=== PATIENT | male | born 1945 | race Caucasian/White ===

== ENCOUNTER 2016-09-29 12:40 | Observation (INO) ==
[2016-09-29] MEDS ORDERED: Polyethylene Glycol 3350 255 GM POWDER PO ONE (14:12)
--- NOTE | 2016-09-30 07:31 | History & Physical Report ---
Date of Encounter: 09/30/16 Time of Encounter: 07:30 24 Hour HP Update - Instructions Instructions: If the History and Physical is less than 30 days old and was completed prior to A.M. admission and or procedure and has NOT been updated on calendar day of procedure please complete this update prior to performing procedure. - Update Patient reports changes in Medical Condition: No Changes in assessment/condition: No Changes in Medication: No Preop tests/diagnostics Reviewed: Yes Surgery Remains Indicated: Yes Consent for Planned Operative Procedure(s) Verified: Yes - Pre-Operative Checklist Preoperative Checklist Indicated: No Is VTE Prophylaxis Indicated?: NO
[2016-09-30] MEDS ORDERED: Tetracaine/Benzocaine/Butamben 200MG/SPRAY (100SPY/BOT) MM ONE (07:32)
[2016-09-30] MEDS ORDERED: Simethicone 40 MG/0.6 ML MLS IR ONE (07:32)
[2016-09-30] MEDS ORDERED: *HR* Midazolam HCl 5 MG/5 ML VIAL IVP PRN (07:32)
[2016-09-30] MEDS ORDERED: *HR* FentaNYL (PF) 100 MCG/2 ML VIAL IVP PRN (07:32)
[2016-09-30] MEDS ORDERED: 0.9 % Sodium Chloride 1,000 ML IVC SCH (07:45)
--- NOTE | 2016-09-30 07:46 | Anesthesia Evaluation PreOp ---
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), GERD (diet controlled) Anesthesia History: No Prior Anesthetic Complications Alcohol Use: none Drug use: none Medications and Allergies CeleXA 08/27/15 [History] Erythromycin OPTH Oint [Erythromycin] 0.5 gm BOTH EYES QID 7 Days 08/27/15 [Rx] Flomax 08/27/15 [History] Neurontin 08/27/15 [History] Pravachol 08/27/15 [History] PriLOSEC 08/27/15 [History] Allergies ciprofloxacin Allergy (Verified 08/27/15 19:42) Rash fluconazole Allergy (Verified 08/27/15 19:42) Rash - Meds/Allergy Pre-op Review Medications Reviewed: Yes Allergies Reviewed: Yes Beta Blockers on Current Med List: No Anesthesia Results - Labs Laboratory Tests 07/10/16 07/10/16 07:36 07:36 WBC 8.7 Hgb 11.7 L Hct 38.9 Plt Count 414 H Sodium 143 Potassium 4.0 Chloride 105 Carbon Dioxide 27 BUN 24 Creatinine 0.87 Est GFR ( Amer) > 60 Est GFR (Non-Af Amer) > 60 BUN/Creatinine Ratio 28 H Glucose 87 Calculated Osmolality 299 Calcium 9.2 Anesthesia Exam Last Vital Signs Temp 97.9 F 09/30/16 07:15 Pulse 63 09/30/16 07:15 Resp 15 09/30/16 07:15 BP 166/81 09/30/16 07:15 Pulse Ox 93 L 09/30/16 07:15 - HEENT Pupil (Motor): Pupils equal, EOMI Mallampati: III Teeth: Edentulous Oral Opening: Greater than 3 - [facility] ATTENDANT LOC: Confused - Cardiac Rhythm: Regular Murmur: None - Pulmonary Breath Sounds: bilateral Clear Respiratory Effort: Symmetrical Anesthesia Assess/Plan ASA Score: 3 Modified Crane Scale for Level of Consciousness: Cooperative, oriented, and tranquil Anesthetic Plan: MAC Monitoring Plan: Standard Monitors Recovery Plan: PACU
--- NOTE | 2016-09-30 08:25 | General Surgery Progress Note ---
<Jaiden Zelaya - Last Filed: 09/30/16 08:45> Date of Encounter: 09/30/16 Time of Encounter: 07:20 - Assessment and Plan (1) Weight loss Current Visit: Yes Status: Acute This patient has underwent a 50lbs weight loss despite adequate oral intake. Last colonoscopy was 5 years ago without any polyps removed at that time. The weight loss began 07/2015 and he weighed 167lbs at that time. Caregivers report that the patient eats well and have not noticed any blood in the stools or diarrhea. He received an EGD today which demonstrated atrophic gastritis. He was scheduled for a colonoscopy as well, but was found to have a well formed stool and therefore colonoscopy could not be performed. Omeprazole 20mg daily for atrophic gastritis. The patient tolerated his mirilax bowel prep last night with nearly total completion. Magnesium citrate 1 bottle this morning with a second bottle scheduled in the afternoon. If that patient does not have clear bowel movements after the second bottle, then will proceed with enemas. Repeat colonoscopy after bowel prep complete. Subjective Patient reports: afebrile Narrative: The patient has underlying cognitive deficiencies making questioning difficult. He states he does not currently have any pain. Objective Vital Signs - Last 8 Hours Temp Pulse Resp BP Pulse Ox 09/30/16 07:15 97.9 F 63 15 166/81 93 L 09/30/16 03:33 98.0 F 68 12 141/74 97 Intake and Output 09/29/16 09/30/16 09/30/16 23:59 07:59 15:59 Intake Total 600 / 600 Balance 600 / 600 Intake: Oral 600 / 600 Other: Meal Dinner Stool Size Large Small Stool Consistency liquid Stool Color Brown Yellow # Voids 1 # Bowel Movements 1 1 Weight 56.427 kg Patient Weight 09/30/16 23:59 Weight 56.427 kg - General physical appearance cachectic - Eyes normal ocular movement - Neck Neck exam: trachea midline - Respiratory normal respiratory effort, clear to auscultation - Cardiovascular Cardiovascular exam: Present: RRR - Abdomen Abdomen: Present: bowel sounds present, soft, non tender - Integumentary no rash - Neurologic CN 2-12 grossly intact - Musculoskeletal other (Patient slumped over in bed in left lateral decubitus position.) - Psychiatric oriented to person Consult Discharge Plan - Plan Referrals: Misti Jennings MD [Primary Care Provider] - 10/04/16 2:50 pm - Attending Attestation I examined this patient and my medical decision-making was reviewed with the TRAFFIC ENGINEERING TECHNICIAN/PA/Advanced Practice Nurse/Resident Physician. I agree with the documented findings, disposition and treatment plan as described except to the extent set forth below. <Randal Bae - Last Filed: 09/30/16 14:11> Date of Encounter: 09/30/16 Objective Vital Signs - Last 8 Hours Temp Pulse Resp BP Pulse Ox 09/30/16 11:01 97.5 F L 65 15 150/80 97 09/30/16 07:15 97.9 F 63 15 166/81 93 L Intake and Output 09/29/16 09/30/16 09/30/16 23:59 07:59 15:59 Intake Total 600 / 600 360 / 360 Balance 600 / 600 360 / 360 Intake: Oral 600 / 600 360 / 360 Other: Meal Dinner clears Stool Size Large Small Stool Consistency liquid liquid Stool Color Brown Brown Yellow # Voids 1 # Bowel Movements 1 1 # Bowel Movement Diapers 5 Weight 56.427 kg Patient Weight 09/30/16 23:59 Weight 56.427 kg - Attending Attestation The patient was seen and evaluated today with the resident. I agree with the above documentation. The patient underwent EGD that demonstrated hemorrhagic atrophic gastritis as well as a large hiatal hernia and a suspected short segment of Marks's esophagus. The patient is a member of a half-way and is psychologically unable to perform the bowel prep as an outpatient. He was admitted as outpatient in the bed for bowel preparation. The patient did take all of his Gatorade MiraLAX prep but failed to get an adequate cleanout for colonoscopy. We will repeat his bowel preparation the day and perform his colonoscopy tomorrow. Randal Bae MD FACS
--- NOTE | 2016-09-30 10:17 | Anesthesia Evaluation Post Op ---
Date of Encounter: 09/30/16 Time of Encounter: 09:00 - Vital Signs Vital Signs: - Lungs Lungs: Clear Ascult./Percussion - Airway Airway: Non-obstructed - Cardiovascular Regular Rate - Mental Status Mental Status: Baseline Status - Pain Pain Scale: 2 - Nausea Vomiting Nausea Vomiting: Not Present - Hydration Hydration: NPO - Discharge PostOp Status: Transfer Patient to floor
[2016-09-30] MEDS: Finasteride 5 MG TABLET PO SCH (16:57)
[2016-09-30] MEDS: Aspirin 81 MG TAB.CHEW PO SCH (16:57)
--- NOTE | 2016-10-01 08:03 | General Surgery Progress Note ---
<Jaiden Zelaya - Last Filed: 10/01/16 09:55> Date of Encounter: 10/01/16 Time of Encounter: 07:15 - Assessment and Plan (1) Weight loss Current Visit: Yes Status: Acute He received an EGD yesterday which demonstrated atrophic gastritis. Omeprazole was started 20mg daily for atrophic gastritis. The patient tolerated his mirilax bowel prep last night with nearly total completion. 2 bottles of magnesium citrate given yesterday resulting in additional bowel movements, but did not become clear. Tap water enema given this morning. Repeat mirilax bowel prep during the day today as much as is tolerable for the patient. Repeat colonoscopy after bowel prep complete. Increase IV fluids from 50ml/hr to 75ml/hr to replenish fluid losses from bowel prep. Subjective Patient reports: no new complaints, afebrile Narrative: The patient is not very verbal at baseline. He was smiling this morning and responsive to commands. Objective Vital Signs - Last 8 Hours Temp Pulse Resp BP Pulse Ox 10/01/16 07:26 98 F 72 18 160/86 96 10/01/16 04:43 97.5 F L 72 20 160/83 96 10/01/16 03:20 97.3 F L 70 15 158/86 97 Intake and Output 09/30/16 10/01/16 10/01/16 23:59 07:59 15:59 Intake Total 400 / 400 Balance 400 / 400 Intake: Oral 400 / 400 Other: Meal Dinner # Voids 1 1 # Bowel Movements 1 1 Weight 51.3 kg Patient Weight 10/01/16 23:59 Weight 51.3 kg - General physical appearance no distress, cachectic - Eyes normal ocular movement - ENT normal mucosa - Respiratory normal respiratory effort, clear to auscultation - Cardiovascular Cardiovascular exam: Present: RRR - Abdomen Abdomen: Present: bowel sounds present, soft, non tender - Integumentary no rash - Neurologic CN 2-12 grossly intact - Musculoskeletal other (patient laying in bed in the left lateral decubitus position) - Psychiatric oriented to person - VTE Reasons for not Prescribing Prophylaxis: Treatment not Indicated - Low risk for VTE Consult Discharge Plan - Plan Referrals: Misti Jennings MD [Primary Care Provider] - 10/04/16 2:50 pm - Attending Attestation I examined this patient and my medical decision-making was reviewed with the EMPLOYMENT OFFICER/PA/Advanced Practice Nurse/Resident Physician. I agree with the documented findings, disposition and treatment plan as described except to the extent set forth below. <Randal Bae - Last Filed: 10/01/16 15:48> Objective Vital Signs - Last 8 Hours Temp Pulse Resp BP Pulse Ox 10/01/16 11:24 95 10/01/16 11:06 97.9 F 61 18 183/77 95 Intake and Output 09/30/16 10/01/16 10/01/16 23:59 07:59 15:59 Intake Total 400 / 400 0 / 0 Balance 400 / 400 0 / 0 Intake: Oral 400 / 400 0 / 0 Other: Meal Dinner npo # Voids 1 1 # Bowel Movements 1 1 Weight 51.3 kg Patient Weight 10/01/16 23:59 Weight 51.3 kg - Attending Attestation The patient is seen and evaluated with the resident on morning rounds. The patient continues to be challenged with bowel preparation. We will had another bowel prep today and hopefully proceed with colonoscopy later this afternoon Randal Bae MD FACS
[2016-10-01] MEDS: Aspirin 81 MG TAB.CHEW PO SCH (08:32)
[2016-10-01] MEDS: 0.9 % Sodium Chloride 1,000 ML IVC SCH ×2 (08:32→23:36)
[2016-10-01] MEDS: Finasteride 5 MG TABLET PO SCH (08:32)
[2016-10-01] MEDS ORDERED: Polyethylene Glycol 3350 255 GM POWDER PO ONE (09:00)
[2016-10-01] MEDS ORDERED: *HR* FentaNYL (PF) 100 MCG/2 ML VIAL IVP PRN (17:50)
[2016-10-01] MEDS ORDERED: Simethicone 40 MG/0.6 ML MLS IR ONE (17:50)
[2016-10-01] MEDS ORDERED: *HR* Midazolam HCl 5 MG/5 ML VIAL IVP PRN (17:50)
--- NOTE | 2016-10-01 17:50 | Pre-Sedation Evaluation ---
Pre-sedation evaluation - Pre-sedation checklist Date of procedure: 10/01/16 Procedure: colonoscopy Recent Vitals: Last Vital Signs Temp 97.9 F 10/01/16 11:06 Pulse 61 10/01/16 11:06 Resp 18 10/01/16 11:06 BP 183/77 10/01/16 11:06 Pulse Ox 95 10/01/16 11:24 H&P (including ROS) documented in medical record: Yes Previous reaction to sedatives/anesthetics: Unknown Dietary Status: NPO after Midnight Airway Assessment: Patient can open mouth completely, TMJ function normal Dentition: No loose teeth or bridges Possible difficult airway: No ASA Classification *see protocol: CLASS III-Severe systemic disease Plan of Care: Pt appropriate candidate for procedure/moderate/conscious sedation , Risks/benefits of procedure/sedation discussed w/ patient/family
[2016-10-01] MEDS ORDERED: *HR* Midazolam HCl 5 MG/5 ML VIAL IVP ONE (17:52)
[2016-10-01] MEDS ORDERED: *HR* FentaNYL (PF) 100 MCG/2 ML VIAL ONE (17:53)
[2016-10-02 07:21] VITALS: BP 199/91
--- NOTE | 2016-10-02 08:05 | Discharge Summary ---
<Jaiden Zelaya - Last Filed: 10/02/16 11:30> Date of Encounter: 10/02/16 Time of Encounter: 08:15 - Discharge Diagnosis (1) Weight loss Priority: Primary Status: Acute - Discharge Medications Home Medications: Aspirin Enteric Coated [Aspirin EC] 81 mg PO DAILY 09/30/16 [History] Citalopram [CeleXA] 20 mg PO DAILY 09/30/16 [History] Finasteride [Proscar] 5 mg PO DAILY 09/30/16 [History] Gabapentin [Neurontin] 100 mg PO HS 09/30/16 [History] Omeprazole [PriLOSEC] 20 mg PO DAILY 09/30/16 [History] Pravastatin Sodium [Pravachol] 20 mg PO DAILY 09/30/16 [History] Sennosides/Docusate Sodium [Senna Plus] 1 each PO BID PRN 09/30/16 [History] Tamsulosin [Flomax] 0.4 mg PO DAILY 09/30/16 [History] Triamcinolone Acet 0.1% CRM [Kenalog] 1 appl TP BID 09/30/16 [History] Allergies/Adverse Reactions: Allergies ciprofloxacin Allergy (Verified 08/27/15 19:42) Rash fluconazole Allergy (Verified 08/27/15 19:42) Rash General Surgery Exam Initial Vital Signs Temp Pulse Resp BP Pulse Ox 97.3 F L 75 16 163/82 99 09/29/16 13:12 09/29/16 13:12 09/29/16 13:12 09/29/16 13:12 09/29/16 13:12 - General physical appearance no distress, cachectic - Eyes normal ocular movement - ENT normal mucosa - Neck trachea midline - Respiratory normal respiratory effort, clear to auscultation - Cardiovascular Cardiovascular exam: Present: RRR - Abdomen Abdomen general surgery: Present: bowel sounds present, soft, non tender, scaphoid - Integumentary Integumentary general surgery: Present: warm and dry - Neurologic Present: other (unable to assess at this time.) - Musculoskeletal Present: normal posture - Psychiatric Psychiatric general surgery: Present: oriented to person Date of admission: 09/30/16 15:16 Primary care physician: Misti Jennings MD Discharging clinician: Randal Bae Anticipated date of discharge: 10/02/16 - Patient Status Disposition: Transfer SNF Condition: Fair Functional capacity at discharge: wheelchair bound Overall status at discharge: patient is back to baseline - Discharge Instructions Instructions: Diverticulitis (DC), Colorectal Polyps (DC) Follow Up With: Misti Jennings MD [Primary Care Provider] - 10/04/16 2:50 pm - Diet and Activity Activity: increase activity as tolerated Diet: advance to your usual diet - Hospital Course Hospital course: Mr. Panchal is a 71 year old male who was admitted as an outpatient in a bed the day prior to EGD with colonoscopy due to underlying cognitive deficit. He received a miralax bowel prep the night before, which was tolerated well. His colonoscopy could not be performed due to a formed stool being in the rectal vault. He received 2 bottles of magnesium citrate, which caused him to have several bowel movements, which were still not clear. He underwent a tap water enema the next morning of 10/01/16, which was reported as clear but had some resistance. Another Miralax bowel prep was ordered, and the patient was able to complete 3/4 of this prep. Colonoscopy was performed by Dr. Bae in the afternoon of 10/01/16. The patient tolerated the procedures well and is now cleared for discharge. - Time Spent with Patient Total time spent providing and/or coordinating discharge services: Less than 30 minutes Labs on day of discharge: Labs from last 24 hours 10/01/16 15:30 MRSA Surveillance Scrn Negative - Attending Attestation I examined this patient and my medical decision-making was reviewed with the SHAKER WASHER/PA/Advanced Practice Nurse/Resident Physician. I agree with the documented findings, disposition and treatment plan as described except to the extent set forth below. <Randal Bae - Last Filed: 10/04/16 08:23> General Surgery Exam Initial Vital Signs Temp Pulse Resp BP Pulse Ox 97.3 F L 75 16 163/82 99 09/29/16 13:12 09/29/16 13:12 09/29/16 13:12 09/29/16 13:12 09/29/16 13:12 Date of admission: 09/30/16 15:16 Primary care physician: Misti Jennings MD Consults: 10/02/16 09:06 Consult to Minesweeping Officer [CONS] Routine Reason for SW Consult: D/C AFTER ECF PLACEMENT - Hospital Course Hospital course: Mr. Panchal is a 71 year old male - Time Spent with Patient Total time spent providing and/or coordinating discharge services: - Attending Attestation The patient is seen and evaluated with rest and on morning rounds. He is back to his baseline. He has no abdominal pain. He is appropriate for discharge. Interval surveillance colonoscopy after polypectomy be determined by the pathology report polyps. He is appropriate for discharge. Randal Bae MD FACS
[2016-10-02] MEDS: 0.9 % Sodium Chloride 1,000 ML IVC SCH (09:01)
[2016-10-02] MEDS: Aspirin 81 MG TAB.CHEW PO SCH (09:06)
[2016-10-02] MEDS: Finasteride 5 MG TABLET PO SCH (09:06)
[2016-10-02] MEDS ORDERED: *HR* Propofol 200 MG/20 ML VIAL IVP ONE (11:25)
== END 2016-10-02 11:26 ==
LOC: SAMDAY 12:40 → 3BNU 12:40 → 2ANU 10-01 04:22
PROVIDERS: ADMIT Surgery; ATTEND Surgery
PROC: ENDOEBX (2016-09-30 08:30)

== ENCOUNTER 2016-10-15 00:35 | Inpatient (IN) ==
--- NOTE | 2016-10-15 01:39 | Emergency Department Note ---
Disposition Clinical Impression: Closed intertrochanteric fracture of left femur Qualifiers: Encounter type: initial encounter Qualified Code(s): S72.142A - Displaced intertrochanteric fracture of left femur, initial encounter for closed fracture Disposition: Admitted As Inpatient Condition: Fair Time of Disposition: 04:35 Fall HPI - General Chief Complaint: ED Fall Stated Complaint: fall Time Seen by Provider: 10/15/16 00:52 Source: patient, family, EMS Mode of arrival: ambulatory Limitations: no limitations Nursing Notes Reviewed: Yes Vital Signs Reviewed: Yes - History of Present Illness HPI Narrative: 71-year-old male with mechanical fall from standing, onto left hip. Patient with history of possible dementia, generalized weakness. Unable to ambulate after fall. /10 pain and achiness of the left hip. Possible deformity. His caregivers is primary historian, he was a limited history. Pt Subjective Complaint: fall Onset (ago): hour(s) Fall From: standing Fall Witnessed: no Place Fall Occurred: home Loss of Consciousness: unsure Prolonged Down Time?: no Context: tripped/slipped Location of injury - extremities: Left: hip Severity: moderate Severity scale (1-10): 6 Associated symptoms (after fall): Reports: weakness - Related Data Home Medications Medication Instructions Recorded Confirmed Aspirin Enteric Coated [Aspirin EC] 81 mg PO DAILY 09/30/16 10/15/16 Citalopram [CeleXA] 20 mg PO DAILY 09/30/16 10/15/16 Finasteride [Proscar] 5 mg PO DAILY 09/30/16 10/15/16 Omeprazole [PriLOSEC] 40 mg PO DAILY 09/30/16 10/15/16 Pravastatin Sodium [Pravachol] 20 mg PO DAILY 09/30/16 10/15/16 Sennosides/Docusate Sodium [Senna 1 each PO BID PRN 09/30/16 10/15/16 Plus] Tamsulosin [Flomax] 0.4 mg PO DAILY 09/30/16 10/15/16 Triamcinolone Acet 0.1% CRM 1 appl TP BID 09/30/16 10/15/16 [Kenalog] Mirtazapine [Mirtazapine] 15 mg PO HS 10/15/16 10/15/16 OLANZapine [Olanzapine] 10 mg PO DAILY 10/15/16 10/15/16 Allergies Allergy/AdvReac Type Severity Reaction Status Date / Time ciprofloxacin Allergy Rash Verified 08/27/15 19:42 fluconazole Allergy Rash Verified 08/27/15 19:42 Review of Systems: All systems were reviewed with historian and negative except as per below, or as documented in the HPI. Constitutional: Denies: fever, chills, weight changes CV: Denies: chest pain, palpitations Resp: Denies: cough, dyspnea GI: Denies: abdominal pain, N/V/D/C Denies: dysuria, hematuria MSK: Positive for left hip pain. Skin: Denies: new rashes, new lesions Neuro: unable to ambulate Denies: MARTI, weakness, sensory changes All systems ED: reviewed and negative except as stated. (Review of systems obtained and somewhat limited secondary to historian,) Fall PMH - Past Medical History Medical history: Reports: dementia, hyperlipidemia, hypertension, renal disease Psychiatric history: Reports: anxiety - Social History Smoking Status: Former smoker Alcohol use: Reports: none Drug use: Reports: none Physical Exam Constitutional: Thin cachectic male, appears moderately uncomfortable HEENT: NCAT, sclera anicteric, PERRLA bilaterally, normal external ears bilaterally, nasal septum nondeviated, average dentition, MMM Neck: normal inspection, neck is supple, trachea midline Resp: normal chest inspection, CTA bilaterally, thin barrel chested. CV: diminished Breath sounds bilaterally GI: normal inspection, Soft, NTND, BS present Neuro: A&O2, no gross motor or sensory deficits bilaterally MSK: Externally rotated shortened left leg, tenderness palpation of the left hip. There is no obvious deformity. Psych: normal mood, normal affect Skin: No rashes, skin warm, dry, intact - General Limitations: no limitations General appearance: alert, in no apparent distress Course Course Narrative: 71-year-old male with mechanical fall and left hip, given shortly rotated, shortened suspect fracture, x-ray CT had basic lab work ordered for workup. - Reevaluation(s) Reevaluation #1: Is with mild hypo-hypotension likely secondary to morphine, blood pressure 60/40 , fluid bolus ordered by Dr. Santana, patient to be admitted to the hospitalist service Dr. Elizalde accepted. Time: 04:36 Vital Signs Temperature 98.9 F 10/15/16 00:38 Pulse Rate 63 10/15/16 00:38 Respiratory Rate 18 10/15/16 00:38 Blood Pressure 213/113 10/15/16 00:38 O2 Sat by Pulse Oximetry 99 10/15/16 00:38 Temperature 98.1 F 10/15/16 15:00 Pulse Rate 85 10/15/16 15:00 Respiratory Rate 18 10/15/16 15:00 Blood Pressure 105/73 10/15/16 15:00 O2 Sat by Pulse Oximetry 96 10/15/16 15:00 Oxygen Delivery Oxygen Delivery Room Air Fall - Differential Diagnosis Likely: syncope, traumatic injury - Medical Records Medical records reviewed: Yes I reviewed the patient's medical records. - Lab Data Lab results reviewed: Yes I reviewed the patient's lab results. Result diagrams: 10/15/16 01:35 10/15/16 01:35 Lab Results 10/15/16 10/15/16 10/15/16 Range/Units 01:35 01:35 01:35 WBC 9.9 (4.3-11.1) K/mcL RBC 4.28 (4.19-5.50) M/mcL Hgb 11.5 L (12.9-16.9) g/dL Hct 37.0 L (37.5-50.1) % MCV 86.4 (83.0-100.0) fL MCH 26.9 L (28.0-33.3) pg MCHC 31.1 L (31.6-35.5) g/dL RDW 16.0 H (11.5-14.5) % Plt Count 284 (140-400) K/mcL MPV 9.6 (9.4-12.4) fL Immature Gran % 0.4 (0-4) % Seg Neutrophils % 79.0 % Lymphocytes % 13.1 % Monocytes % 5.3 % Eosinophils % 2.0 % Basophils % 0.2 % Neutrophils # 7.8 (1.6-8.9) K/mcL Lymphocytes # 1.3 (0.6-4.6) K/mcL Monocytes # 0.5 (0.0-1.3) K/mcL Eosinophils # 0.2 (0.0-0.6) K/mcL Basophils # 0.0 (0.0-0.2) K/mcL PT (9.4-12.1) Seconds INR APTT (26.0-36.0) Seconds Sodium 141 (136-145) mEq/L Potassium 4.7 H (3.5-4.5) mEq/L Chloride 103 (98-109) mEq/L Carbon Dioxide 27 (19-29) mEq/L BUN 22 (8-26) mg/dL Creatinine 1.25 (0.72-1.25) mg/dL Est GFR ( Amer) > 60 (> 60) Est GFR (Non-Af Amer) 57 L (> 60) BUN/Creatinine Ratio 18 (6-26) Glucose 83 (70-99) mg/dL Calculated Osmolality 294 (280-300) Calcium 8.5 L (8.6-10.8) mg/dL Phosphorus (2.3-4.7) mg/dL Magnesium (1.6-2.6) mg/dL Troponin I 0.00 (0-0.03) ng/mL Urine Color (Yellow) Urine Clarity (Clear) Urine pH (5.0-8.0) pH Units Ur Specific [place] (1.010-1.025) Urine Protein (Neg-Trace) mg/dL Urine Glucose (UA) (Normal) mg/dL Urine Ketones (Negative) mg/dL Urine Blood (Negative) Urine Nitrite (Negative) Urine Bilirubin (Negative) Urine Urobilinogen (Normal) mg/dL Ur Leukocyte Esterase (Negative) Urine Microscopic RBC (0-3) per hpf Urine Microscopic WBC (0-3) per hpf Ur Squamous Epith Cells (None-Few) per lpf Ur Renal Epithelial Cell (None-Few) per hpf Urine Bacteria (None-Few) per hpf Hyaline Casts (None-Few) per lpf Ur Culture Indicated? (NO) 10/15/16 10/15/16 10/15/16 Range/Units 03:30 08:06 08:06 WBC (4.3-11.1) K/mcL RBC (4.19-5.50) M/mcL Hgb (12.9-16.9) g/dL Hct (37.5-50.1) % MCV (83.0-100.0) fL MCH (28.0-33.3) pg MCHC (31.6-35.5) g/dL RDW (11.5-14.5) % Plt Count (140-400) K/mcL MPV (9.4-12.4) fL Immature Gran % (0-4) % Seg Neutrophils % % Lymphocytes % % Monocytes % % Eosinophils % % Basophils % % Neutrophils # (1.6-8.9) K/mcL Lymphocytes # (0.6-4.6) K/mcL Monocytes # (0.0-1.3) K/mcL Eosinophils # (0.0-0.6) K/mcL Basophils # (0.0-0.2) K/mcL PT 11.6 (9.4-12.1) Seconds INR 1.1 APTT 27.3 (26.0-36.0) Seconds Sodium (136-145) mEq/L Potassium (3.5-4.5) mEq/L Chloride (98-109) mEq/L Carbon Dioxide (19-29) mEq/L BUN (8-26) mg/dL Creatinine (0.72-1.25) mg/dL Est GFR ( Amer) (> 60) Est GFR (Non-Af Amer) (> 60) BUN/Creatinine Ratio (6-26) Glucose (70-99) mg/dL Calculated Osmolality (280-300) Calcium (8.6-10.8) mg/dL Phosphorus 4.0 (2.3-4.7) mg/dL Magnesium 1.5 L (1.6-2.6) mg/dL Troponin I (0-0.03) ng/mL Urine Color Yellow (Yellow) Urine Clarity Clear (Clear) Urine pH 7.5 (5.0-8.0) pH Units Ur Specific [place] 1.006 L (1.010-1.025) Urine Protein 30 H (Neg-Trace) mg/dL Urine Glucose (UA) Normal (Normal) mg/dL Urine Ketones Negative (Negative) mg/dL Urine Blood Large H (Negative) Urine Nitrite Negative (Negative) Urine Bilirubin Negative (Negative) Urine Urobilinogen Normal (Normal) mg/dL Ur Leukocyte Esterase Negative (Negative) Urine Microscopic RBC TNTC H (0-3) per hpf Urine Microscopic WBC 0-3 (0-3) per hpf Ur Squamous Epith Cells Many H (None-Few) per lpf Ur Renal Epithelial Cell Few (None-Few) per hpf Urine Bacteria Few (None-Few) per hpf Hyaline Casts None Seen (None-Few) per lpf Ur Culture Indicated? NO (NO) 10/15/16 Range/Units 08:06 WBC (4.3-11.1) K/mcL RBC (4.19-5.50) M/mcL Hgb (12.9-16.9) g/dL Hct (37.5-50.1) % MCV (83.0-100.0) fL MCH (28.0-33.3) pg MCHC (31.6-35.5) g/dL RDW (11.5-14.5) % Plt Count (140-400) K/mcL MPV (9.4-12.4) fL Immature Gran % (0-4) % Seg Neutrophils % % Lymphocytes % % Monocytes % % Eosinophils % % Basophils % % Neutrophils # (1.6-8.9) K/mcL Lymphocytes # (0.6-4.6) K/mcL Monocytes # (0.0-1.3) K/mcL Eosinophils # (0.0-0.6) K/mcL Basophils # (0.0-0.2) K/mcL PT (9.4-12.1) Seconds INR APTT (26.0-36.0) Seconds Sodium (136-145) mEq/L Potassium (3.5-4.5) mEq/L Chloride (98-109) mEq/L Carbon Dioxide (19-29) mEq/L BUN (8-26) mg/dL Creatinine (0.72-1.25) mg/dL Est GFR ( Amer) (> 60) Est GFR (Non-Af Amer) (> 60) BUN/Creatinine Ratio (6-26) Glucose (70-99) mg/dL Calculated Osmolality (280-300) Calcium (8.6-10.8) mg/dL Phosphorus (2.3-4.7) mg/dL Magnesium (1.6-2.6) mg/dL Troponin I 0.00 (0-0.03) ng/mL Urine Color (Yellow) Urine Clarity (Clear) Urine pH (5.0-8.0) pH Units Ur Specific [place] (1.010-1.025) Urine Protein (Neg-Trace) mg/dL Urine Glucose (UA) (Normal) mg/dL Urine Ketones (Negative) mg/dL Urine Blood (Negative) Urine Nitrite (Negative) Urine Bilirubin (Negative) Urine Urobilinogen (Normal) mg/dL Ur Leukocyte Esterase (Negative) Urine Microscopic RBC (0-3) per hpf Urine Microscopic WBC (0-3) per hpf Ur Squamous Epith Cells (None-Few) per lpf Ur Renal Epithelial Cell (None-Few) per hpf Urine Bacteria (None-Few) per hpf Hyaline Casts (None-Few) per lpf Ur Culture Indicated? (NO) - Radiology Data Radiology results reviewed: Yes I reviewed the patient's radiology results. Chest X-Ray 10/15/16 01:06 IMPRESSION: No acute cardiopulmonary disease. D/ / Partha Corona MD / Partha Corona MD Interpreting Provider: Partha Corona MD Head CT 10/15/16 01:06 IMPRESSION: 1. No acute intracranial abnormality. 2. Changes of prior right occipital craniotomy with underlying right cerebellar encephalomalacia. 3. 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 D/ / Serafin Veras MD / Serafin Veras MD Interpreting Provider: Serafin Veras MD Hip X-Ray 10/15/16 01:06 IMPRESSION: Acute, angulated left intertrochanteric femur fracture. D/ / Partha Corona MD / Partha Corona MD Interpreting Provider: Partha Corona MD Femur X-Ray 10/15/16 03:14 IMPRESSION: No fracture or malalignment in the visualized left femur. Left hip fracture was not included on these images. D/ / Partha Corona MD / Partha Corona MD Interpreting Provider: Partha Corona MD - EKG Data EKG attestation: Yes I reviewed and interpreted this EKG. EKG shows normal: sinus rhythm (65 bpm MA 209 distress [address] segment elevations or depressions right bundle branch block ) Rate: normal Rhythm: NSR Dawson/QRS: RBBB Interpretation: no acute changes, normal EKG - Core Measures AMI Core Measures Followed: No Measure Exclusions: not indicated Attestation Statement - Attestation Attestation: I personally interviewed and examined this patient and my medical decision- making was reviewed and discussed with the ED Resident Physician, Dr. Owusu. I agree with the documented findings, disposition and treatment plan as described in the chart. Pt sustained L intertroch hip fx secondary to mechanical fall. History provided by his caregiver at bedside. Pt will be admitted to medicine and orthopedics was consulted from the ED for mgmt of his hip fracture.
[2016-10-15 01:44] LABS: Basophils % 0.2 %; Eosinophils # 0.2 K/mcL (0.0-0.6); Hemoglobin 11.5 g/dL (12.9-16.9); Immature Granulocytes % 0.4 % (0-4); Lymphocytes # 1.3 K/mcL (0.6-4.6); Lymphocytes % 13.1 %; Mean Corpuscular HGB Conc 31.1 g/dL (31.6-35.5); Mean Corpuscular Hemoglobin 26.9 pg (28.0-33.3); Mean Corpuscular Volume 86.4 fL (83.0-100.0); Mean Platelet Volume 9.6 fL (9.4-12.4); Monocytes # 0.5 K/mcL (0.0-1.3); Monocytes % 5.3 %; Neutrophils # 7.8 K/mcL (1.6-8.9); Platelet Count 284 K/mcL (140-400); Red Blood Count 4.28 M/mcL (4.19-5.50)
[2016-10-15 02:20] LABS: BUN/Creatinine Ratio 18 (6-26); Blood Urea Nitrogen 22 mg/dL (8-26); Calcium 8.5 mg/dL (8.6-10.8); Carbon Dioxide 27 mEq/L (19-29); Chloride 103 mEq/L (98-109); Glucose 83 mg/dL (70-99); Osmolality,Calculated 294 (280-300); Potassium 4.7 mEq/L (3.5-4.5); Sodium 141 mEq/L (136-145); eGFR For African Americans > 60 (> 60); eGFR For Non-African Americans 57 (> 60)
[2016-10-15] MEDS ORDERED: *HR* Morphine 2 MG/ML SYRINGE IVP ONE (03:12)
[2016-10-15] MEDS ORDERED: Ondansetron 4 MG/2 ML VIAL IVP ONE (03:13)
[2016-10-15] MEDS ORDERED: 0.9 % Sodium Chloride 500 ML ONE (03:49)
[2016-10-15 04:43] LABS: Bilirubin,Urine Negative (Negative); Blood,Urine Large (Negative); Clarity,Urine Clear (Clear); Color,Urine Yellow (Yellow); Glucose,Urine (UA) Normal (Normal); Ketones,Urine Negative (Negative); Leukocyte Esterase,Urine Negative (Negative); Nitrite,Urine Negative (Negative); PH,Urine 7.5 pH Units (5.0-8.0); Protein,Urine 30 mg/dL (Neg-Trace); Specific Gravity,Urine 1.006 (1.010-1.025); Urobilinogen,Urine Normal (Normal)
[2016-10-15 04:46] LABS: Hyaline Casts,Urine None Seen per lpf (None-Few); Squamous Epithelial Cell,Urine Many per lpf (None-Few); WBC,Urine 0-3 per hpf (0-3)
[2016-10-15 05:06] LABS: RBC,Urine TNTC per hpf (0-3); Renal Epithelial Cells,Urine Few per hpf (None-Few)
[2016-10-15 05:07] LABS: Bacteria,Urine Few per hpf (None-Few)
[2016-10-15] MEDS ORDERED: Sennosides/Docusate Sodium TABLET PO PRN (05:53)
[2016-10-15] MEDS ORDERED: *HR* Morphine 2 MG/ML SYRINGE IVP PRN (05:55)
[2016-10-15] MEDS ORDERED: Acetaminophen 325 MG TABLET PO PRN (05:55)
[2016-10-15] MEDS ORDERED: Ondansetron 4 MG/2 ML VIAL IVP PRN (05:55)
[2016-10-15] MEDS ORDERED: *HR* OxyCODONE Immed Rel 5 MG TABLET PO PRN (05:55)
[2016-10-15] MEDS ORDERED: Naloxone 0.4 MG/ML INJ IVP PRN (05:55)
--- NOTE | 2016-10-15 06:12 | Internal Med History&Physical ---
Date of Encounter: 10/15/16 Time of Encounter: 06:00 Assessment and Plan (1) HTN (hypertension) Current visit: Yes Status: Chronic . Qualifiers: Hypertension type: essential hypertension Qualified Code(s): I10 - Essential (primary) hypertension (2) CKD (chronic kidney disease) stage 3, GFR 30-59 ml/min Current visit: Yes Status: Chronic . (3) Anxiety associated with depression Current visit: Yes Status: Chronic . (4) Mental retardation Current visit: Yes Status: Chronic . (5) Dementia arising in the senium and presenium Current visit: Yes Status: Chronic . (6) Plaque psoriasis Current visit: Yes Status: Chronic . (7) HLD (hyperlipidemia) Current visit: Yes Status: Chronic . Qualifiers: Hyperlipidemia type: unspecified Qualified Code(s): E78.5 - Hyperlipidemia , unspecified (8) COPD (chronic obstructive pulmonary disease) Current visit: Yes Status: Chronic . Qualifiers: COPD type: unspecified COPD Qualified Code(s): J44.9 - Chronic obstructive pulmonary disease, unspecified (9) Closed intertrochanteric fracture of left femur Current visit: Yes Status: Acute . Qualifiers: Encounter type: initial encounter Qualified Code(s): S72.142A - Displaced intertrochanteric fracture of left femur, initial encounter for closed fracture (10) Weight loss Current visit: Yes Status: Acute . (11) Anemia Current visit: Yes Status: Acute . Qualifiers: Anemia type: unspecified type Qualified Code(s): D64.9 - Anemia, unspecified (12) Osteoarthritis involving multiple joints on both sides of body Current visit: Yes Status: Chronic . (13) Atherosclerotic cardiovascular disease Current visit: Yes Status: Chronic . (14) Vitamin D deficiency Current visit: Yes Status: Chronic . (15) BPH (benign prostatic hypertrophy) with urinary retention Current visit: Yes Status: Chronic . (16) Poor appetite Current visit: Yes Status: Chronic . (17) At risk for acute confusion Current visit: Yes Status: Acute . (18) At risk for activity intolerance Current visit: Yes Status: Acute . Internal Medicine - H&P: HPI Chief complaint: Mechanical fall. Left leg injury Admitted From: Emergency Dept Plans for Post Hospital Care: Home History of present illness: Mr. Panchal is a 71 year old male with history significant of MRDD, early dementia unspecified, hypertension, dyslipidemia, BPH/prostatism with urinary retention, depression-anxiety, GERD, chronic constipation, chronic plaque psoriasis, anemia of chronic disease, glaucoma, CKD II-III, vit D deficiency, osteoarthritis, COPD, former smoker. The patient was visited and interviewed and examined. Patient presents as a non -historian circumstances of the events of his chronic debility/MRDD. Details of events are collected from caregiver/guardian at the bedside. She was admitted via the emergency department when he presents in the company of family via EMS services from home following a mechanical fall with injury. She presents a history of MR DD increasing degrees of behavioral disturbances of late for which she caregiver/guardian has sought assistance from family care physician for sedatives to address. She will treatments by the primary care physician or poorly tolerated and were withdrawn and with their withdrawal the patient became much more hyper active. Consequently experienced increasing frequencies of falls. Appetite has been poor and some weight loss has been seen along with a sense generalized weakness. It was due to the hyperactivity that is felt led to the mechanical fall. Patient was unable to ambulate following the fall. Pain was assisted being roughly a 6-7/10 in severity. Severe achiness of the left hip and leg but it is mobility. He refers witnessing his distress somewhat to EMS transport to the emergency room for evaluation. Findings in the ED: Temperature 98.9 pulse 63-85 respirations 18 BP 105-213/73- 113. O2 saturation 99% room air. WBC 9.9 hemoglobin 11.5 platelets 284,000. RDW 16. MCH 26.9 and MCHC 31.1. Differential normal. Metabolic panel normal. Potassium 4.7. BUN 20 creatinine 1.5. GFR 57. Glucose 83 osmolality 294. Calcium 8.5. Troponin 0.00. PT 11.6 INR 1.1 PTT 27.3. Magnesium 1.5 phosphorus 4. Urinalysis large protein and large blood. Wished to count RBC. 3 WBC. Many epithelial cells. Renal epithelial cells. Few bacteria. EKG normal sinus rhythm. Right bundle branch block pattern. No acute ischemic changes. CT of head demonstrated no acute intracranial abnormalities. Changes of prior right occipital craniotomy with underlying right cerebellar encephalomalacia. Small-volume biparietal encephalomalacia underlying to remote burn holes. No hydrocephalus or collection seen. Midline is maintained. No acute intracranial hemorrhage or ischemia noted. Orbits and sinuses soft tissue skull benign. X-ray left femur demonstrates no fracture or malalignment did not visualize left femur. Left hip fracture not included in these images. Knee joint alignment normal. Mild spurring in lateral and patellofemoral compartments. No knee joint effusion identified. Atherosclerotic calcifications present. Left hip x-ray demonstrates acute angulated left intratrochanteric femur fracture. Comminuted. 90 degrees of angulation. No other fracture identified. Atherosclerotic calcification seen. Portable chest x-ray demonstrates no acute or active cardiopulmonary process. 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 No acute fracture. Preliminary impression suggest acute comminuted, angulated left intratrochanteric femur fracture mechanical fall. No other musculoskeletal injuries are apparent. Screening studies note a mild anemia. Indices suggest iron deficiency. No evidence for acute blood loss. Mild renal insufficiency stage II. Mild associated electrolyte and metabolic derangements noted. The patient's presenting complaints, findings and his comorbidities he will be at risk for further acute clinical decline and morbidity in this setting. Workup and treatment will progress comprehensively. Cumulative laboratory and radiographic data base was reviewed, considered and discussed. Pertinent ancillary medical records including ECW and PCI documentation was reviewed and considered. Given the patient's presenting concerns, past medical history, clinical findings and symptoms, he is admitted at this time will undergo further evaluation and disposition. Orders were written as per the computerized physician order entry specialist system.......................................................................... .................... Consultative opinions will be sought as clinical circumstances justify. Consultative opinion has been requested orthopedic surgery. Pain management needs will be addressed. Laboratory and radiographic data base will be updated as appropriate. Studies include: CPK, PT/INR/APTT, cardiac injury panel, BNP, metabolic and hematologic panel, magnesium phosphorus, ionized calcium, thyroid panel, lipid profile, A1c , C-peptide, CRP sedimentation rate, blood gas, lactic acid, UA, serologies, etc. Precautions: Aspiration, fall, seizure, delirium protocol/surveillance initiated. Telemetry with continuous hemodynamic monitoring and pulse oximetry initiated. OrthoStatic vital signs. Bladder scan with postvoid measurements. Empiric antibiotic coverage: pending diagnostics/culture data. Special studies: CT head, left femur x-ray, left hip x-ray, chest x-ray, telemetry, EKG. Pulmonary toilet: Incentive spirometry. Aerosol bronchodilator, mucolytic, antitussivePRN. Supplemental oxygen. Corticosteroid therapyPRN. CPAP/BiPAP supplemental oxygen deliveryPRN.. Aerosol Mucomyst therapyPRN. Fluid and electrolyte repletion efforts will proceed. Careful attention to fluid balance and renal recovery will be emphasized. Avoidance of nephrotoxic exposure and adverse drug drug interaction in the setting of impaired renal function will be monitored closely. Acute coronary syndrome protocol/surveillance initiated. DVT and PUD prophylaxis initiated: PPI therapy, intermittent pneumatic cuffs. Subcutaneous heparin. Early ambulation will be encouraged. Immunization updates recommended. Influenza and pneumococcal vaccinations as part of ongoing preventative healthcare recommendations strongly recommended. Smoking cessation counseling briefly addressed. Patient is a former smoker. Advanced care directive discussion briefly addressed. Patient does not declare any healthcare restrictions at this time as per caregiver/guardian. Cardiovascular risk appraisal and cardiovascular risk reduction efforts will be emphasized. Physical and occupational therapy consulted to evaluate patient's functional capacity and progress mobility as circumstances permit. Nutrition/dietary education-counseling and dietary supplements may be considered as circumstances justify. Outpatient medication schedules will be reviewed, confirmed and facilitated as appropriate. Reconciliation of home treatments including adjustments, substitutions and reintroduction into the treatment regimen will address necessary maintenance therapies for chronic pre-existing medical conditions. Plan of care has been reviewed and discussed in detail with the patient's caregiver/guardian. Questions addressed. Hospital course dictated by clinical findings, treatment response and potential consultative interventions. Patient is at risk for further acute clinical decline and morbidity due to his advanced age, chief complaints and comorbid conditions. Condition is serious. Prognosis is guarded. CODE STATUS is full. Past Med Surg Social Fam HX - Past Medical History Source: old records reviewed Medical history: arthritis, COPD, dementia, hyperlipidemia, hypertension, renal disease, other Psychiatric history: anxiety - Past Surgical History Surgical History: cataract, other (Craniotomy. EGD. Colonoscopy.) - Social History Smoking Status: Former smoker Smokeless Tobacco Status: No Alcohol use: none Drug use: none Occupational status: disabled Current living situation: With Family Activity Level: Independent ambulation, Mostly sedentary Recent Out of Country Travel Within the Last 8 Weeks: No Exposure or Possible Exposure to Illness During Travel: No Internal Medicine - H&P: Meds Aspirin Enteric Coated [Aspirin EC] 81 mg PO DAILY 09/30/16 [History] Citalopram [CeleXA] 20 mg PO DAILY 09/30/16 [History] Finasteride [Proscar] 5 mg PO DAILY 09/30/16 [History] Omeprazole [PriLOSEC] 40 mg PO DAILY 09/30/16 [History] Pravastatin Sodium [Pravachol] 20 mg PO DAILY 09/30/16 [History] Sennosides/Docusate Sodium [Senna Plus] 1 each PO BID PRN 09/30/16 [History] Tamsulosin [Flomax] 0.4 mg PO DAILY 09/30/16 [History] Triamcinolone Acet 0.1% CRM [Kenalog] 1 appl TP BID 09/30/16 [History] Mirtazapine [Mirtazapine] 15 mg PO HS 10/15/16 [History] OLANZapine [Olanzapine] 10 mg PO DAILY 10/15/16 [History] Allergies ciprofloxacin Allergy (Verified 08/27/15 19:42) Rash fluconazole Allergy (Verified 08/27/15 19:42) Rash ROS unobtainable: due to mental status All Systems PM: A 10-system review of systems was performed and is negative for pertinent findings except as documented above in the HPI. Patient is a non-historian of his circumstances to his primary notation to MRDD and dementia. Details are thus collected from his caregiver at the bedside, EMS and ED triage and collective medical records. - Constitutional Constitutional: as per HPI - EENT Eyes: as per HPI Ears: as per HPI Nose, mouth and throat: as per HPI - Cardiovascular Cardiovascular ROS IM: as per HPI - Respiratory Respiratory: as per HPI - Gastrointestinal Gastrointestinal: as per HPI - Genitourinary Genitourinary ROS male: as per HPI - Musculoskeletal Musculoskeletal ROS IM: as per HPI - Integumentary Integumentary IM: as per HPI - Neurological Neurological ROS: as per HPI - Psychiatric Psychiatric: as per HPI - Endocrine Endocrine IM: as per HPI - Hematologic/Lymphatic Hematologic/Lymphatic: as per HPI - Allergic/Immunologic Allergic/Immunologic: as per HPI - Constitutional Vitals: Temp Pulse Resp BP Pulse Ox 97.5 F L 67 15 110/66 98 10/15/16 05:16 10/15/16 05:16 10/15/16 05:16 10/15/16 05:16 10/15/16 05:16 General appearance: Present: cachectic, A&O X 1, mild distress, underweight. Absent: answers questions appropriately - Head Head exam: Present: atraumatic, normocephalic - Eye Eye exam: Present: EOMI, PERRL, conjuntiva pink, sclera anicteric Pupils: Present: normal accommodation, PERRL - ENT ENT exam: Present: mucous membranes moist, normal oropharynx - Neck Neck exam general surgery: Present: full ROM, supple, trachea midline. Absent: lymphadenopathy - Respiratory Respiratory exam: Present: decreased breath sounds, CTAB. Absent: accessory muscle use, rales, rhonchi, wheezes - Cardiovascular Cardiovascular exam: Present: distant heart sounds, RRR, +S1, +S2. Absent: diastolic murmur, gallop, rubs, systolic murmur - GI/Abdominal GI/Abdominal exam: Present: normal bowel sounds, soft, no peritoneal signs. Absent: distended, tenderness - Extremities Exam Extremities exam: Present: warm, radial pulses palpable and symetrical. Absent : calf tenderness, cyanotic, pedal edema - Expanded Lower Extremities Exam Hip exam: Present: shortening, swelling, tenderness. Absent: full ROM (left femur) Upper Leg exam: Present: swelling, tenderness. Absent: full ROM (left femur) Neuro vascular tendon exam: Present: no vascular compromise, significant pain with passive ROM of distal joint. Absent: pulse deficit, sensory deficit Gait: Present: unable to bear weight - Neurological Exam Neurological exam: Present: alert, CN II-XII intact, oriented X3, no focal deficits. Absent: pronater drift, facial droop, speech deficit - Expanded Neurological Exam Neurological exam expanded: Present: protecting the airway. Absent: expressive aphasia, receptive aphasia Patient oriented to: Present: person. Absent: place, time Speech: Present: garbled. Absent: fluid speech Coma Scale Eye Opening: Spontaneous Coma Scale Motor Response: Localizes to Pain Coma Scale Verbal Response: Incomprehensible Coma Scale Total: 11 - Psychiatric Psychiatric exam: Present: normal affect, normal mood - Skin Skin exam: Present: dry, intact Internal Med - H&P Results - Labs CBC & Chem 7: 10/15/16 01:35 10/15/16 01:35 Labs: Urine 10/15/16 Range/Units 03:30 Urine Color Yellow (Yellow) Urine Clarity Clear (Clear) Urine pH 7.5 (5.0-8.0) pH Units Ur Specific [place] 1.006 L (1.010-1.025) Urine Protein 30 H (Neg-Trace) mg/dL Urine Glucose (UA) Normal (Normal) mg/dL - Impressions Vital Signs Temp Pulse Resp BP Pulse Ox 10/15/16 05:16 97.5 F L 67 15 110/66 98 10/15/16 04:27 16 105/65 10/15/16 03:42 84 18 100/75 98 10/15/16 01:41 190/123 10/15/16 00:38 98.9 F 63 18 213/113 99 Intake and Output 10/14/16 10/14/16 10/15/16 15:59 23:59 07:59 Output Total 1050 / 1050 Balance -1050 / -1050 Output: Catheter 1050 / 1050 Other: Weight 53.8 kg Patient Weight 10/15/16 23:59 Weight 53.8 kg Short CBC 10/15/16 Range/Units 01:35 WBC 9.9 (4.3-11.1) K/mcL Hgb 11.5 L (12.9-16.9) g/dL Hct 37.0 L (37.5-50.1) % Plt Count 284 (140-400) K/mcL Neutrophils # 7.8 (1.6-8.9) K/mcL BMP 10/15/16 Range/Units 01:35 Sodium 141 (136-145) mEq/L Potassium 4.7 H (3.5-4.5) mEq/L Chloride 103 (98-109) mEq/L Carbon Dioxide 27 (19-29) mEq/L BUN 22 (8-26) mg/dL Creatinine 1.25 (0.72-1.25) mg/dL Glucose 83 (70-99) mg/dL Calcium 8.5 L (8.6-10.8) mg/dL Cardiac Enzymes 10/15/16 Range/Units 01:35 Troponin I 0.00 (0-0.03) ng/mL Urine 10/15/16 Range/Units 03:30 Urine Color Yellow (Yellow) Urine Clarity Clear (Clear) Urine pH 7.5 (5.0-8.0) pH Units Ur Specific [place] 1.006 L (1.010-1.025) Urine Protein 30 H (Neg-Trace) mg/dL Urine Glucose (UA) Normal (Normal) mg/dL Abnormal lab results Hgb 11.5 g/dL (12.9-16.9) L 10/15/16 01:35 Hct 37.0 % (37.5-50.1) L 10/15/16 01:35 MCH 26.9 pg (28.0-33.3) L 10/15/16 01:35 MCHC 31.1 g/dL (31.6-35.5) L 10/15/16 01:35 RDW 16.0 % (11.5-14.5) H 10/15/16 01:35 Potassium 4.7 mEq/L (3.5-4.5) H 10/15/16 01:35 Est GFR (Non-Af Amer) 57 (> 60) L 10/15/16 01:35 Calcium 8.5 mg/dL (8.6-10.8) L 10/15/16 01:35 Ur Specific [place] 1.006 (1.010-1.025) L 10/15/16 03:30 Urine Protein 30 mg/dL (Neg-Trace) H 10/15/16 03:30 Urine Blood Large (Negative) H 10/15/16 03:30 Urine Microscopic RBC TNTC per hpf (0-3) H 10/15/16 03:30 Ur Squamous Epith Cells Many per lpf (None-Few) H 10/15/16 03:30 Allergies Allergy/AdvReac Type Severity Reaction Status Date / Time ciprofloxacin Allergy Rash Verified 08/27/15 19:42 fluconazole Allergy Rash Verified 08/27/15 19:42 Laboratory Results WBC 9.9 K/mcL (4.3-11.1) 10/15/16 01:35 RBC 4.28 M/mcL (4.19-5.50) 10/15/16 01:35 Hgb 11.5 g/dL (12.9-16.9) L 10/15/16 01:35 Hct 37.0 % (37.5-50.1) L 10/15/16 01:35 MCV 86.4 fL (83.0-100.0) 10/15/16 01:35 MCH 26.9 pg (28.0-33.3) L 10/15/16 01:35 MCHC 31.1 g/dL (31.6-35.5) L 10/15/16 01:35 RDW 16.0 % (11.5-14.5) H 10/15/16 01:35 Plt Count 284 K/mcL (140-400) 10/15/16 01:35 MPV 9.6 fL (9.4-12.4) 10/15/16 01:35 Immature Gran % 0.4 % (0-4) 10/15/16 01:35 Seg Neutrophils % 79.0 % 10/15/16 01:35 Lymphocytes % 13.1 % 10/15/16 01:35 Monocytes % 5.3 % 10/15/16 01:35 Eosinophils % 2.0 % 10/15/16 01:35 Basophils % 0.2 % 10/15/16 01:35 Neutrophils # 7.8 K/mcL (1.6-8.9) 10/15/16 01:35 Lymphocytes # 1.3 K/mcL (0.6-4.6) 10/15/16 01:35 Monocytes # 0.5 K/mcL (0.0-1.3) 10/15/16 01:35 Eosinophils # 0.2 K/mcL (0.0-0.6) 10/15/16 01:35 Basophils # 0.0 K/mcL (0.0-0.2) 10/15/16 01:35 Sodium 141 mEq/L (136-145) 10/15/16 01:35 Potassium 4.7 mEq/L (3.5-4.5) H 10/15/16 01:35 Chloride 103 mEq/L (98-109) 10/15/16 01:35 Carbon Dioxide 27 mEq/L (19-29) 10/15/16 01:35 BUN 22 mg/dL (8-26) 10/15/16 01:35 Creatinine 1.25 mg/dL (0.72-1.25) 10/15/16 01:35 Est GFR ( Amer) > 60 (> 60) 10/15/16 01:35 Est GFR (Non-Af Amer) 57 (> 60) L 10/15/16 01:35 BUN/Creatinine Ratio 18 (6-26) 10/15/16 01:35 Glucose 83 mg/dL (70-99) 10/15/16 01:35 Calculated Osmolality 294 (280-300) 10/15/16 01:35 Calcium 8.5 mg/dL (8.6-10.8) L 10/15/16 01:35 Troponin I 0.00 ng/mL (0-0.03) 10/15/16 01:35 Urine Color Yellow (Yellow) 10/15/16 03:30 Urine Clarity Clear (Clear) 10/15/16 03:30 Urine pH 7.5 pH Units (5.0-8.0) 10/15/16 03:30 Ur Specific [place] 1.006 (1.010-1.025) L 10/15/16 03:30 Urine Protein 30 mg/dL (Neg-Trace) H 10/15/16 03:30 Urine Glucose (UA) Normal mg/dL (Normal) 10/15/16 03:30 Urine Ketones Negative mg/dL (Negative) 10/15/16 03:30 Urine Blood Large (Negative) H 10/15/16 03:30 Urine Nitrite Negative (Negative) 10/15/16 03:30 Urine Bilirubin Negative (Negative) 10/15/16 03:30 Urine Urobilinogen Normal mg/dL (Normal) 10/15/16 03:30 Ur Leukocyte Esterase Negative (Negative) 10/15/16 03:30 Urine Microscopic RBC TNTC per hpf (0-3) H 10/15/16 03:30 Urine Microscopic WBC 0-3 per hpf (0-3) 10/15/16 03:30 Ur Squamous Epith Cells Many per lpf (None-Few) H 10/15/16 03:30 Ur Renal Epithelial Cell Few per hpf (None-Few) 10/15/16 03:30 Urine Bacteria Few per hpf (None-Few) 10/15/16 03:30 Hyaline Casts None Seen per lpf (None-Few) 10/15/16 03:30 Ur Culture Indicated? NO (NO) 10/15/16 03:30 Impressions Chest X-Ray 10/15/16 01:06 IMPRESSION: No acute cardiopulmonary disease. D/ / Partha Corona MD / Partha Corona MD Interpreting Provider: Partha Corona MD Head CT 10/15/16 01:06 IMPRESSION: 1. No acute intracranial abnormality. 2. Changes of prior right occipital craniotomy with underlying right cerebellar encephalomalacia. 3. 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 D/ / Serafin Veras MD / Serafin Veras MD Interpreting Provider: Serafin Veras MD Hip X-Ray 10/15/16 01:06 IMPRESSION: Acute, angulated left intertrochanteric femur fracture. D/ / Partha Corona MD / Partha Corona MD Interpreting Provider: Partha Corona MD Femur X-Ray 10/15/16 03:14 IMPRESSION: No fracture or malalignment in the visualized left femur. Left hip fracture was not included on these images. D/ / Partha Corona MD / Partha Corona MD Interpreting Provider: Partha Corona MD
[2016-10-15] MEDS ORDERED: Haloperidol Lactate 5 MG/ML VIAL IVP PRN (06:24)
[2016-10-15] MEDS ORDERED: *HR* LORazepam 2 MG/ML VIAL IVP PRN (06:24)
--- NOTE | 2016-10-15 08:31 | Orthopedic Consult Note ---
Date of Encounter: 10/15/16 Time of Encounter: 08:29 Assessment and Plan (1) Closed intertrochanteric fracture of left femur Current Visit: Yes Status: Acute I did discuss the diagnosis in detail with the patient's mold operator. The patient has a left comminuted intratrochanteric hip fracture. I did discuss treatment options and in order to stabilize the hip to provide pain control and facilitate nursing care my recommendation was for reduction and internal fixation of the left hip. The patient will require medical clearance. I did discuss the reasonable for stable postoperative course. The risks discussed included but were not limited to bleeding, infection, anesthesia risks, damage to neurovascular structures, tendons, ligaments, and bone. Also discussed was the risk of continued symptoms and possible need for further procedures. I explained this to the mold operator and simple terms and she wished to proceed. Consent will be obtained. We will plan on surgery tomorrow. Qualifiers: Encounter type: initial encounter Qualified Code(s): S72.142A - Displaced intertrochanteric fracture of left femur, initial encounter for closed fracture History of Present Illness HPI: Mr. Panchal is a 71 year old male with a history of MRDD who sustained a fall yesterday evening resulting in a left intertrochanteric hip fracture. The patient was admitted to the hospitalist and I was counseled to to assist in the evaluation and management. The patient is unable to provide any history. The caretakers at the bedside and provided the history. The patient is an ambulator and has been very unsteady on his feet as of late. She describes his gait is shuffling. She feels that he has been developing dementia in addition to the MRDD. Nevertheless she heard a thud and found him down. She did attempt to get him back up but was unable to put weight down on the left lower side. The patient was able to indicate he had left hip pain. That is when he came in for evaluation in the emergency department. The patient does not complain of any other pain. Unable to obtain any details regarding modifying factors or associated signs or symptoms or the quality of the pain. Past Med Surg Social Fam HX - Past Medical History Medical history: arthritis, COPD, dementia, hyperlipidemia, hypertension, renal disease, other Psychiatric history: anxiety - Past Surgical History Surgical History: cataract, other (Craniotomy. EGD. Colonoscopy.) - Social History Smoking Status: Former smoker Smokeless Tobacco Status: No Alcohol use: none Drug use: none Medications and Allergies Aspirin Enteric Coated [Aspirin EC] 81 mg PO DAILY 09/30/16 [History] Citalopram [CeleXA] 20 mg PO DAILY 09/30/16 [History] Finasteride [Proscar] 5 mg PO DAILY 09/30/16 [History] Omeprazole [PriLOSEC] 40 mg PO DAILY 09/30/16 [History] Pravastatin Sodium [Pravachol] 20 mg PO DAILY 09/30/16 [History] Sennosides/Docusate Sodium [Senna Plus] 1 each PO BID PRN 09/30/16 [History] Tamsulosin [Flomax] 0.4 mg PO DAILY 09/30/16 [History] Triamcinolone Acet 0.1% CRM [Kenalog] 1 appl TP BID 09/30/16 [History] Allergies ciprofloxacin Allergy (Verified 08/27/15 19:42) Rash fluconazole Allergy (Verified 08/27/15 19:42) Rash ROS unobtainable: due to mental status Physical Exam - Constitutional Vitals: Temp Pulse Resp BP Pulse Ox 97.5 F L 67 15 110/66 98 10/15/16 05:16 10/15/16 05:16 10/15/16 05:16 10/15/16 05:16 10/15/16 05:16 Constitutional -Vitals reviewed -The patient is well developed and well nourished. -Mood is pleasant. -The patient is well groomed. Psychiatric -MRDD Respiratory: -Respiratory effort normal Abdomen: -Soft abdomen -Non tender -Non distended: Left upper extremity: -No deformities. The overlying skin is intact. No obvious signs of acute trauma. -No tenderness to palpation throughout. -No significant pain with passive motion of the shoulder, elbow, wrist, and fingers within the limits of the bed. -Unable to perform a meaningful neurologic exam due to his mental status. -Radial pulse is present; Fingers have good capillary refill. Right upper extremity: -No deformities. The overlying skin is intact. No obvious signs of acute trauma. -No tenderness to palpation throughout. -No significant pain with passive motion of the shoulder, elbow, wrist, and fingers within the limits of the bed. -Unable to perform a meaningful neurologic exam due to his mental status. -Radial pulse is present; Fingers have good capillary refill. Left lower extremity: -The extremity is shortened. The overlying skin is intact. -There is tenderness in the groin region as well as the proximal lateral thigh. -I did not range the hip due to the known fracture. -No tenderness along the distal thigh, leg, ankle, foot, or toes. -Unable to perform a meaningful neurologic exam due to his mental status. -Toes have good capillary refill. Right lower extremity: -No deformities. The overlying skin is intact. No obvious signs of acute trauma. -No tenderness to palpation throughout. -No pain with passive motion of the hip, knee, ankle, and toes within the limits of the bed. -No pain with axial loading of the thigh. -Unable to perform a meaningful neurologic exam due to his mental status. -Toes have good capillary refill. Results - Labs Result Diagrams: 10/15/16 01:35 10/15/16 01:35 Labs: Abnormal lab results Hgb 11.5 g/dL (12.9-16.9) L 10/15/16 01:35 Hct 37.0 % (37.5-50.1) L 10/15/16 01:35 MCH 26.9 pg (28.0-33.3) L 10/15/16 01:35 MCHC 31.1 g/dL (31.6-35.5) L 10/15/16 01:35 RDW 16.0 % (11.5-14.5) H 10/15/16 01:35 Potassium 4.7 mEq/L (3.5-4.5) H 10/15/16 01:35 Est GFR (Non-Af Amer) 57 (> 60) L 10/15/16 01:35 Calcium 8.5 mg/dL (8.6-10.8) L 10/15/16 01:35 Ur Specific [place] 1.006 (1.010-1.025) L 10/15/16 03:30 Urine Protein 30 mg/dL (Neg-Trace) H 10/15/16 03:30 Urine Blood Large (Negative) H 10/15/16 03:30 Urine Microscopic RBC TNTC per hpf (0-3) H 10/15/16 03:30 Ur Squamous Epith Cells Many per lpf (None-Few) H 10/15/16 03:30 All other labs normal. - Diagnostic results Hip x-ray: image reviewed (Left comminuted intertrochanteric hip fracture.) Consult Discharge Plan - Plan Referrals: Misti Jennings MD [Primary Care Provider] -
[2016-10-15] MEDS: 0.9 % Sodium Chloride 1,000 ML IVC SCH (08:43)
[2016-10-15] MEDS: Finasteride 5 MG TABLET PO SCH (08:45)
[2016-10-15] MEDS: Aspirin Enteric Coated 81 MG Tablet PO SCH (08:45)
[2016-10-15 09:04] LABS: INR 1.1; Prothrombin Time 11.6 Seconds (9.4-12.1)
[2016-10-15 09:07] LABS: Activated Partial Thrombo Time 27.3 Seconds (26.0-36.0)
[2016-10-15 09:17] LABS: Magnesium 1.5 mg/dL (1.6-2.6)
--- NOTE | 2016-10-15 12:00 | Internal Med Progress Note ---
Date of Encounter: 10/15/16 Time of Encounter: 12:00 - Assessment and plan (1) Closed intertrochanteric fracture of left femur Current Visit: Yes Status: Acute Assessment and plan: Orthopedics on board For surgery a.m DVT prophylaxis Qualifiers: Encounter type: initial encounter Qualified Code(s): S72.142A - Displaced intertrochanteric fracture of left femur, initial encounter for closed fracture (2) CKD (chronic kidney disease) stage 3, GFR 30-59 ml/min Current Visit: Yes Status: Chronic Assessment and plan: Chronic, stable (3) COPD (chronic obstructive pulmonary disease) Current Visit: Yes Status: Chronic Assessment and plan: No wheezing Duo nebs prn Qualifiers: COPD type: unspecified COPD Qualified Code(s): J44.9 - Chronic obstructive pulmonary disease, unspecified (4) Dementia arising in the senium and presenium Current Visit: Yes Status: Chronic Assessment and plan: Continue home meds (5) HLD (hyperlipidemia) Current Visit: Yes Status: Chronic Assessment and plan: COntinue Zocor Qualifiers: Hyperlipidemia type: unspecified Qualified Code(s): E78.5 - Hyperlipidemia , unspecified (6) HTN (hypertension) Current Visit: Yes Status: Chronic Assessment and plan: Controlled without medications Qualifiers: Hypertension type: essential hypertension Qualified Code(s): I10 - Essential (primary) hypertension (7) Mental retardation Current Visit: Yes Status: Chronic (8) Plaque psoriasis Current Visit: Yes Status: Chronic (9) Anxiety associated with depression Current Visit: Yes Status: Chronic Assessment and plan: Continue home meds - Subjective Interval history: 71 Y/O M PMH of MRDD, COPD, CKD III, Anxiety, HLD, Dementia Patient is admitted and being managed for R intertrochnateric fracture secondary to fall Patient is seen a bedside and is a poor historian He denies any new complains Orthopedics, is following, input appreciated - Constitutional Vitals: Temp Pulse Resp BP Pulse Ox 97.4 F L 80 83 100/65 95 10/15/16 11:13 10/15/16 08:58 10/15/16 11:13 10/15/16 11:13 10/15/16 11:13 General appearance: Present: cachectic, A&O X 1, pleasant, no acute distress, underweight. Absent: answers questions appropriately - Head Head exam: Present: atraumatic - Eye Eye exam: Present: PERRL, conjuntiva pink, sclera anicteric - ENT ENT exam: Present: mucous membranes moist - Neck Neck exam general surgery: Present: normal inspection - Respiratory Respiratory exam: Present: CTAB Additional comments: Barrel chest - Cardiovascular Cardiovascular exam: Present: distant heart sounds, RRR, +S1, +S2. Absent: systolic murmur - GI/Abdominal Additional comments: Scaphoid abdomen, not tender, no palpably enlarged organs - Extremities Exam Extremities exam: Present: warm, radial pulses palpable and symetrical. Absent : calf tenderness, cyanotic, pedal edema Additional comments: R lower extremity shorter, internally rotated, pulses present - Neurological Exam Neurological exam: Present: alert, CN II-XII intact, no focal deficits. Absent : oriented X3, pronater drift, facial droop, speech deficit - Skin Skin exam: Present: dry, intact Internal Medicine: Result - Labs CBC & Chem 7: 10/15/16 01:35 10/15/16 01:35 Labs: Cardiac Enzymes 10/15/16 Range/Units 08:06 Troponin I 0.00 (0-0.03) ng/mL Urine 10/15/16 Range/Units 03:30 Urine Color Yellow (Yellow) Urine Clarity Clear (Clear) Urine pH 7.5 (5.0-8.0) pH Units Ur Specific [place] 1.006 L (1.010-1.025) Urine Protein 30 H (Neg-Trace) mg/dL Urine Glucose (UA) Normal (Normal) mg/dL - ABG Interpretation ABG results: PT/INR, D-dimer PT 11.6 Seconds (9.4-12.1) 10/15/16 08:06 - Impressions Impressions Chest X-Ray 10/15/16 06:41 IMPRESSION: No acute cardiopulmonary process. D/ / Devin Ross MD / Devin Ross MD Interpreting Provider: Devin Ross MD Consult Discharge Plan - Plan Referrals: Misti Jennings MD [Primary Care Provider] - 11/15/16 9:20 am Tramaine Carbone DPM [Partnered Physician] - 10/29/16 10:15 am Liban Adan MD [Partnered Physician] - 02/17/17 2:15 pm
[2016-10-15] MEDS: Triamcinolone Acet 0.1% CRM 15 GM TUBE TP SCH ×2 (12:09→23:08)
--- NOTE | 2016-10-15 14:11 | Electrocardiograph Report ---
[address] [address] Test Date: 2016-10-15 Pat Name: Maxim Panchal Department: 105 Room: 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
[2016-10-15] MEDS ORDERED: Ipratropium/Albuterol Neb 3 ML IH PRN (16:52)
--- NOTE | 2016-10-15 21:19 | Anesthesia Evaluation PreOp ---
Date of Encounter: 10/15/16 Time of Encounter: 21:17 - Past History Planned Operation: L hip IM nailing Cardiac History: HTN, Hyperlipidemia Pulmonary History: Former smoker (quit 10-15 years ago), COPD ACCOUNTS PAYABLE SPECIALIST History: Other (Dementia, MR) Other Medical History: Renal (stage 2 CKD), GERD (diet controlled), Other ( decubitus ulcer back, glaucoma, chronic plaque psoriasis, vit D deficiency, anxiety/depression, anemia of chronic disease) Anesthesia History: No Prior Anesthetic Complications Alcohol Use: none Drug use: none Medications and Allergies Aspirin Enteric Coated [Aspirin EC] 81 mg PO DAILY 09/30/16 [History] Citalopram [CeleXA] 20 mg PO DAILY 09/30/16 [History] Finasteride [Proscar] 5 mg PO DAILY 09/30/16 [History] Omeprazole [PriLOSEC] 40 mg PO DAILY 09/30/16 [History] Pravastatin Sodium [Pravachol] 20 mg PO DAILY 09/30/16 [History] Sennosides/Docusate Sodium [Senna Plus] 1 each PO BID PRN 09/30/16 [History] Tamsulosin [Flomax] 0.4 mg PO DAILY 09/30/16 [History] Triamcinolone Acet 0.1% CRM [Kenalog] 1 appl TP BID 09/30/16 [History] Mirtazapine [Mirtazapine] 15 mg PO HS 10/15/16 [History] OLANZapine [Olanzapine] 10 mg PO DAILY 10/15/16 [History] Allergies ciprofloxacin Allergy (Verified 08/27/15 19:42) Rash fluconazole Allergy (Verified 08/27/15 19:42) Rash - Meds/Allergy Pre-op Review Medications Reviewed: Yes Allergies Reviewed: Yes Beta Blockers on Current Med List: No Anesthesia Results - Labs 10/15/16 01:35 10/15/16 01:35 - Imaging EKG: report reviewed, image reviewed (SR; borderline LAD) Anesthesia Exam Last Vital Signs Temp 99.4 F 10/15/16 19:00 Pulse 68 10/15/16 19:00 Resp 17 10/15/16 19:00 BP 106/66 10/15/16 19:00 Pulse Ox 95 10/15/16 19:00 Weight: 54 kg - HEENT Pupil (Motor): Pupils equal, EOMI Mallampati: III Teeth: Edentulous Oral Opening: Greater than 3 - ACCOUNTS PAYABLE SPECIALIST LOC: Confused - Cardiac Rhythm: Regular Murmur: None - Pulmonary Breath Sounds: bilateral Clear (barrel chest) Respiratory Effort: Symmetrical Anesthesia Assess/Plan ASA Score: 3 Modified [place] Scale for Level of Consciousness: Anixous, agitated or restless Anesthetic Plan: General Monitoring Plan: Standard Monitors Recovery Plan: PACU
[2016-10-15] MEDS: *HR* Heparin 5,000 UNIT/ML VIAL SQ SCH (23:08)
[2016-10-16] MEDS: 0.9 % Sodium Chloride 1,000 ML IVC SCH (04:50)
[2016-10-16] MEDS: *HR* Heparin 5,000 UNIT/ML VIAL SQ SCH ×2 (05:39→13:09)
[2016-10-16 06:29] LABS: BUN/Creatinine Ratio 25 (6-26); Calcium 7.7 mg/dL (8.6-10.8); Carbon Dioxide 28 mEq/L (19-29); Chloride 106 mEq/L (98-109); Chol/HDL Ratio 2.1 (0-4.9); Cholesterol 87 mg/dL (< 200); Glucose 102 mg/dL (70-99); HDL Cholesterol 41 mg/dL (40-59); LDL Cholesterol,Calculated 37 mg/dL (0-99); Osmolality,Calculated 298 (280-300); Potassium 5.1 mEq/L (3.5-4.5); Sodium 140 mEq/L (136-145); Triglycerides 45 mg/dL (< 150); eGFR For African Americans > 60 (> 60); eGFR For Non-African Americans 52 (> 60)
[2016-10-16 06:30] LABS: Blood Urea Nitrogen 34 mg/dL (8-26)
[2016-10-16 07:30] LABS: Basophils % 0.1 %; Eosinophils % 0.2 %; Hematocrit 24.1 % (37.5-50.1); Hemoglobin 7.5 g/dL (12.9-16.9); Immature Granulocytes % 0.3 % (0-4); Immature Platelets 3.1 % (1.1-6.1); Lymphocytes # 1.4 K/mcL (0.6-4.6); Lymphocytes % 13.6 %; Mean Corpuscular HGB Conc 31.1 g/dL (31.6-35.5); Mean Corpuscular Hemoglobin 27.4 pg (28.0-33.3); Mean Platelet Volume 10.2 fL (9.4-12.4); Monocytes # 0.6 K/mcL (0.0-1.3); Monocytes % 5.9 %; Platelet Count 270 K/mcL (140-400); Red Blood Count 2.74 M/mcL (4.19-5.50); Red Cell Distribution Width 16.2 % (11.5-14.5); Segmented Neutrophils % 79.9 %
[2016-10-16] MEDS ORDERED: 0.9 % Sodium Chloride 1,000 ML IVC ONE (07:59)
[2016-10-16] MEDS: Finasteride 5 MG TABLET PO SCH (09:06)
[2016-10-16] MEDS: Aspirin Enteric Coated 81 MG Tablet PO SCH (09:06)
[2016-10-16] MEDS ORDERED: 0.9 % Sodium Chloride 250 ML IVC PRN (09:10)
--- NOTE | 2016-10-16 09:12 | Orthopedics Progress Note ---
Date of Encounter: 10/16/16 Time of Encounter: 09:10 - Assessment and Plan (1) Closed intertrochanteric fracture of left femur Current Visit: Yes Status: Acute I did discuss the diagnosis in detail with the patient's cfa. The patient has a left comminuted intratrochanteric hip fracture. I did discuss treatment options and in order to stabilize the hip to provide pain control and facilitate nursing care my recommendation was for reduction and internal fixation of the left hip. The patient will require medical clearance. I did discuss the reasonable for stable postoperative course. The risks discussed included but were not limited to bleeding, infection, anesthesia risks, damage to neurovascular structures, tendons, ligaments, and bone. Also discussed was the risk of continued symptoms and possible need for further procedures. I explained this to the cfa and simple terms and she wished to proceed. Consent will be obtained. We will plan on surgery tomorrow. Qualifiers: Encounter type: initial encounter Qualified Code(s): S72.142A - Displaced intertrochanteric fracture of left femur, initial encounter for closed fracture Subjective Interval history: S: Resting comfortably in bed. No new complaints. O: Afeb, low BPs. Left leg shortened; Unable to participate in a neurologic exam due to mental status. A: Left intertrochanteric hip fracture; Blood loss anemia P: Recommend reduction and fixation of the left hip to provide pain control and facilitate nursing care. Will transfuse preoperatively given hemoglobin. Objective Vital signs: Vital Signs Temp Pulse Resp BP Pulse Ox 10/16/16 06:54 98.2 F 78 18 153/54 94 L 10/16/16 06:28 75 133/56 10/16/16 04:00 98.7 F 76 17 114/70 96 10/16/16 00:00 98.3 F 80 16 117/73 97 10/15/16 23:21 97 10/15/16 19:00 99.4 F 68 17 106/66 95 10/15/16 15:00 98.1 F 85 18 105/73 96 Intake and Output 10/15/16 10/16/16 10/16/16 23:59 07:59 15:59 Intake Total 100 / 100 1160 / 1160 Output Total 325 / 325 350 / 350 Balance -225 / -225 810 / 810 Intake: IV Fluids 1000 / 1000 0.9 % Sodium Chloride 1, 1000 / 1000 000 ML @ 50 mls/hr IVC . Q20H [facility] Rx#:[id number] Oral 100 / 100 160 / 160 Output: Urine 325 / 325 200 / 200 Catheter 150 / 150 Other: Meal Dinner Percent of Meal Consumed 50% - Labs CBC & BMP: 10/16/16 06:46 10/16/16 05:49 Labs: Abnormal lab results RBC 2.74 M/mcL (4.19-5.50) L 10/16/16 06:46 Hgb 7.5 g/dL (12.9-16.9) L D 10/16/16 06:46 Hct 24.1 % (37.5-50.1) L 10/16/16 06:46 MCH 27.4 pg (28.0-33.3) L 10/16/16 06:46 MCHC 31.1 g/dL (31.6-35.5) L 10/16/16 06:46 RDW 16.2 % (11.5-14.5) H 10/16/16 06:46 Potassium 5.1 mEq/L (3.5-4.5) H 10/16/16 05:49 BUN 34 mg/dL (8-26) H D 10/16/16 05:49 Creatinine 1.34 mg/dL (0.72-1.25) H 10/16/16 05:49 Est GFR (Non-Af Amer) 52 (> 60) L 10/16/16 05:49 Glucose 102 mg/dL (70-99) H 10/16/16 05:49 Calcium 7.7 mg/dL (8.6-10.8) L 10/16/16 05:49 Magnesium 1.5 mg/dL (1.6-2.6) L 10/15/16 08:06 Ur Specific [place] 1.006 (1.010-1.025) L 10/15/16 03:30 Urine Protein 30 mg/dL (Neg-Trace) H 10/15/16 03:30 Urine Blood Large (Negative) H 10/15/16 03:30 Urine Microscopic RBC TNTC per hpf (0-3) H 10/15/16 03:30 Ur Squamous Epith Cells Many per lpf (None-Few) H 10/15/16 03:30 Consult Discharge Plan - Plan Referrals: Misti Jennings MD [Primary Care Provider] - 11/15/16 9:20 am Tramaine Carbone DPM [Partnered Physician] - 10/29/16 10:15 am Liban Adan MD [Partnered Physician] - 02/17/17 2:15 pm
[2016-10-16] MEDS: Triamcinolone Acet 0.1% CRM 15 GM TUBE TP SCH ×2 (10:08→19:58)
--- NOTE | 2016-10-16 12:18 | Internal Med Progress Note ---
Date of Encounter: 10/16/16 Time of Encounter: 09:45 - Assessment and plan (1) Closed intertrochanteric fracture of left femur Current Visit: Yes Status: Acute Assessment and plan: Orthopedics on board For surgery today DVT prophylaxis Qualifiers: Encounter type: initial encounter Qualified Code(s): S72.142A - Displaced intertrochanteric fracture of left femur, initial encounter for closed fracture (2) CKD (chronic kidney disease) stage 3, GFR 30-59 ml/min Current Visit: Yes Status: Chronic Assessment and plan: Slight increase in CR, possibly from dehydration, Avoid nephrotoxins, monitor Chem (3) COPD (chronic obstructive pulmonary disease) Current Visit: Yes Status: Chronic Assessment and plan: No wheezing Duo nebs prn Qualifiers: COPD type: unspecified COPD Qualified Code(s): J44.9 - Chronic obstructive pulmonary disease, unspecified (4) Dementia arising in the senium and presenium Current Visit: Yes Status: Chronic Assessment and plan: Continue home meds (5) HLD (hyperlipidemia) Current Visit: Yes Status: Chronic Assessment and plan: COntinue Zocor Qualifiers: Hyperlipidemia type: unspecified Qualified Code(s): E78.5 - Hyperlipidemia , unspecified (6) HTN (hypertension) Current Visit: Yes Status: Chronic Assessment and plan: Controlled without medications Qualifiers: Hypertension type: essential hypertension Qualified Code(s): I10 - Essential (primary) hypertension (7) Mental retardation Current Visit: Yes Status: Chronic (8) Plaque psoriasis Current Visit: Yes Status: Chronic Assessment and plan: Continue triamcinolone (9) Anxiety associated with depression Current Visit: Yes Status: Chronic Assessment and plan: Continue home meds (10) Acute on chronic renal insufficiency Current Visit: Yes Status: Acute Assessment and plan: Cr today is 1.34, slight increase from 1.25 previously. Will give 1L bolus Patient on [place],making urine Possibly due to dehydration. (11) Anemia Current Visit: Yes Status: Acute Assessment and plan: Suspected due to fracture RBCS ordered already by ortho MOnitor Hb Qualifiers: Anemia type: unspecified type Qualified Code(s): D64.9 - Anemia, unspecified (12) Hyperkalemia Current Visit: Yes Status: Acute Assessment and plan: K 5.1 NPO for now Will monitor after surgery, to ensure resolution Rpt K a.m - Subjective Interval history: 71 Y/O M PMH of MRDD, COPD, CKD III, Anxiety, HLD, Dementia Patient is admitted and being managed for R intertrochnateric fracture secondary to fall Patient is seen a bedside and is a poor historian He denies any new complains, he is able to say a few words, denied pain Work up today with hyperkalemia and MATHEW. Possibly due to dehydration. IVF bolus ordered. he also has significant drop in his Hb, not dilutional as other cell lines are comparable to previous values There is no visible source of bleeding, may be related to his fracture He is for surgery today - Constitutional Vitals: Temp Pulse Resp BP Pulse Ox 98.3 F 64 17 122/58 94 L 10/16/16 12:10 10/16/16 12:10 10/16/16 12:10 10/16/16 12:10 10/16/16 12:10 General appearance: Present: cachectic, A&O X 1, no acute distress, underweight. Absent: answers questions appropriately - Head Head exam: Present: atraumatic, normocephalic - Eye Eye exam: Present: PERRL, conjuntiva pink, sclera anicteric Pupils: Present: PERRL - ENT ENT exam: Present: mucous membranes dry, mucous membranes moist - Respiratory Respiratory exam: Present: CTAB Additional comments: Barrel chest, cachectic patient - Cardiovascular Cardiovascular exam: Present: RRR, +S1, +S2. Absent: diastolic murmur, gallop, rubs, systolic murmur - GI/Abdominal GI/Abdominal exam: Present: normal bowel sounds, soft, no peritoneal signs. Absent: distended, tenderness - Extremities Exam Extremities exam: Present: warm, radial pulses palpable and symetrical. Absent : calf tenderness, cyanotic, pedal edema - Neurological Exam Neurological exam: Present: alert, CN II-XII intact, no focal deficits. Absent : pronater drift, facial droop, speech deficit - Skin Skin exam: Present: dry Internal Medicine: Result - Labs CBC & Chem 7: 10/16/16 06:46 10/16/16 05:49 Labs: Short CBC 10/16/16 Range/Units 06:46 WBC 10.0 (4.3-11.1) K/mcL Hgb 7.5 L D (12.9-16.9) g/dL Hct 24.1 L (37.5-50.1) % Plt Count 270 (140-400) K/mcL Neutrophils # 8.0 (1.6-8.9) K/mcL BMP 10/16/16 05:49 Sodium 140 Potassium 5.1 H Chloride 106 Carbon Dioxide 28 BUN 34 H D Creatinine 1.34 H Glucose 102 H Calcium 7.7 L Cardiac Enzymes 10/15/16 10/15/16 Range/Units 15:53 22:26 Troponin I 0.00 0.00 (0-0.03) ng/mL - ABG Interpretation ABG results: PT/INR, D-dimer PT 11.6 Seconds (9.4-12.1) 10/15/16 08:06 Consult Discharge Plan - Plan Referrals: Misti Jennings MD [Primary Care Provider] - 11/15/16 9:20 am Tramaine Carbone DPM [Partnered Physician] - 10/29/16 10:15 am Liban Adan MD [Partnered Physician] - 02/17/17 2:15 pm
[2016-10-16] MEDS ORDERED: *HR* FentaNYL (PF) 100 MCG/2 ML VIAL ONE (14:41)
[2016-10-16] MEDS ORDERED: *HR* Propofol 200 MG/20 ML VIAL IVP ONE (14:41)
[2016-10-16] MEDS ORDERED: Lidocaine -MPF 2% 2 ML VIAL ONE (14:42)
[2016-10-16] MEDS ORDERED: EPHEDrine 50 MG/ML VIAL ONE (15:21)
[2016-10-16] MEDS ORDERED: *HR* Metoprolol 5 MG/5 ML VIAL IVP ONE (15:47)
[2016-10-16] MEDS ORDERED: Dexamethasone 4 MG/ML VIAL ONE (15:48)
[2016-10-16] MEDS ORDERED: Ondansetron 4 MG/2 ML VIAL ONE (15:48)
[2016-10-16] MEDS ORDERED: *HR* Morphine 2 MG/ML SYRINGE IVP PRN (15:52)
[2016-10-16] MEDS ORDERED: Ondansetron 4 MG/2 ML VIAL IVP ONE (15:52)
[2016-10-16] MEDS ORDERED: *HR* Labetalol 100 MG/20 ML MDV IVP PRN (15:52)
--- NOTE | 2016-10-16 16:41 | Orthopedic Operative Note ---
Date of procedure: 10/16/16 Procedure: OPERATIVE REPORT DATE OF PROCEDURE: 10/16/2016 SURGEON: Franklin Jessica MD WELLNESS AMBASSADOR(S): There were no assistants PREOPERATIVE DIAGNOSIS: Left comminuted intertrochanteric hip fracture POSTOPERATIVE DIAGNOSIS: Same PROCEDURE: Reduction and internal fixation of the left hip ANESTHESIA: General anesthesia PREOPERATIVE ANTIBIOTICS: Ancef ESTIMATED BLOOD LOSS: 200 milliliters IMPLANTS: [place]stone gamma 3 short nail (11 mm x 125 degree) with a 100 mm lag screw PREOPERATIVE NOTE AND INDICATIONS: Maxim is a 71-year-old sustained a left intertrochanteric hip fracture. It was quite comminuted. The recommendation was for reduction and fixation in order to control pain and facilitate nursing care. I did discuss this with the patient's cost analyst and power of sand wheeler. The surgical plan was discussed with the power of sand wheeler. The risks, benefits , alternatives, and potential complications of this procedure were discussed with the patient including injury to veins, arteries, nerves, tendons, ligaments , and bone. Also discussed were the risks of infection, bleeding, pain, blood clots, the possible need for a blood transfusion, the possible need for further procedures, heart attack, stroke, and . Specific risks include malunion, nonunion, implant failure. All of this was explained in simple terms, and the power of sand wheeler verbalized understanding and wished to proceed. Consent was given to proceed with surgery. PROCEDURE: The patient was seen in the preoperative holding area where the identify and the consent were confirmed. The left thigh was marked. Final questions were answered. The patient was brought back to the operating room and placed supine on the operating room table. A huddle was performed with the patient and all vital surgical team members confirming patient identity, the correct procedure, and the correct operative site. Gen. anesthesia was administered. The patient was placed in the traction table and the operative extremity was placed on traction and internal rotation and adduction. The nonoperative leg was flexed and abducted out of the way. X-rays confirmed reasonable position of the left hip. The the left thigh was prepped and draped in the usual sterile fashion. A surgical time out was performed immediately preceding the incision with all personnel in the operating room to confirm patient identity, the correct operative site and extremity, correct radiographic studies, availability of appropriate surgical equipment, and agreement on the planned procedure. After the administration of anesthesia and prior to the incision the patient did have a bout of unstable blood pressure going down to the mid 40s systolic. He was placed on pressors. In order to reduce the operative time the decision was made to perform a short medullary nail as opposed to a long medullary nail. Incision was made on the proximal thigh and dissection proceeded through the gluteal fascia. The guidewire was placed on the proximal trochanteric region and driven in. The opening reamer was used. The definitive short medullary nail was inserted into the proximal femur. The triple sleeve was used to mumtaz the lateral skin and the skin and fascia were opened laterally. A guidewire was placed into the femoral head through the triple sleeve. The lag screw was measured and a 100 mm felt appropriate. The reamer was sent up the guidewire. The definitive lack screw was placed. The triple sleeve for the distal locking screw was placed. The skin was opened and the fascia as well. This was drilled and filled with a screw. The wounds were copiously irrigated. The fascia was closed with 0 Vicryl stitches followed by skin with 3-0 Vicryl stitches and jose. X-rays confirmed adequate position of the hip. Sterile dressings were placed. The patient was taken off the traction table and placed on his regular hospital bed. The instrument, sponge, and needle counts were correct after wound closure. POST OPERATIVE PLAN: Weight Bearing: weightbearing as tolerated DVT Prophylaxis: Aspirin 325 mg by mouth twice a day Activity: As tolerated with assistance Wound Care: Daily dressing changes on postoperative day 2. Perioperative antibiotic prophylaxis: 2 doses of Ancef Social work for discharge planning Follow Up: 2 weeks
[2016-10-16 17:31] LABS: Hematocrit 26.6 % (37.5-50.1); Hemoglobin 8.5 g/dL (12.9-16.9)
--- NOTE | 2016-10-16 17:33 | Anesthesia Evaluation Post Op ---
Date of Encounter: 10/16/16 Time of Encounter: 17:32 - Vital Signs Vital Signs: Vital Signs/O2 Sat, Most Current Temp Pulse Resp BP Pulse Ox 97.8 F 92 16 129/83 98 10/16/16 17:01 10/16/16 17:21 10/16/16 17:21 10/16/16 17:21 10/16/16 17:21 - Lungs Lungs: Clear Ascult./Percussion - Airway Airway: Non-obstructed - Cardiovascular Regular Rate - Mental Status Mental Status: Alert & Oriented, Answers Appropriately - Pain Pain Scale: 0 Pain Scale used: Numeric (1 - 10) - Hydration Hydration: Ice chips, Spears catheter - Discharge PostOp Status: Transfer Patient to floor
--- NOTE | 2016-10-16 19:08 | Orthopedics Progress Note ---
Date of Encounter: 10/16/16 Time of Encounter: 17:00 - Assessment and Plan (1) Closed intertrochanteric fracture of left femur Current Visit: Yes Status: Acute I did discuss the diagnosis in detail with the patient's grooming assistant. The patient has a left comminuted intratrochanteric hip fracture. I did discuss treatment options and in order to stabilize the hip to provide pain control and facilitate nursing care my recommendation was for reduction and internal fixation of the left hip. The patient will require medical clearance. I did discuss the reasonable for stable postoperative course. The risks discussed included but were not limited to bleeding, infection, anesthesia risks, damage to neurovascular structures, tendons, ligaments, and bone. Also discussed was the risk of continued symptoms and possible need for further procedures. I explained this to the grooming assistant and simple terms and she wished to proceed. Consent will be obtained. We will plan on surgery tomorrow. Qualifiers: Encounter type: initial encounter Qualified Code(s): S72.142A - Displaced intertrochanteric fracture of left femur, initial encounter for closed fracture Subjective Interval history: S: Patient was seen in the PACU. Drowsy and not participating in exam. O: Afebrile and VSS; Left thigh dressing was clean, dry, intact. A: Post internal fixation of the left hip. P: Checking H/H, PT/OT WBAT B/L LE able, Aspirin 325 mg PO BID for DVT prophylaxis, 2 doses of Ancef Objective Vital signs: Vital Signs Temp Pulse Resp BP Pulse Ox 10/16/16 18:54 97.4 F L 74 18 131/74 98 10/16/16 18:30 97.4 F L 79 16 115/74 96 10/16/16 18:03 86 16 108/71 95 10/16/16 17:31 97.7 F 89 16 119/81 97 10/16/16 17:21 92 16 129/83 98 10/16/16 17:11 96 16 127/85 97 10/16/16 17:01 97.8 F 104 16 128/88 96 10/16/16 16:51 100 16 112/76 100 10/16/16 16:41 89 16 119/77 100 10/16/16 16:31 97.6 F 89 16 126/84 100 10/16/16 13:12 97.8 F 69 20 144/74 97 10/16/16 12:57 97.6 F 64 20 124/67 94 L 10/16/16 12:10 98.3 F 64 17 122/58 94 L 10/16/16 06:54 98.2 F 78 18 153/54 94 L 10/16/16 06:28 75 133/56 10/16/16 04:00 98.7 F 76 17 114/70 96 10/16/16 00:00 98.3 F 80 16 117/73 97 10/15/16 23:21 97 Intake and Output 10/16/16 10/16/16 10/16/16 07:59 15:59 23:59 Intake Total 1160 / 1160 1000 / 1000 Output Total 350 / 350 640 / 640 100 / 100 Balance 810 / 810 360 / 360 -100 / -100 Intake: IV Fluids 1000 / 1000 1000 / 1000 0.9 % Sodium Chloride 1, 1000 / 1000 1000 / 1000 000 ML @ 3750 mls/hr IVC .Q16M ONE Rx#:[id number] Oral 160 / 160 0 / 0 Blood Product 0 / 0 Rbcs Leuko Poor As-1 0 / 0 Unit [id number] Output: Urine 200 / 200 Estimated Blood Loss 100 / 100 Catheter 150 / 150 640 / 640 Other: Meal Lunch Percent of Meal Consumed 0% - Labs CBC & BMP: 10/16/16 17:16 10/16/16 05:49 Labs: Abnormal lab results RBC 2.74 M/mcL (4.19-5.50) L 10/16/16 06:46 Hgb 8.5 g/dL (12.9-16.9) L 10/16/16 17:16 Hct 26.6 % (37.5-50.1) L 10/16/16 17:16 MCH 27.4 pg (28.0-33.3) L 10/16/16 06:46 MCHC 31.1 g/dL (31.6-35.5) L 10/16/16 06:46 RDW 16.2 % (11.5-14.5) H 10/16/16 06:46 Potassium 5.1 mEq/L (3.5-4.5) H 10/16/16 05:49 BUN 34 mg/dL (8-26) H D 10/16/16 05:49 Creatinine 1.34 mg/dL (0.72-1.25) H 10/16/16 05:49 Est GFR (Non-Af Amer) 52 (> 60) L 10/16/16 05:49 Glucose 102 mg/dL (70-99) H 10/16/16 05:49 Calcium 7.7 mg/dL (8.6-10.8) L 10/16/16 05:49 Magnesium 1.5 mg/dL (1.6-2.6) L 10/15/16 08:06 Ur Specific [place] 1.006 (1.010-1.025) L 10/15/16 03:30 Urine Protein 30 mg/dL (Neg-Trace) H 10/15/16 03:30 Urine Blood Large (Negative) H 10/15/16 03:30 Urine Microscopic RBC TNTC per hpf (0-3) H 10/15/16 03:30 Ur Squamous Epith Cells Many per lpf (None-Few) H 10/15/16 03:30 - VTE Documentation of Mechanical Device: Intermittent pneumatic compression device Consult Discharge Plan - Plan Additional Instructions: RESIDENTIAL DISCHARGE INSTRUCTIONS Dr. Jessica PROCEDURE PERFORMED Reduction and fixation of left hip. Incision care -Daily dressing changes to the left hip with dry gauze and either paper tape or medipore tape. -Avoid soaking wound in water (no hot tubs, bathtubs, swimming pools). -May shower after 2 weeks. Carefully wash incision with soap and water. Gently pat it dry. Don't rub the incision, or apply creams or lotions. Sit on a shower stool when showering to keep from falling. Weight bearing status -Weightbearing as tolerated to the left lower extremity. Medications -Pain medication per the discharging medical doctor -Enteric coated aspirin 325 mg by mouth twice per day for 28 days from the date of the surgery. Other -Knee high JENNIFER hose 23 hours per day -Consult physical and occupational therapy for ambulation. -Weightbearing at tolerated to the left lower extremity. -Up to chair with assistance at least twice per day. Follow-up with Dr. Jessica at the office 2 weeks from the surgery date for a post operative evaluation. Call the office at [phone] to schedule appointment. Referrals: Misti Jennings MD [Primary Care Provider] - 11/15/16 9:20 am Tramaine Carbone DPM [Partnered Physician] - 10/29/16 10:15 am Liban Adan MD [Partnered Physician] - 02/17/17 2:15 pm
[2016-10-16] MEDS: ceFAZolin 2,000 MG in D5% in Water 100 ML IVPB SCH (23:33)
[2016-10-17 05:27] LABS: Basophils % 0.2 %; Hematocrit 24.4 % (37.5-50.1); Hemoglobin 7.7 g/dL (12.9-16.9); Immature Granulocytes % 0.5 % (0-4); Lymphocytes # 0.8 K/mcL (0.6-4.6); Lymphocytes % 7.8 %; Mean Corpuscular HGB Conc 31.6 g/dL (31.6-35.5); Mean Corpuscular Hemoglobin 27.7 pg (28.0-33.3); Mean Corpuscular Volume 87.8 fL (83.0-100.0); Mean Platelet Volume 10.4 fL (9.4-12.4); Monocytes # 0.5 K/mcL (0.0-1.3); Monocytes % 5.2 %; Neutrophils # 8.6 K/mcL (1.6-8.9); Platelet Count 227 K/mcL (140-400); Red Blood Count 2.78 M/mcL (4.19-5.50); Red Cell Distribution Width 15.8 % (11.5-14.5); Segmented Neutrophils % 86.3 %
[2016-10-17 05:57] LABS: Alanine Aminotransferase 13 Units/L (0-55); Albumin 2.2 g/dL (3.5-5.0); Albumin/Globulin Ratio 0.8 (1.1-2.2); Alkaline Phosphatase 61 Units/L (38-126); Aspartate Amino Transferase 16 Units/L (5-34); BUN/Creatinine Ratio 29 (6-26); Bilirubin,Total 0.4 mg/dL (0.2-1.2); Blood Urea Nitrogen 30 mg/dL (8-26); Calcium 8.1 mg/dL (8.6-10.8); Carbon Dioxide 26 mEq/L (19-29); Chloride 107 mEq/L (98-109); Globulin 2.9 g/dL (2.4-3.5); Glucose 114 mg/dL (70-99); Osmolality,Calculated 299 (280-300); Potassium 4.8 mEq/L (3.5-4.5); Sodium 141 mEq/L (136-145); Total Protein 5.1 g/dL (6.0-8.3); eGFR For African Americans > 60 (> 60); eGFR For Non-African Americans > 60 (> 60)
--- NOTE | 2016-10-17 07:58 | Orthopedics Progress Note ---
Date of Encounter: 10/17/16 Time of Encounter: 07:57 - Assessment and Plan (1) Closed intertrochanteric fracture of left femur Current Visit: Yes Status: Acute POD#1 - Left Hip IM Nailing 10/16/16 - DX: :Left comminuted intratrochanteric hip fracture Patient is doing well; A&O x 3 - history of mental disability - H/H 7.7/24.4. He did require a transfusion pre-op. Will follow with hospitalist. May require transfusion if H/H continues to drop. Will monitor at this time. CARE HOME DISCHARGE INSTRUCTIONS Dr. Jessica PROCEDURE PERFORMED Reduction and fixation of left hip. Incision care -Daily dressing changes to the left hip with dry gauze and either paper tape or medipore tape. -Avoid soaking wound in water (no hot tubs, bathtubs, swimming pools). -May shower after 2 weeks. Carefully wash incision with soap and water. Gently pat it dry. Don't rub the incision, or apply creams or lotions. Sit on a shower stool when showering to keep from falling. Weight bearing status -Weightbearing as tolerated to the left lower extremity. Medications -Pain medication per the discharging medical doctor -Enteric coated aspirin 325 mg by mouth twice per day for 28 days from the date of the surgery. Other -Knee high JENNIFER hose 23 hours per day -Consult physical and occupational therapy for ambulation. -Weightbearing at tolerated to the left lower extremity. -Up to chair with assistance at least twice per day. Follow-up with Dr. Jessica at the office 2 weeks from the surgery date for a post operative evaluation. Appt set and faxed. Qualifiers: Encounter type: initial encounter Qualified Code(s): S72.142A - Displaced intertrochanteric fracture of left femur, initial encounter for closed fracture Subjective Principal diagnosis: Left Hip Hemiarthroplasty Interval history: Patient is doing well, afebrile and vitals otherwise stable. H/H 7.7/24.4 Pain controlled with pain medication. Will continue DVT prophylaxis ASA and calf pumps. Calf pump only on non-operative side at the time of exam. Objective Vital signs: Vital Signs Temp Pulse Resp BP Pulse Ox 10/17/16 07:18 98.8 F 81 16 124/63 96 10/17/16 04:00 98.5 F 78 16 126/68 96 10/17/16 00:00 98.4 F 80 17 127/71 97 10/16/16 19:45 97.5 F L 73 12 131/69 95 10/16/16 18:54 97.4 F L 74 18 131/74 98 10/16/16 18:30 97.4 F L 79 16 115/74 96 10/16/16 18:03 86 16 108/71 95 10/16/16 17:31 97.7 F 89 16 119/81 97 10/16/16 17:21 92 16 129/83 98 10/16/16 17:11 96 16 127/85 97 10/16/16 17:01 97.8 F 104 16 128/88 96 10/16/16 16:51 100 16 112/76 100 10/16/16 16:41 89 16 119/77 100 10/16/16 16:31 97.6 F 89 16 126/84 100 10/16/16 13:12 97.8 F 69 20 144/74 97 10/16/16 12:57 97.6 F 64 20 124/67 94 L 10/16/16 12:10 98.3 F 64 17 122/58 94 L Intake and Output 10/16/16 10/16/16 10/17/16 15:59 23:59 07:59 Intake Total 1000 / 1000 60 / 60 200 / 200 Output Total 640 / 640 300 / 300 225 / 225 Balance 360 / 360 -240 / -240 -25 / -25 Intake: IV Fluids 1000 / 1000 100 / 100 0.9 % Sodium Chloride 1, 1000 / 1000 000 ML @ 3750 mls/hr IVC .Q16M ONE Rx#:[id number] Ancef 2,000 MG In 100 / 100 Dextrose 5% 100 ML @ 200 mls/hr IVPB Q8HR [facility] Rx#: [id number] Oral 0 / 0 60 / 60 100 / 100 Blood Product 0 / 0 Rbcs Leuko Poor As-1 0 / 0 Unit [id number] Output: Urine 200 / 200 Estimated Blood Loss 100 / 100 Catheter 640 / 640 225 / 225 Other: Meal Lunch Percent of Meal Consumed 0% LLE: Dressing: C/D/I - change daily Minimal swelling, no erythema, drainage or ecchymosis noted. [place] to Right hip noted - continue daily management and pressure relief. No calf tenderness. No warmth noted; minimal tenderness to hip. NV intact distally. Incision: clean and dry - Labs CBC & BMP: 10/17/16 04:51 10/17/16 04:51 Labs: Abnormal lab results RBC 2.78 M/mcL (4.19-5.50) L 10/17/16 04:51 Hgb 7.7 g/dL (12.9-16.9) L 10/17/16 04:51 Hct 24.4 % (37.5-50.1) L 10/17/16 04:51 MCH 27.7 pg (28.0-33.3) L 10/17/16 04:51 RDW 15.8 % (11.5-14.5) H 10/17/16 04:51 Potassium 4.8 mEq/L (3.5-4.5) H 10/17/16 04:51 BUN 30 mg/dL (8-26) H 10/17/16 04:51 BUN/Creatinine Ratio 29 (6-26) H 10/17/16 04:51 Glucose 114 mg/dL (70-99) H 10/17/16 04:51 Calcium 8.1 mg/dL (8.6-10.8) L 10/17/16 04:51 Magnesium 1.5 mg/dL (1.6-2.6) L 10/15/16 08:06 Serum Total Protein 5.1 g/dL (6.0-8.3) L 10/17/16 04:51 Albumin 2.2 g/dL (3.5-5.0) L 10/17/16 04:51 Albumin/Globulin Ratio 0.8 (1.1-2.2) L 10/17/16 04:51 Ur Specific [place] 1.006 (1.010-1.025) L 10/15/16 03:30 Urine Protein 30 mg/dL (Neg-Trace) H 10/15/16 03:30 Urine Blood Large (Negative) H 10/15/16 03:30 Urine Microscopic RBC TNTC per hpf (0-3) H 10/15/16 03:30 Ur Squamous Epith Cells Many per lpf (None-Few) H 10/15/16 03:30 - VTE Documentation of Mechanical Device: Intermittent pneumatic compression device Consult Discharge Plan - Plan Additional Instructions: CARE HOME DISCHARGE INSTRUCTIONS Dr. Jessica PROCEDURE PERFORMED Reduction and fixation of left hip. Incision care -Daily dressing changes to the left hip with dry gauze and either paper tape or medipore tape. -Avoid soaking wound in water (no hot tubs, bathtubs, swimming pools). -May shower after 2 weeks. Carefully wash incision with soap and water. Gently pat it dry. Don't rub the incision, or apply creams or lotions. Sit on a shower stool when showering to keep from falling. Weight bearing status -Weightbearing as tolerated to the left lower extremity. Medications -Pain medication per the discharging medical doctor -Enteric coated aspirin 325 mg by mouth twice per day for 28 days from the date of the surgery. Other -Knee high JENNIFER hose 23 hours per day -Consult physical and occupational therapy for ambulation. -Weightbearing at tolerated to the left lower extremity. -Up to chair with assistance at least twice per day. Follow-up with Dr. Jessica at the office 2 weeks from the surgery date for a post operative evaluation. Call the office at [phone] to schedule appointment. Referrals: Misti Jennings MD [Primary Care Provider] - 11/15/16 9:20 am Tramaine Carbone DPM [Partnered Physician] - 10/29/16 10:15 am Liban Adan MD [Partnered Physician] - 02/17/17 2:15 pm
[2016-10-17] MEDS: Finasteride 5 MG TABLET PO SCH (08:18)
[2016-10-17] MEDS: Triamcinolone Acet 0.1% CRM 15 GM TUBE TP SCH ×2 (08:18→21:00)
[2016-10-17] MEDS: ceFAZolin 2,000 MG in D5% in Water 100 ML IVPB SCH (08:18)
--- NOTE | 2016-10-17 08:22 | Internal Med Progress Note ---
Date of Encounter: 10/17/16 Time of Encounter: 08:20 - Assessment and plan (1) Closed intertrochanteric fracture of left femur Current Visit: Yes Status: Acute Assessment and plan: POD 1 Continue po meds, start ASA Qualifiers: Encounter type: initial encounter Qualified Code(s): S72.142A - Displaced intertrochanteric fracture of left femur, initial encounter for closed fracture (2) CKD (chronic kidney disease) stage 3, GFR 30-59 ml/min Current Visit: Yes Status: Chronic Assessment and plan: Almost back to baseline, encourage liberal fluid intake (3) COPD (chronic obstructive pulmonary disease) Current Visit: Yes Status: Chronic Assessment and plan: No wheezing Duo nebs prn Monitor resp status Qualifiers: COPD type: unspecified COPD Qualified Code(s): J44.9 - Chronic obstructive pulmonary disease, unspecified (4) Dementia arising in the senium and presenium Current Visit: Yes Status: Chronic Assessment and plan: Continue home meds (5) HLD (hyperlipidemia) Current Visit: Yes Status: Chronic Assessment and plan: COntinue Zocor Qualifiers: Hyperlipidemia type: unspecified Qualified Code(s): E78.5 - Hyperlipidemia , unspecified (6) HTN (hypertension) Current Visit: Yes Status: Chronic Assessment and plan: Controlled without medications Qualifiers: Hypertension type: essential hypertension Qualified Code(s): I10 - Essential (primary) hypertension (7) Mental retardation Current Visit: Yes Status: Chronic (8) Plaque psoriasis Current Visit: Yes Status: Chronic (9) Anxiety associated with depression Current Visit: Yes Status: Chronic (10) Acute on chronic renal insufficiency Current Visit: Yes Status: Acute (11) Anemia Current Visit: Yes Status: Acute Assessment and plan: Suspected due to fracture S/p one more unit of blood Monitor hb Qualifiers: Anemia type: unspecified type Qualified Code(s): D64.9 - Anemia, unspecified (12) Hyperkalemia Current Visit: Yes Status: Acute - Subjective Interval history: 71 Y/O M PMH of MRDD, COPD, CKD III, Anxiety, HLD, Dementia Patient is admitted and being managed for R intertrochnateric fracture secondary to fall Patient is seen a bedside with RN He denies any new complains, he is able to say a few words, denied pain, eating breakfast POD1 MATHEW and Hyperkalemia is improving He had blood loss anemia yesterday, s/p 1 unit RBCs Will transfuse another unit today - Constitutional Vitals: Temp Pulse Resp BP Pulse Ox 98.8 F 81 16 124/63 96 10/17/16 07:18 10/17/16 07:18 10/17/16 07:18 10/17/16 07:18 10/17/16 07:18 General appearance: Present: cachectic, A&O X 1, no acute distress, underweight. Absent: answers questions appropriately - Head Head exam: Present: atraumatic, normocephalic - Eye Eye exam: Present: PERRL, conjuntiva pink, sclera anicteric Pupils: Present: PERRL - Neck Neck exam general surgery: Present: supple, trachea midline. Absent: lymphadenopathy - Respiratory Respiratory exam: Present: CTAB. Absent: accessory muscle use, rales, rhonchi, wheezes Additional comments: Barrel chest - Cardiovascular Cardiovascular exam: Present: RRR, +S1, +S2. Absent: diastolic murmur, gallop, rubs, systolic murmur - GI/Abdominal GI/Abdominal exam: Present: normal bowel sounds, no peritoneal signs. Absent: tenderness Additional comments: Scaphoid, soft, not tender, no palpable masses - Extremities Exam Additional comments: Dressing clean and dry, no edema, extremities well perfused - Neurological Exam Neurological exam: Present: alert, CN II-XII intact, no focal deficits. Absent : oriented X3, pronater drift, facial droop, speech deficit - Skin Skin exam: Present: dry Internal Medicine: Result - Labs CBC & Chem 7: 10/17/16 04:51 10/17/16 04:51 Labs: Short CBC 10/16/16 10/16/16 10/17/16 Range/Units 06:46 17:16 04:51 WBC 10.0 10.0 (4.3-11.1) K/mcL Hgb 7.5 L D 8.5 L 7.7 L (12.9-16.9) g/dL Hct 24.1 L 26.6 L 24.4 L (37.5-50.1) % Plt Count 270 227 (140-400) K/mcL Neutrophils # 8.0 8.6 (1.6-8.9) K/mcL BMP 10/17/16 04:51 Sodium 141 Potassium 4.8 H Chloride 107 Carbon Dioxide 26 BUN 30 H Creatinine 1.03 Glucose 114 H Calcium 8.1 L Liver Function 10/17/16 Range/Units 04:51 Total Bilirubin 0.4 (0.2-1.2) mg/dL AST 16 (5-34) Units/L ALT 13 (0-55) Units/L Alkaline Phosphatase 61 (38-126) Units/L Albumin 2.2 L (3.5-5.0) g/dL - ABG Interpretation ABG results: PT/INR, D-dimer PT 11.6 Seconds (9.4-12.1) 10/15/16 08:06 - Impressions Impressions Fluoroscopy 10/16/16 15:20 IMPRESSION: Intraprocedural fluoroscopic spot images as above. See separate procedure report for more information. D/ / 10/16/2016 16:14:58 Jones Corrigan MD / nile Interpreting Provider: Jones Corrigan MD Hip X-Ray 10/16/16 15:20 IMPRESSION: Intraprocedural fluoroscopic spot images as above. See separate procedure report for more information. D/ / 10/16/2016 16:14:58 Jones Corrigan MD / nile Interpreting Provider: Jones Corrigan MD - VTE Documentation of Mechanical Device: Intermittent pneumatic compression device Consult Discharge Plan - Plan Additional Instructions: ALF DISCHARGE INSTRUCTIONS Dr. Jessica PROCEDURE PERFORMED Reduction and fixation of left hip. Incision care -Daily dressing changes to the left hip with dry gauze and either paper tape or medipore tape. -Avoid soaking wound in water (no hot tubs, bathtubs, swimming pools). -May shower after 2 weeks. Carefully wash incision with soap and water. Gently pat it dry. Don't rub the incision, or apply creams or lotions. Sit on a shower stool when showering to keep from falling. Weight bearing status -Weightbearing as tolerated to the left lower extremity. Medications -Pain medication per the discharging medical doctor -Enteric coated aspirin 325 mg by mouth twice per day for 28 days from the date of the surgery. Other -Knee high JENNIFER hose 23 hours per day -Consult physical and occupational therapy for ambulation. -Weightbearing at tolerated to the left lower extremity. -Up to chair with assistance at least twice per day. Follow-up with Dr. Jessica at the office 2 weeks from the surgery date for a post operative evaluation. Call the office at [phone] to schedule appointment. Referrals: Misti Jennigns MD [Primary Care Provider] - 11/15/16 9:20 am Tramaine Carbone DPM [Partnered Physician] - 10/29/16 10:15 am Liban Adan MD [Partnered Physician] - 02/17/17 2:15 pm
[2016-10-17] MEDS ORDERED: Aspirin Enteric Coated 325 MG Tablet PO SCH (09:00)
[2016-10-17] MEDS: Aspirin Enteric Coated 325 MG Tablet PO SCH (20:51)
[2016-10-18 04:47] LABS: Basophils % 0.1 %; Eosinophils # 0.1 K/mcL (0.0-0.6); Eosinophils % 0.7 %; Hematocrit 27.6 % (37.5-50.1); Hemoglobin 8.9 g/dL (12.9-16.9); Immature Granulocytes % 0.4 % (0-4); Lymphocytes % 11.4 %; Mean Corpuscular HGB Conc 32.2 g/dL (31.6-35.5); Mean Corpuscular Volume 86.8 fL (83.0-100.0); Mean Platelet Volume 10.2 fL (9.4-12.4); Monocytes # 0.4 K/mcL (0.0-1.3); Monocytes % 4.7 %; Neutrophils # 7.1 K/mcL (1.6-8.9); Platelet Count 239 K/mcL (140-400); Red Blood Count 3.18 M/mcL (4.19-5.50); Segmented Neutrophils % 82.7 %
[2016-10-18 05:08] LABS: Alanine Aminotransferase 7 Units/L (0-55); Albumin 2.2 g/dL (3.5-5.0); Albumin/Globulin Ratio 0.6 (1.1-2.2); Alkaline Phosphatase 82 Units/L (38-126); Aspartate Amino Transferase 18 Units/L (5-34); BUN/Creatinine Ratio 31 (6-26); Bilirubin,Total 0.6 mg/dL (0.2-1.2); Blood Urea Nitrogen 29 mg/dL (8-26); Calcium 7.9 mg/dL (8.6-10.8); Carbon Dioxide 28 mEq/L (19-29); Chloride 105 mEq/L (98-109); Globulin 3.4 g/dL (2.4-3.5); Glucose 90 mg/dL (70-99); Osmolality,Calculated 295 (280-300); Potassium 4.5 mEq/L (3.5-4.5); Sodium 140 mEq/L (136-145); Total Protein 5.6 g/dL (6.0-8.3); eGFR For African Americans > 60 (> 60); eGFR For Non-African Americans > 60 (> 60)
--- NOTE | 2016-10-18 08:34 | Physician Discharge Referral ---
[facility]Care Referral Info [facility] Provider in Charge after Transfer: PCP Institutional Level of Care: Skilled - Diagnosis (1) Closed intertrochanteric fracture of left femur Priority: Primary Status: Acute (2) CKD (chronic kidney disease) stage 3, GFR 30-59 ml/min Priority: Secondary Status: Chronic (3) COPD (chronic obstructive pulmonary disease) Priority: Secondary Status: Chronic (4) Dementia arising in the senium and presenium Priority: Secondary Status: Chronic (5) HLD (hyperlipidemia) Priority: Secondary Status: Chronic (6) HTN (hypertension) Priority: Secondary Status: Chronic (7) Mental retardation Priority: Secondary Status: Chronic (8) Plaque psoriasis Priority: Secondary Status: Chronic (9) Anxiety associated with depression Status: Chronic (10) Acute on chronic renal insufficiency Priority: Secondary Status: Resolved (11) Anemia Priority: Primary Status: Acute (12) Hyperkalemia Priority: Primary Status: Resolved Prognosis: Fair Aware of Diagnosis: Patient, Family Aware of Prognosis: Patient, Family - Transfer Medications Prescriptions: OxyCODONE Immed Rel [Roxicodone 5 MG] 10 mg PO Q6HR PRN #30 tablet PRN Reason: Moderate Pain (4-6) Home Medications: Citalopram [CeleXA] 20 mg PO DAILY 09/30/16 [History] Finasteride [Proscar] 5 mg PO DAILY 09/30/16 [History] Omeprazole [PriLOSEC] 40 mg PO DAILY 09/30/16 [History] Pravastatin Sodium [Pravachol] 20 mg PO DAILY 09/30/16 [History] Sennosides/Docusate Sodium [Senna Plus] 1 each PO BID PRN 09/30/16 [History] Tamsulosin [Flomax] 0.4 mg PO DAILY 09/30/16 [History] Triamcinolone Acet 0.1% CRM [Kenalog] 1 appl TP BID 09/30/16 [History] Mirtazapine 15 mg PO HS 10/15/16 [History] OLANZapine [Olanzapine] 10 mg PO DAILY 10/15/16 [History] Acetaminophen [Tylenol] 650 mg PO Q6HR PRN #0 tablet 10/18/16 [Rx] Aspirin Enteric Coated [Aspirin EC] 325 mg PO BID tablet. 10/18/16 [Rx] Citalopram [CeleXA] 20 mg PO DAILY tablet 10/18/16 [Rx] Docusate [Colace] 100 mg PO BID PRN #0 capsule 10/18/16 [Rx] OxyCODONE Immed Rel [Roxicodone 5 MG] 10 mg PO Q6HR PRN #30 tablet 10/18/16 [Rx] Allergies/Adverse Reactions: Allergies ciprofloxacin Allergy (Verified 08/27/15 19:42) Rash fluconazole Allergy (Verified 08/27/15 19:42) Rash - Respiratory Orders Oxygen / L per min (PRN) Smoking Cessation: Smoking cessation has been advised. For more information, call the [place] Tobacco Quit Line at 0-630-PVSL-NOW. - Advance Directives Living Will: No Power of Biology Adjunct Instructor: No Code Status: Full Code - Rehabiliation Orders Other: As per Physical therapy - Treatments List/Other: Incision care -Daily dressing changes to the left hip with dry gauze and either paper tape or medipore tape. -Avoid soaking wound in water (no hot tubs, bathtubs, swimming pools). -May shower after 2 weeks. Carefully wash incision with soap and water. Gently pat it dry. Don't rub the incision, or apply creams or lotions. Sit on a shower stool when showering to keep from falling. Weight bearing status -Weightbearing as tolerated to the left lower extremity. -Up to chair with assistance at least twice per day. Medications -Acetaminophen 650mg q6hr prn for mild pain -Oxycodone 10mg q6hr prn for moderate pain -Enteric coated aspirin 325 mg by mouth twice per day for 28 days from the date of the surgery for DVT prophylaxis. - Diet Orders Mechanical Soft (Mechanically altered diet, ground meat, dietary supplement) CERTIFICATION: I certify that the transfer of the above named patient to an Extended Care Facility is necessary for the continuing treatment of the diagnosis listed. The above information is true and accurate reflection of patient's current condition. Confidential - Redisclosure prohibited without a patient's written consent.
--- NOTE | 2016-10-18 08:38 | Discharge Summary ---
Date of Encounter: 10/18/16 Time of Encounter: 08:36 - Discharge Diagnosis (1) Closed intertrochanteric fracture of left femur Priority: Primary Status: Acute Qualifiers: Encounter type: initial encounter Qualified Code(s): S72.142A - Displaced intertrochanteric fracture of left femur, initial encounter for closed fracture (2) CKD (chronic kidney disease) stage 3, GFR 30-59 ml/min Priority: Secondary Status: Chronic (3) COPD (chronic obstructive pulmonary disease) Priority: Secondary Status: Chronic Qualifiers: COPD type: unspecified COPD Qualified Code(s): J44.9 - Chronic obstructive pulmonary disease, unspecified (4) Dementia arising in the senium and presenium Priority: Secondary Status: Chronic (5) HLD (hyperlipidemia) Priority: Secondary Status: Chronic Qualifiers: Hyperlipidemia type: unspecified Qualified Code(s): E78.5 - Hyperlipidemia , unspecified (6) HTN (hypertension) Priority: Secondary Status: Chronic Qualifiers: Hypertension type: essential hypertension Qualified Code(s): I10 - Essential (primary) hypertension (7) Mental retardation Priority: Secondary Status: Chronic (8) Plaque psoriasis Priority: Secondary Status: Chronic (9) Anxiety associated with depression Priority: Secondary Status: Chronic (10) Acute on chronic renal insufficiency Priority: Secondary Status: Resolved (11) Anemia Priority: Primary Status: Acute Qualifiers: Anemia type: unspecified type Qualified Code(s): D64.9 - Anemia, unspecified (12) Hyperkalemia Priority: Primary Status: Resolved - Discharge Medications Prescriptions: OxyCODONE Immed Rel [Roxicodone 5 MG] 10 mg PO Q6HR PRN #30 tablet PRN Reason: Moderate Pain (4-6) Home Medications: Citalopram [CeleXA] 20 mg PO DAILY 09/30/16 [History] Finasteride [Proscar] 5 mg PO DAILY 09/30/16 [History] Omeprazole [PriLOSEC] 40 mg PO DAILY 09/30/16 [History] Pravastatin Sodium [Pravachol] 20 mg PO DAILY 09/30/16 [History] Sennosides/Docusate Sodium [Senna Plus] 1 each PO BID PRN 09/30/16 [History] Tamsulosin [Flomax] 0.4 mg PO DAILY 09/30/16 [History] Triamcinolone Acet 0.1% CRM [Kenalog] 1 appl TP BID 09/30/16 [History] Mirtazapine 15 mg PO HS 10/15/16 [History] OLANZapine [Olanzapine] 10 mg PO DAILY 10/15/16 [History] Acetaminophen [Tylenol] 650 mg PO Q6HR PRN #0 tablet 10/18/16 [Rx] Aspirin Enteric Coated [Aspirin EC] 325 mg PO BID tablet. 10/18/16 [Rx] Citalopram [CeleXA] 20 mg PO DAILY tablet 10/18/16 [Rx] Docusate [Colace] 100 mg PO BID PRN #0 capsule 10/18/16 [Rx] OxyCODONE Immed Rel [Roxicodone 5 MG] 10 mg PO Q6HR PRN #30 tablet 10/18/16 [Rx] Allergies/Adverse Reactions: Allergies ciprofloxacin Allergy (Verified 08/27/15 19:42) Rash fluconazole Allergy (Verified 08/27/15 19:42) Rash Date of admission: 10/15/16 12:42 Primary care physician: Misti Jennings MD Consults: 10/16/16 16:30 Consult to Occupational Therapy [CONS] Routine Comment: Evaluate, develop and implement POC Consult to Orthopedic Navigator [CONS] [CONS] Routine Consult to Physical Therapy [CONS] Routine Comment: Evaluate, develop and implement POC Consult to Supervisor [employer] [CONS] Routine Reason for SW Consult: post -op hip fracture RT Post Op Consult [CONS] Routine Discharging clinician: Mata Macedo Anticipated date of discharge: 10/18/16 - Patient Status Disposition: Transfer SNF Condition: Fair Overall status at discharge: patient is progressing back to baseline - Discharge Instructions Follow Up With: Misti Jennings MD [Primary Care Provider] - 11/15/16 9:20 am Tramaine Carbone DPM [Partnered Physician] - 10/29/16 10:15 am Liban Adan MD [Partnered Physician] - 02/17/17 2:15 pm Additional Instructions: DETENTION DISCHARGE INSTRUCTIONS Dr. Jessica PROCEDURE PERFORMED Reduction and fixation of left hip. Incision care -Daily dressing changes to the left hip with dry gauze and either paper tape or medipore tape. -Avoid soaking wound in water (no hot tubs, bathtubs, swimming pools). -May shower after 2 weeks. Carefully wash incision with soap and water. Gently pat it dry. Don't rub the incision, or apply creams or lotions. Sit on a shower stool when showering to keep from falling. Weight bearing status -Weightbearing as tolerated to the left lower extremity. Medications -Pain medication per the discharging medical doctor -Enteric coated aspirin 325 mg by mouth twice per day for 28 days from the date of the surgery. Other -Knee high JENNIFER hose 23 hours per day -Consult physical and occupational therapy for ambulation. -Weightbearing at tolerated to the left lower extremity. -Up to chair with assistance at least twice per day. Follow-up with Dr. Jessica at the office 2 weeks from the surgery date for a post operative evaluation. Call the office at [phone] to schedule appointment. - Diet and Activity Activity: as per physical therapy Diet: other (Mechanically altered diet, ground meat) Interval History: See below Hospital course: Mr. Panchal 71 Y/O M PMH of MRDD, COPD, CKD III, Anxiety, HLD, Dementia Patient is admitted and being managed for R intertrochnateric fracture secondary to fall He is POD 2 s/p Left Hip IM Nailing 10/16/16 Patient is seen at bedside , sitting out of bed to chair Denied new complains Physical exam is as documented Hospital stay was complicated by hyperkalemia and MATHEW which has since resolved He also had acute blood loss anemia, s/p 2 units RBCS, Hb is stable at ~8. He is stable for discharge to ECF/SNF Immunization is up to date - Time Spent with Patient Total time spent providing and/or coordinating discharge services: Greater than 30 minutes (40 minutes spent on face to face with patient, chart review, prescriptions and documentation) - Constitutional Vitals: Temp Pulse Resp BP Pulse Ox 98.2 F 76 16 150/70 94 L 10/18/16 06:48 10/18/16 06:48 10/18/16 06:48 10/18/16 07:03 10/18/16 06:48 General appearance: Present: cachectic, A&O X 1, pleasant, no acute distress, underweight. Absent: answers questions appropriately - Head Head exam: Present: atraumatic, normocephalic - Eye Eye exam: Present: PERRL, conjuntiva pink, sclera anicteric Pupils: Present: PERRL - Neck Neck exam general surgery: Present: supple, trachea midline. Absent: lymphadenopathy - Respiratory Respiratory exam: Present: CTAB Additional comments: Barrel shaped chest - Cardiovascular Cardiovascular exam: Present: RRR, +S1, +S2. Absent: diastolic murmur, gallop, rubs, systolic murmur - GI/Abdominal GI/Abdominal exam: Present: normal bowel sounds, soft, no peritoneal signs. Absent: distended, tenderness Additional comments: Scaphoid not tender - Extremities Exam Extremities exam: Present: warm, radial pulses palpable and symetrical. Absent : calf tenderness, cyanotic, pedal edema - Neurological Exam Neurological exam: Present: alert, CN II-XII intact, no focal deficits. Absent : oriented X3, pronater drift, facial droop, speech deficit - Skin Skin exam: Present: dry - VTE Documentation of Mechanical Device: Intermittent pneumatic compression device
[2016-10-18] MEDS: Triamcinolone Acet 0.1% CRM 15 GM TUBE TP SCH (09:58)
[2016-10-18] MEDS: Finasteride 5 MG TABLET PO SCH (09:58)
[2016-10-18] MEDS: Aspirin Enteric Coated 325 MG Tablet PO SCH (09:58)
--- NOTE | 2016-10-18 09:58 | Orthopedics Progress Note ---
Date of Encounter: 10/18/16 Time of Encounter: 12:00 - Assessment and Plan (1) Closed intertrochanteric fracture of left femur Current Visit: Yes Status: Acute POD#2 - Left Hip IM Nailing 10/16/16 - DX: :Left comminuted intratrochanteric hip fracture Patient is doing well; A&O x 3 - history of mental disability - H/H improved. He did require a transfusion pre-op. Will follow with hospitalist. Will monitor at this time. SHELTER DISCHARGE INSTRUCTIONS Dr. Jessica PROCEDURE PERFORMED Reduction and fixation of left hip. Incision care -Daily dressing changes to the left hip with dry gauze and either paper tape or medipore tape. -Avoid soaking wound in water (no hot tubs, bathtubs, swimming pools). -May shower after 2 weeks. Carefully wash incision with soap and water. Gently pat it dry. Don't rub the incision, or apply creams or lotions. Sit on a shower stool when showering to keep from falling. Weight bearing status -Weightbearing as tolerated to the left lower extremity. Medications -Pain medication per the discharging medical doctor -Enteric coated aspirin 325 mg by mouth twice per day for 28 days from the date of the surgery. Other -Knee high JENNIFER hose 23 hours per day -Consult physical and occupational therapy for ambulation. -Weightbearing at tolerated to the left lower extremity. -Up to chair with assistance at least twice per day. Follow-up with Dr. Jessica at the office 2 weeks from the surgery date for a post operative evaluation. Appt set and faxed. Qualifiers: Encounter type: initial encounter Qualified Code(s): S72.142A - Displaced intertrochanteric fracture of left femur, initial encounter for closed fracture Subjective Principal diagnosis: Left Hip Hemiarthroplasty Interval history: Patient is doing well, afebrile and vitals otherwise stable. H/H improved Pain controlled with pain medication. Will continue DVT prophylaxis ASA and calf pumps. Calf pump continued Objective Vital signs: Vital Signs Temp Pulse Resp BP Pulse Ox 10/18/16 07:03 150/70 10/18/16 06:48 98.2 F 76 16 192/92 94 L 10/18/16 03:58 97.8 F 86 17 165/74 92 L 10/18/16 00:00 97.9 F 85 17 161/78 95 10/17/16 20:47 97.4 F L 78 16 142/95 97 10/17/16 14:45 97.6 F 62 18 142/66 100 10/17/16 11:40 97.6 F 77 16 94/71 95 10/17/16 11:00 97.5 F L 80 16 97/63 99 Intake and Output 10/17/16 10/18/16 10/18/16 23:59 07:59 15:59 Intake Total 200 / 200 Balance 200 / 200 Intake: Oral 200 / 200 Other: # Voids 1 # Urine Diapers 1 Incision: clean and dry - Labs CBC & BMP: 10/18/16 04:18 10/18/16 04:18 Labs: Abnormal lab results RBC 3.18 M/mcL (4.19-5.50) L 10/18/16 04:18 Hgb 8.9 g/dL (12.9-16.9) L 10/18/16 04:18 Hct 27.6 % (37.5-50.1) L 10/18/16 04:18 RDW 16.0 % (11.5-14.5) H 10/18/16 04:18 BUN 29 mg/dL (8-26) H 10/18/16 04:18 BUN/Creatinine Ratio 31 (6-26) H 10/18/16 04:18 Calcium 7.9 mg/dL (8.6-10.8) L 10/18/16 04:18 Magnesium 1.5 mg/dL (1.6-2.6) L 10/15/16 08:06 Serum Total Protein 5.6 g/dL (6.0-8.3) L 10/18/16 04:18 Albumin 2.2 g/dL (3.5-5.0) L 10/18/16 04:18 Albumin/Globulin Ratio 0.6 (1.1-2.2) L 10/18/16 04:18 Ur Specific [place] 1.006 (1.010-1.025) L 10/15/16 03:30 Urine Protein 30 mg/dL (Neg-Trace) H 10/15/16 03:30 Urine Blood Large (Negative) H 10/15/16 03:30 Urine Microscopic RBC TNTC per hpf (0-3) H 10/15/16 03:30 Ur Squamous Epith Cells Many per lpf (None-Few) H 10/15/16 03:30 - VTE Documentation of Mechanical Device: Intermittent pneumatic compression device Consult Discharge Plan - Plan Additional Instructions: SHELTER DISCHARGE INSTRUCTIONS Dr. Jessica PROCEDURE PERFORMED Reduction and fixation of left hip. Incision care -Daily dressing changes to the left hip with dry gauze and either paper tape or medipore tape. -Avoid soaking wound in water (no hot tubs, bathtubs, swimming pools). -May shower after 2 weeks. Carefully wash incision with soap and water. Gently pat it dry. Don't rub the incision, or apply creams or lotions. Sit on a shower stool when showering to keep from falling. Weight bearing status -Weightbearing as tolerated to the left lower extremity. Medications -Pain medication per the discharging medical doctor -Enteric coated aspirin 325 mg by mouth twice per day for 28 days from the date of the surgery. Other -Knee high JENNIFER hose 23 hours per day -Consult physical and occupational therapy for ambulation. -Weightbearing at tolerated to the left lower extremity. -Up to chair with assistance at least twice per day. Follow-up with Dr. Jessica at the office 2 weeks from the surgery date for a post operative evaluation. Call the office at [phone] to schedule appointment. Referrals: Misti Jennings MD [Primary Care Provider] - 11/15/16 9:20 am Tramaine Carbone DPM [Partnered Physician] - 10/29/16 10:15 am Liban Adan MD [Partnered Physician] - 02/17/17 2:15 pm Prescriptions: OxyCODONE Immed Rel [Roxicodone 5 MG] 10 mg PO Q6HR PRN #30 tablet PRN Reason: Moderate Pain (4-6)
[2016-10-18 11:08] VITALS: BP 102/63
== END 2016-10-18 13:35 | DRG 481 ==
LOC: 3NENU 00:35 → EMEROO 00:35 → SUATTDRO 03:21 → 3NENU 04:37
PROVIDERS: ADMIT Internal Medicine; ATTEND Internal Medicine

== ENCOUNTER 2017-12-10 10:02 | Inpatient (IN) ==
--- NOTE | 2017-12-10 10:23 | Emergency Department Note ---
Disposition Clinical Impression: Anemia Qualifiers: Anemia type: unspecified type Qualified Code(s): D64.9 - Anemia, unspecified GI bleeding Qualifiers: GI bleed type/associated pathology: unspecified gastrointestinal hemorrhage type Qualified Code(s): K92.2 - Gastrointestinal hemorrhage, unspecified Pneumonia Qualifiers: Pneumonia type: due to unspecified organism Laterality: unspecified laterality Lung location: lower lobe of lung Qualified Code(s): J18.1 - Lobar pneumonia, unspecified organism Disposition: Admitted As Inpatient Condition: Fair General Adult HPI - General Chief complaint: ED Recheck/Abnormal Lab/Rx Stated complaint: abnormal lab Time Seen by Provider: 12/10/17 10:10 Source: other Mode of arrival: EMS Nursing Notes Reviewed: Yes Vital Signs Reviewed: Yes - History of Present Illness HPI Narrative: 72 year old male with history of dementia sent from longterm for evaluate abnormal labs. Per nursing to nursing report, pt had CBC this morning and found out hemoglobin level 6.7. No bloody or black stool reported. In room, pt has dry cough. Onset (ago): unknown Location: abdomen Consistency: constant Treatments Prior to Arrival: none - Related Data Home Medications Medication Instructions Recorded Confirmed Finasteride [Proscar] 5 mg PO DAILY 09/30/16 12/10/17 Acetaminophen [Non-Aspirin] 650 mg PO Q6H PRN 12/10/17 12/10/17 Amoxicillin/Clavulanate [Augmentin] 875 mg PO BIDWM 12/10/17 12/10/17 Ciclopirox Olamine [Ciclodan] 1 appl TP BID 12/10/17 12/10/17 Citalopram [CeleXA] 10 mg PO DAILY 12/10/17 12/10/17 Docusate [Colace] 100 mg PO BID 12/10/17 12/10/17 Docusate [Colace] 100 mg PO DAILY 12/10/17 12/10/17 Famotidine [Pepcid] 10 mg PO DAILY 12/10/17 12/10/17 Lisinopril [Zestril] 5 mg PO DAILY 12/10/17 12/10/17 Loperamide [Imodium] 2 mg PO QID PRN 12/10/17 12/10/17 Megestrol Acetate [Megace] 10 ml PO DAILY 12/10/17 12/10/17 Oxycodone HCl 10 mg PO Q6H PRN 12/10/17 12/10/17 Polyethylene Glycol 3350 [MiraLAX] 17 gm PO DAILY 12/10/17 12/10/17 Pravastatin Sodium [Pravachol] 10 mg PO DAILY 12/10/17 12/10/17 Sennosides/Docusate Sodium [Colace 1 tab PO DAILY PRN 12/10/17 12/10/17 2-in-1 Tablet] Tamsulosin HCl [Flomax] 0.4 mg PO DAILY 12/10/17 12/10/17 Allergies Allergy/AdvReac Type Severity Reaction Status Date / Time ciprofloxacin Allergy Rash Verified 12/10/17 10:56 fluconazole Allergy Rash Verified 12/10/17 10:56 Constitutional: Denies: fever, chills Eyes: Denies: eye pain, eye discharge, vision change ENT ED: Denies: ear pain, throat pain, dental pain Cardiovascular: Denies: chest pain, palpitations, dyspnea on exertion Respiratory: Reports: cough. Denies: dyspnea, wheezes Gastrointestinal: Denies: abdominal pain, nausea, vomiting Genitourinary: Denies: urgency, dysuria, frequency Musculoskeletal: Denies: back pain, neck pain, joint swelling Integumentary: Denies: rash, abrasion, lesions Neurological: Denies: headache, weakness Psychiatric: Denies: anxiety, depression, suicidal thoughts Endocrine: Denies: fatigue, heat or cold intolerance Hematological/Lymphatic: Denies: easy bleeding, easy bruising Allergic/Immunologic: Denies: facial swelling, urticaria Past Medical History - Past Medical History Medical history: Reports: arthritis, COPD, dementia, hyperlipidemia, hypertension, renal disease, other Surgical history: Reports: cataract, other (Craniotomy. EGD. Colonoscopy.) Psychiatric history: Reports: anxiety - Social History Smoking Status: Former smoker Smokeless Tobacco Status: No Alcohol use: Reports: none Drug use: Reports: none Physical Exam - General General appearance: alert, other (not oriented due to Dementia status, generalized weakness) - Head Head exam: atraumatic, normal inspection - Eye Eye exam: Present: normal appearance. Absent: scleral icterus, conjunctival injection - ENT ENT exam: normal exam, normal external ear exam - Neck Neck exam: Present: normal inspection, full ROM, trachea midline. Absent: tenderness - Chest Chest inspection: Present: normal inspection, symmetric chest wall rise. Absent : tenderness - Respiratory Respiratory exam: Present: other (right side lower lung rales noted) - Cardiovascular Cardiovascular exam: Present: regular rate, normal rhythm - Abdominal Exam Abdominal exam: Present: soft, Non-Tender - Rectal Exam Propagation Manager present during exam: Yes Rectal exam: Present: heme (+) stool - Extremities Exam Extremities exam: Present: normal inspection - Back Exam Back exam: Present: normal inspection - Neurological Exam Neurological exam: Present: alert, CN II-XII intact - Psychiatric Psychiatric exam: Present: normal affect, other - Skin Skin exam: Present: warm, dry, other (pale) Course Vital Signs Temperature 98.0 F 12/10/17 10:21 Pulse Rate 103 12/10/17 10:21 Respiratory Rate 18 12/10/17 10:21 Blood Pressure 136/75 12/10/17 10:21 O2 Sat by Pulse Oximetry 93 12/10/17 10:21 Temperature 98.0 F 12/10/17 10:21 Pulse Rate 85 12/10/17 11:16 Respiratory Rate 18 12/10/17 11:16 Blood Pressure 140/78 12/10/17 11:16 O2 Sat by Pulse Oximetry 95 12/10/17 11:16 Oxygen Delivery Oxygen Delivery Room Air Medical Decision Making - MDM Narrative Medical decision making narrative: 72 year old male with history of Dementia, hypertension, anemia presents for evaluation of abnormal labs. Pt is a resident of longterm. Per nursing to nursing report, pt was found hemoglobin level 6.7 this morning, which decreasing from 8.5 on 12/05. Physical exam: pt seems generalized weakness, pale skin, rales noted in right lower lung, rectal exam: Guiac positive. Labs: White cell 15, hemoglobin 6.7, ESR 98. Chest xray: possible pneumonia. Impression:1. Anemia: pt needs blood transfusion . 2 GI bleeding, active, needs further evaluation 3. Pneumonia facility acquired , needs IV antibiotics , antibiotics started in ER. Plan: pt will be admit to hospital. Dr. Orellana saw the patient and agrees the above plan - Lab Data Lab results reviewed: Yes I reviewed the patient's lab results. Result diagrams: 12/10/17 11:09 Lab Results 12/10/17 12/10/17 12/10/17 Range/Units 10:31 11:09 11:09 WBC 15.5 H (4.3-11.1) K/mcL RBC 2.82 L (4.19-5.50) M/mcL Hgb 6.6 L (12.9-16.9) g/dL Hct 22.5 L (37.5-50.1) % MCV 79.8 L (83.0-100.0) fL MCH 23.4 L (28.0-33.3) pg MCHC 29.3 L (31.6-35.5) g/dL RDW 15.9 H (11.5-14.5) % Plt Count 519 H (140-400) K/mcL MPV 8.9 L (9.4-12.4) fL Immature Gran % 1.0 (0-4) % Seg Neutrophils % 81.7 % Lymphocytes % 10.7 % Monocytes % 5.3 % Eosinophils % 1.0 % Basophils % 0.3 % Neutrophils # 12.7 H (1.6-8.9) K/mcL Lymphocytes # 1.7 (0.6-4.6) K/mcL Monocytes # 0.8 (0.0-1.3) K/mcL Eosinophils # 0.2 (0.0-0.6) K/mcL Basophils # 0.0 (0.0-0.2) K/mcL Lactic Acid 0.9 (0.5-2.2) mmol/L Urine Color Yellow (Yellow) Urine Clarity Clear (Clear) Urine pH 5.5 (5.0-8.0) pH Units Ur Specific [place] 1.024 (1.010-1.025) Urine Protein Trace (Neg-Trace) mg/dL Urine Glucose (UA) Normal (Normal) mg/dL Urine Ketones Negative (Negative) mg/dL Urine Blood Moderate H (Negative) Urine Nitrite Negative (Negative) Urine Bilirubin Negative (Negative) Urine Urobilinogen Normal (Normal) mg/dL Ur Leukocyte Esterase Small H (Negative) Urine Microscopic RBC 5-15 H (0-3) per hpf Urine Microscopic WBC 5-15 H (0-3) per hpf Ur Squamous Epith Cells Many H (None-Few) per lpf Urine Bacteria None Seen (None-Few) per hpf Hyaline Casts None Seen (None-Few) per lpf Ur Culture Indicated? NO. A (NO) - Radiology Data Radiology results reviewed: Yes I reviewed the patient's radiology results. FINDINGS: Patient is rotated. Emphysematous changes. No definite pneumothorax. There is patchy bibasilar opacities which may reflect atelectasis. No pleural effusion. Stable cardiomediastinal silhouette. No overt pulmonary edema. The osseous structures are stable. Osteopenia. Remote right rib fractures are again identified. XR/XR chest 2V IMPRESSION: Bibasilar opacities, either atelectasis or pneumonia. Emphysematous changes.
[2017-12-10 10:52] LABS: Bilirubin,Urine Negative (Negative); Clarity,Urine Clear (Clear); Color,Urine Yellow (Yellow); Glucose,Urine (UA) Normal (Normal); Ketones,Urine Negative (Negative); Specific Gravity,Urine 1.024 (1.010-1.025)
[2017-12-10 10:53] LABS: Blood,Urine Moderate (Negative); Leukocyte Esterase,Urine Small (Negative); Nitrite,Urine Negative (Negative); PH,Urine 5.5 pH Units (5.0-8.0); Protein,Urine Trace mg/dL (Neg-Trace); Urobilinogen,Urine Normal (Normal)
[2017-12-10 10:56] LABS: Bacteria,Urine None Seen per hpf (None-Few); Hyaline Casts,Urine None Seen per lpf (None-Few); Squamous Epithelial Cell,Urine Many per lpf (None-Few)
--- NOTE | 2017-12-10 10:59 | Emergency Department Note ---
Disposition Clinical Impression: Anemia, GI bleeding, Pneumonia Disposition: Admitted As Inpatient Condition: Fair General Adult HPI - General Chief complaint: ED Recheck/Abnormal Lab/Rx Stated complaint: abnormal lab Time Seen by Provider: 12/10/17 10:10 Source: other Mode of arrival: EMS Limitations: altered mental status Nursing Notes Reviewed: Yes Vital Signs Reviewed: Yes - History of Present Illness Pain Scale: 0 - Related Data Home Medications Medication Instructions Recorded Confirmed Finasteride [Proscar] 5 mg PO DAILY 09/30/16 12/10/17 Acetaminophen [Non-Aspirin] 650 mg PO Q6H PRN 12/10/17 12/10/17 Amoxicillin/Clavulanate [Augmentin] 875 mg PO BIDWM 12/10/17 12/10/17 Ciclopirox Olamine [Ciclodan] 1 appl TP BID 12/10/17 12/10/17 Citalopram [CeleXA] 10 mg PO DAILY 12/10/17 12/10/17 Docusate [Colace] 100 mg PO BID 12/10/17 12/10/17 Docusate [Colace] 100 mg PO DAILY 12/10/17 12/10/17 Famotidine [Pepcid] 10 mg PO DAILY 12/10/17 12/10/17 Lisinopril [Zestril] 5 mg PO DAILY 12/10/17 12/10/17 Loperamide [Imodium] 2 mg PO QID PRN 12/10/17 12/10/17 Megestrol Acetate [Megace] 10 ml PO DAILY 12/10/17 12/10/17 Oxycodone HCl 10 mg PO Q6H PRN 12/10/17 12/10/17 Polyethylene Glycol 3350 [MiraLAX] 17 gm PO DAILY 12/10/17 12/10/17 Pravastatin Sodium [Pravachol] 10 mg PO DAILY 12/10/17 12/10/17 Sennosides/Docusate Sodium [Colace 1 tab PO DAILY PRN 12/10/17 12/10/17 2-in-1 Tablet] Tamsulosin HCl [Flomax] 0.4 mg PO DAILY 12/10/17 12/10/17 Allergies Allergy/AdvReac Type Severity Reaction Status Date / Time ciprofloxacin Allergy Rash Verified 12/10/17 10:56 fluconazole Allergy Rash Verified 12/10/17 10:56 Constitutional: Denies: fever, chills Eyes: Denies: eye pain, eye discharge, vision change ENT ED: Denies: ear pain, throat pain, dental pain Cardiovascular: Denies: chest pain, palpitations, dyspnea on exertion Respiratory: Reports: cough. Denies: dyspnea, wheezes Gastrointestinal: Denies: abdominal pain, nausea, vomiting Genitourinary: Denies: urgency, dysuria, frequency Musculoskeletal: Denies: back pain, neck pain, joint swelling Integumentary: Denies: rash, abrasion, lesions Neurological: Denies: headache, weakness Psychiatric: Denies: anxiety, depression, suicidal thoughts Endocrine: Denies: fatigue, heat or cold intolerance Hematological/Lymphatic: Denies: easy bleeding, easy bruising Allergic/Immunologic: Denies: facial swelling, urticaria Past Medical History - Past Medical History Medical history: Reports: arthritis, COPD, dementia, hyperlipidemia, hypertension, renal disease, other Surgical history: Reports: cataract, other (Craniotomy. EGD. Colonoscopy.) Psychiatric history: Reports: anxiety - Social History Smoking Status: Former smoker Smokeless Tobacco Status: No Alcohol use: Reports: none Drug use: Reports: none Physical Exam - General Limitations: altered mental status General appearance: alert, other (not oriented due to Dementia status) Course Vital Signs Temperature 98.0 F 12/10/17 10:21 Pulse Rate 103 12/10/17 10:21 Respiratory Rate 18 12/10/17 10:21 Blood Pressure 136/75 12/10/17 10:21 O2 Sat by Pulse Oximetry 93 12/10/17 10:21 Temperature 98.0 F 12/10/17 10:21 Pulse Rate 80 12/10/17 12:36 Respiratory Rate 18 12/10/17 12:36 Blood Pressure 138/75 12/10/17 12:36 O2 Sat by Pulse Oximetry 97 12/10/17 12:36 Oxygen Delivery Oxygen Delivery Room Air Medical Decision Making - MDM Narrative Medical decision making narrative: This documentation is done with the assistance of Dragon dictation. Despite efforts made to ensure accuracy, there may be inaccuracies in lining sewer or spelling and typographical errors. [facility] sent from the [facility] due to possible GI bleed and low hemoglobin. Last hemoglobin was in the 8 range a week ago 6.5. We will check labs order blood and do a guaiac exam no abdominal pain. Patient will need admission. Chest X-Ray 12/10/17 10:11 IMPRESSION: Bibasilar opacities, either atelectasis or pneumonia. Emphysematous changes. D/ / 12/10/2017 10:57:54 Kathleen Mcpherson MD / [facility] Interpreting Provider: Kathleen Mcpherson MD 1125 hrs.: Patient's chest x-ray shows possible pneumonia with elevated white count or you start on antibiotics and admit. Dr. Mcconnell has seen the patient is agreement with the management plan. - Lab Data Result diagrams: 12/10/17 11:09 Lab Results 12/10/17 12/10/17 12/10/17 Range/Units 10:31 11:09 11:09 WBC 15.5 H (4.3-11.1) K/mcL RBC 2.82 L (4.19-5.50) M/mcL Hgb 6.6 L (12.9-16.9) g/dL Hct 22.5 L (37.5-50.1) % MCV 79.8 L (83.0-100.0) fL MCH 23.4 L (28.0-33.3) pg MCHC 29.3 L (31.6-35.5) g/dL RDW 15.9 H (11.5-14.5) % Plt Count 519 H (140-400) K/mcL MPV 8.9 L (9.4-12.4) fL Immature Gran % 1.0 (0-4) % Seg Neutrophils % 81.7 % Lymphocytes % 10.7 % Monocytes % 5.3 % Eosinophils % 1.0 % Basophils % 0.3 % Neutrophils # 12.7 H (1.6-8.9) K/mcL Lymphocytes # 1.7 (0.6-4.6) K/mcL Monocytes # 0.8 (0.0-1.3) K/mcL Eosinophils # 0.2 (0.0-0.6) K/mcL Basophils # 0.0 (0.0-0.2) K/mcL Lactic Acid 0.9 (0.5-2.2) mmol/L Urine Color Yellow (Yellow) Urine Clarity Clear (Clear) Urine pH 5.5 (5.0-8.0) pH Units Ur Specific [place] 1.024 (1.010-1.025) Urine Protein Trace (Neg-Trace) mg/dL Urine Glucose (UA) Normal (Normal) mg/dL Urine Ketones Negative (Negative) mg/dL Urine Blood Moderate H (Negative) Urine Nitrite Negative (Negative) Urine Bilirubin Negative (Negative) Urine Urobilinogen Normal (Normal) mg/dL Ur Leukocyte Esterase Small H (Negative) Urine Microscopic RBC 5-15 H (0-3) per hpf Urine Microscopic WBC 5-15 H (0-3) per hpf Ur Squamous Epith Cells Many H (None-Few) per lpf Urine Bacteria None Seen (None-Few) per hpf Hyaline Casts None Seen (None-Few) per lpf Ur Culture Indicated? NO. A (NO) Attestation Statement - Attestation Attestation: I have personally performed a face to face evaluation on this patient. I have reviewed and agree with the care plan. History and Exam by me shows: Patient was seen by the physician's environmental services assistant and myself, I agree with her evaluation and management plan, supervised the care the patient's stay.
[2017-12-10] MEDS ORDERED: Levofloxacin 750 MG/150 ML 750 MG/150 ML BAG IVPB ONE (11:11)
[2017-12-10 11:17] LABS: Basophils % 0.3 %; Eosinophils # 0.2 K/mcL (0.0-0.6); Hematocrit 22.5 % (37.5-50.1); Lymphocytes # 1.7 K/mcL (0.6-4.6); Lymphocytes % 10.7 %; Mean Corpuscular HGB Conc 29.3 g/dL (31.6-35.5); Mean Corpuscular Hemoglobin 23.4 pg (28.0-33.3); Mean Corpuscular Volume 79.8 fL (83.0-100.0); Mean Platelet Volume 8.9 fL (9.4-12.4); Monocytes # 0.8 K/mcL (0.0-1.3); Monocytes % 5.3 %; Neutrophils # 12.7 K/mcL (1.6-8.9); Platelet Count 519 K/mcL (140-400); Red Blood Count 2.82 M/mcL (4.19-5.50); Red Cell Distribution Width 15.9 % (11.5-14.5); Segmented Neutrophils % 81.7 %
[2017-12-10 11:30] LABS: Hemoglobin 6.6 g/dL (12.9-16.9)
[2017-12-10] MEDS ORDERED: Naloxone 0.4 MG/ML INJ IVP PRN (12:31)
[2017-12-10] MEDS ORDERED: *HR* OxyCODONE Immed Rel 5 MG TABLET PO PRN (12:37)
--- NOTE | 2017-12-10 12:43 | Internal Med History&Physical ---
Date of Encounter: 12/10/17 Time of Encounter: 12:43 Internal Medicine - H&P: HPI Chief complaint: abnormal lab results. 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 Panchal is a 72 year old male who is a [facility] resident, has background medical history of for COPD, hypertension, chronic kidney disease, advanced dementia. Patient was sent from correction to this emergency room for evaluation of the abnormal labs. Noted that patient's hemoglobin has dropped to 6.6 from previous readings which were above 8gm Patient denies chest pain, nausea, abdominal pain, dizziness or diarrhea. Workup in the emergency room: Patient was evaluated in the emergency room. Chest x-ray was done. It was suggestive of a pneumonia. Noted that patient's hemoglobin is 6.6. Reason for admission: Possible GI bleed along with hospital-acquired pneumonia. Past Med Surg Social Fam HX - Past Medical History Medical history: arthritis, COPD, dementia, hyperlipidemia, hypertension, renal disease, other Psychiatric history: anxiety - Past Surgical History Surgical History: cataract, other (Craniotomy. EGD. Colonoscopy.) - Social History Smoking Status: Former smoker Smokeless Tobacco Status: No Alcohol use: none Drug use: none Internal Medicine - H&P: Meds Finasteride [Proscar] 5 mg PO DAILY 09/30/16 [History] Acetaminophen [Non-Aspirin] 650 mg PO Q6H PRN 12/10/17 [History] Amoxicillin/Clavulanate [Augmentin] 875 mg PO BIDWM 12/10/17 [History] Ciclopirox Olamine [Ciclodan] 1 appl TP BID 12/10/17 [History] Citalopram [CeleXA] 10 mg PO DAILY 12/10/17 [History] Docusate [Colace] 100 mg PO BID 12/10/17 [History] Docusate [Colace] 100 mg PO DAILY 12/10/17 [History] Famotidine [Pepcid] 10 mg PO DAILY 12/10/17 [History] Lisinopril [Zestril] 5 mg PO DAILY 12/10/17 [History] Loperamide [Imodium] 2 mg PO QID PRN 12/10/17 [History] Megestrol Acetate [Megace] 10 ml PO DAILY 12/10/17 [History] Oxycodone HCl 10 mg PO Q6H PRN 12/10/17 [History] Polyethylene Glycol 3350 [MiraLAX] 17 gm PO DAILY 12/10/17 [History] Pravastatin Sodium [Pravachol] 10 mg PO DAILY 12/10/17 [History] Sennosides/Docusate Sodium [Colace 2-in-1 Tablet] 1 tab PO DAILY PRN 12/10/17 [ History] Tamsulosin HCl [Flomax] 0.4 mg PO DAILY 12/10/17 [History] 3 Allergy/AdvReac Type Severity Reaction Status Date / Time ciprofloxacin Allergy Rash Verified 12/10/17 10:56 fluconazole Allergy Rash Verified 12/10/17 10:56 ROS unobtainable: due to mental status All Systems PM: A 10-system review of systems was performed and is negative for pertinent findings except as documented above in the HPI. - Constitutional Vitals: Temp Pulse Resp BP Pulse Ox 98.0 F 80 18 138/75 97 12/10/17 10:21 12/10/17 12:36 12/10/17 12:36 12/10/17 12:36 12/10/17 12:36 General appearance: Present: A&O X 2, pleasant, no acute distress - Head Head exam: Present: atraumatic, normocephalic - Eye Eye exam: Present: PERRL, conjuntiva pink, sclera anicteric Pupils: Present: PERRL - Neck Neck exam general surgery: Present: supple, trachea midline. Absent: lymphadenopathy - Respiratory Respiratory exam: Present: CTAB. Absent: accessory muscle use, rales, rhonchi, wheezes - Cardiovascular Cardiovascular exam: Present: RRR, +S1, +S2. Absent: diastolic murmur, gallop, rubs, systolic murmur - GI/Abdominal GI/Abdominal exam: Present: normal bowel sounds, soft, no peritoneal signs. Absent: distended, tenderness - Extremities Exam Extremities exam: Present: warm, radial pulses palpable and symmetrical. Absent : calf tenderness, cyanotic, pedal edema - Neurological Exam Neurological exam: Present: CN II-XII intact, oriented X3, no focal deficits. Absent: pronater drift, facial droop, speech deficit - Skin Skin exam: Present: dry, intact Internal Med - H&P Results - Labs CBC & Chem 7: 12/10/17 11:09 - Assessment and plan (1) GI bleeding Current Visit: Yes Status: Acute Assessment and plan: 72/male Noted that patient has a drop in hemoglobin. Also patient has a hypochromic microcytic anemia. Plan: Admit as inpatient. Serial hemoglobin/hematocrit. Transfuse 2 PRBC. Consult gastroenterology. Nothing by mouth from midnight for possible EGD and colon I examined this patient in the emergency room #10. No family member at bedside. Qualifiers: GI bleed type/associated pathology: unspecified gastrointestinal hemorrhage type Qualified Code(s): K92.2 - Gastrointestinal hemorrhage, unspecified (2) Pneumonia Current Visit: Yes Status: Acute Assessment and plan: Radiologically and serologically noted that patient has a possibility of a pneumonia. Patient received a dose of vancomycin/levofloxacin in the emergency room. At the time of dictation we did not have her renal function. Repeat chemistry was ordered. Depending on the renal function patient will get further antibiotics. Patient received 1 dose of vancomycin/levofloxacin in the emergency room. Qualifiers: Pneumonia type: due to unspecified organism Laterality: unspecified laterality Lung location: lower lobe of lung Qualified Code(s): J18.1 - Lobar pneumonia, unspecified organism (3) HTN (hypertension) Current Visit: No Status: Chronic Assessment and plan: Noted that patient has a background history of hypertension. At this point patient blood pressure is stable. We will continue to monitor his blood pressure. Qualifiers: Hypertension type: essential hypertension Qualified Code(s): I10 - Essential (primary) hypertension (4) COPD (chronic obstructive pulmonary disease) Current Visit: No Status: Chronic Assessment and plan: Patient is known to have COPD. Patient's respiratory status is stable at this point. we will monitor him pretty closely. Qualifiers: COPD type: unspecified COPD Qualified Code(s): J44.9 - Chronic obstructive pulmonary disease, unspecified (5) DVT prophylaxis Current Visit: Yes Status: Acute Assessment and plan: This patient is not a candidate for pharmacological DVT prophylaxis in view of the possible underlying GI bleed. SCD provided Medical decision making: This patient has a moderate to severe risk of worsening in spite of being on appropriate medication due to the complex underlying conditions. - Time Spent With Patient Total time spent is greater than 50% in coordination of care (as documented) at patient's floor/unit and/or counseling patient:
[2017-12-10 14:04] LABS: Troponin I < 0.03 ng/mL (< 0.04)
[2017-12-10] MEDS ORDERED: 0.9 % Sodium Chloride 250 ML ONE ×2 (14:32→18:06)
[2017-12-10] MEDS: 0.9 % Sodium Chloride 1,000 ML IVC SCH (14:46)
[2017-12-10 14:59] LABS: Alanine Aminotransferase 25 Units/L (7-52); Albumin 2.8 g/dL (3.5-5.7); Alkaline Phosphatase 50 Units/L (34-104); Aspartate Amino Transferase 18 Units/L (13-39); BUN/Creatinine Ratio 28 (6-26); Bilirubin,Total 0.3 mg/dL (0.3-1.0); Blood Urea Nitrogen 37 mg/dL (8-23); Calcium 7.9 mg/dL (8.6-10.3); Carbon Dioxide 21 mEq/L (23-29); Chloride 108 mEq/L (98-107); Globulin 2.9 g/dL (2.4-3.5); Glucose 101 mg/dL (70-105); Osmolality,Calculated 293 (280-300); Potassium 4.7 mEq/L (3.5-5.1); Sodium 137 mEq/L (136-145); Total Protein 5.7 g/dL (6.4-8.9); eGFR For African Americans > 60 (> 60); eGFR For Non-African Americans 53 (> 60)
[2017-12-10] MEDS: Pantoprazole 40 MG VIAL IVP SCH (17:19)
[2017-12-10] MEDS: CICLOPIROX OLAMINE APPL TP SCH (20:12)
[2017-12-10 22:33] LABS: % Iron Saturation 29 % (20-55); Ferritin 66 ng/ml (20-250); Iron 68 mcg/dL (65-175); Transferrin 170 mg/dL (203-362)
[2017-12-11] MEDS: 0.9 % Sodium Chloride 1,000 ML IVC SCH (05:22)
[2017-12-11] MEDS: Pantoprazole 40 MG VIAL IVP SCH (05:22)
[2017-12-11 06:15] LABS: Basophils # 0.1 K/mcL (0.0-0.2); Basophils % 0.5 %; Eosinophils # 0.3 K/mcL (0.0-0.6); Eosinophils % 2.5 %; Hematocrit 25.6 % (37.5-50.1); Hemoglobin 7.9 g/dL (12.9-16.9); Immature Granulocytes % 0.7 % (0-4); Lymphocytes # 1.5 K/mcL (0.6-4.6); Lymphocytes % 13.8 %; Mean Corpuscular HGB Conc 30.9 g/dL (31.6-35.5); Mean Platelet Volume 9.1 fL (9.4-12.4); Monocytes # 0.7 K/mcL (0.0-1.3); Monocytes % 5.9 %; Neutrophils # 8.4 K/mcL (1.6-8.9); Platelet Count 423 K/mcL (140-400); Red Blood Count 3.16 M/mcL (4.19-5.50); Red Cell Distribution Width 15.5 % (11.5-14.5); Segmented Neutrophils % 76.6 %
[2017-12-11 06:34] LABS: Alanine Aminotransferase 19 Units/L (7-52); Albumin 2.4 g/dL (3.5-5.7); Albumin/Globulin Ratio 0.8 (1.1-2.2); Alkaline Phosphatase 46 Units/L (34-104); Aspartate Amino Transferase 11 Units/L (13-39); BUN/Creatinine Ratio 25 (6-26); Bilirubin,Total 0.5 mg/dL (0.3-1.0); Blood Urea Nitrogen 27 mg/dL (8-23); Calcium 7.6 mg/dL (8.6-10.3); Carbon Dioxide 19 mEq/L (23-29); Chloride 112 mEq/L (98-107); Globulin 2.9 g/dL (2.4-3.5); Glucose 76 mg/dL (70-105); Osmolality,Calculated 294 (280-300); Potassium 4.3 mEq/L (3.5-5.1); Sodium 140 mEq/L (136-145); Total Protein 5.3 g/dL (6.4-8.9); eGFR For African Americans > 60 (> 60); eGFR For Non-African Americans > 60 (> 60)
[2017-12-11 08:37] LABS: Anisocytosis 1+ (Not Present); Platelet Estimate Normal (Normal); Polychromasia 1+ (Not Present)
[2017-12-11 08:38] LABS: Hypochromasia Present (Not Present)
[2017-12-11] MEDS: Finasteride 5 MG TABLET PO SCH (08:59)
[2017-12-11] MEDS: CICLOPIROX OLAMINE APPL TP SCH (09:00)
[2017-12-11] MEDS: Nystatin POWDER 30 GM BOTTLE TP SCH ×2 (10:57→21:27)
--- NOTE | 2017-12-11 11:10 | Gastroenterology Consult Note ---
<AdrianEverton read Solomon - Last Filed: 12/11/17 11:08> Date of Encounter: 12/11/17 Time of Encounter: 10:30 - Assessment and plan (1) Anemia Current Visit: Yes Status: Acute Assessment and plan: Hgb 6.6 on admission and after 2 units PRBC Hgb 7.9 this morning. Continue to monitor CBC and transfuse PRBC as needed. Plan for EGD today and colonoscopy tomorrow. Qualifiers: Anemia type: unspecified type Qualified Code(s): D64.9 - Anemia, unspecified (2) GI bleeding Current Visit: Yes Status: Acute Assessment and plan: Fecal occult blood test positive in the ED. Plan for EGD today to r/o esophagitis, gastritis, duodenitis, PUD, MW tear, or AVM. Plan for colonoscopy tomorrow. Keep NPO until after EGD then clear liquid diet today, no red or purple. NPO at midnight. If unable tolerate NuLytely please use MiraLAX prep. If not clear by 6 AM, give 2 tap water enemas. Qualifiers: GI bleed type/associated pathology: unspecified gastrointestinal hemorrhage type Qualified Code(s): K92.2 - Gastrointestinal hemorrhage, unspecified - Time Spent With Patient Total time spent is greater than 50% in coordination of care (as documented) at patient's floor/unit and/or counseling patient: GI History of Present Illness - Data of Consult Patient: new to practice Consult date: 12/11/17 Requesting Physician: Néstor Skinner DO - Consult Narrative Reason for consult: GI bleed History of present illness: Mr. Panchal is a 72 year old male with PMHx of arthritis, COPD, dementia, HLD , HTN, CKD who is a detention resident was sent to the ED for evaluation of anemia. Hgb was 6.6 on arrival down from previous readings of greater than 8. After 2 units PRBC, Hgb 7.9 this morning. Fecal occult blood test was positive in the ED. He denies fever, chills, chest pain, abdominal pain, nausea, vomiting , diarrhea, melena, or hematochezia. CXR completed was suggestive of pneumonia. Procedures: Colonoscopy 10/01/2016 Dr. Bae: Diverticulosis, tubular adenoma in cecum, and sessile serrated adenoma in transvers colon. EGD 09/30/2016 Dr. Bae: [place] colored mucosa in esophagus, negative for Marks's, large hiatal hernia, chronic gastritis NSAIDs: ASA Anticoagulation: None Past Med Surg Social Fam HX - Past Medical History Medical history: arthritis, COPD, dementia, hyperlipidemia, hypertension, renal disease, other Psychiatric history: anxiety - Past Surgical History Surgical History: cataract, other (Craniotomy. EGD. Colonoscopy.) - Social History Smoking Status: Former smoker Smokeless Tobacco Status: No Alcohol use: none Drug use: none - Gastrointestinal Gastrointestinal: Present: as per HPI - Constitutional Constitutional: as per HPI - EENT Eyes: as per HPI Ears: Present: as per HPI Nose, mouth and throat: Present: as per HPI - Cardiovascular Cardiovascular ROS: Present: as per HPI - Respiratory Respiratory IM: Present: as per HPI - Genitourinary Genitourinary: Absent: change in color, Urinary frequency - Neurological ROS Neurological GI: Present: as per HPI - Hematologic/Lymphatic Hematologic/Lymphatic pediatric: Present: as per HPI - Musculoskeletal Musculoskeletal ROS GI: Present: as per HPI - Integumentary Integumentary GI: Present: as per HPI - Psychiatric ROS Psychiatric GI: Present: as per HPI - Endocrine Endocrine IM: Present: as per HPI - Constitutional Vitals: Temp Pulse Resp BP Pulse Ox 98.1 F 77 18 157/70 97 12/11/17 07:02 12/11/17 07:02 12/11/17 07:02 12/11/17 07:02 12/11/17 09:07 General appearance: Present: cooperative, A&O X 1, no acute distress, answers questions appropriately - Head Head exam: Present: atraumatic, normocephalic - Eye Eye exam: Present: normal appearance, sclera anicteric - ENT ENT exam: Present: mucous membranes dry - Neck Neck exam general surgery: Present: normal inspection, trachea midline - Respiratory Respiratory exam: Present: decreased breath sounds, CTAB. Absent: rales, rhonchi - Cardiovascular Cardiovascular exam: Present: RRR, +S1, +S2 - GI/Abdominal GI/Abdominal exam: Present: soft, no peritoneal signs. Absent: distended, firm , guarding, tenderness - Rectal Rectal exam: Present: deferred - Extremities Exam Extremities exam: Present: warm - Neurological Exam Neurological exam: Absent: oriented X3 - Psychiatric Psychiatric exam: Present: normal affect, normal mood - Skin Skin exam: Present: dry, intact, normal color, warm Results - Labs CBC & Chem 7: 12/11/17 06:00 12/11/17 06:00 Labs: Last Result Calcium 7.6 mg/dL (8.6-10.3) L 12/11/17 06:00 Iron 68 mcg/dL (65-175) 12/10/17 21:48 % Saturation 29 % (20-55) 12/10/17 21:48 Transferrin 170 mg/dL (203-362) L 12/10/17 21:48 Ferritin 66 ng/ml (20-250) 12/10/17 21:48 Troponin I < 0.03 ng/mL (< 0.04) 12/11/17 06:00 Vitamin B12 242 pg/mL (250-1100) L 12/10/17 21:48 Entire Visit Hgb 7.9 g/dL (12.9-16.9) L 12/11/17 06:00 Hct 25.6 % (37.5-50.1) L 12/11/17 06:00 Ferritin 66 ng/ml (20-250) 12/10/17 21:48 Total Bilirubin 0.5 mg/dL (0.3-1.0) 12/11/17 06:00 AST 11 Units/L (13-39) L 12/11/17 06:00 ALT 19 Units/L (7-52) 12/11/17 06:00 Consult Discharge Plan - Plan Referrals: Clif Hamilton MD [Primary Care Provider] - <Tyler Carlisle - Last Filed: 12/12/17 12:17> Date of Encounter: 12/11/17 - Time Spent With Patient Total time spent is greater than 50% in coordination of care (as documented) at patient's floor/unit and/or counseling patient: GI History of Present Illness - Data of Consult Requesting Physician: Néstor Skinner DO - Consult Narrative History of present illness: Mr. Panchal is a 72 year old male - Constitutional Vitals: Temp Pulse Resp BP Pulse Ox 98 F 79 18 164/98 96 12/12/17 11:59 12/12/17 11:59 12/12/17 11:59 12/12/17 11:59 12/12/17 11:59 Results - Labs CBC & Chem 7: 12/12/17 05:14 12/12/17 04:37 Labs: Last Result Calcium 7.5 mg/dL (8.6-10.3) L 12/12/17 04:37 Iron 68 mcg/dL (65-175) 12/10/17 21:48 % Saturation 29 % (20-55) 12/10/17 21:48 Transferrin 170 mg/dL (203-362) L 12/10/17 21:48 Ferritin 66 ng/ml (20-250) 12/10/17 21:48 Troponin I < 0.03 ng/mL (< 0.04) 12/11/17 06:00 Vitamin B12 242 pg/mL (250-1100) L 12/10/17 21:48 Entire Visit Hgb 8.1 g/dL (12.9-16.9) L 12/12/17 05:14 Hct 26.5 % (37.5-50.1) L 12/12/17 05:14 Ferritin 66 ng/ml (20-250) 12/10/17 21:48 Total Bilirubin 0.5 mg/dL (0.3-1.0) 12/11/17 06:00 AST 11 Units/L (13-39) L 12/11/17 06:00 ALT 19 Units/L (7-52) 12/11/17 06:00 - Impressions Impressions Abdomen/Pelvis CT 12/11/17 14:55 IMPRESSION: 1. Findings are suggestive of acute uncomplicated sigmoid diverticulitis. However, would recommend correlation with colonoscopy once acute issues have resolved to exclude underlying mass in this region given wall thickening. 2. Several hepatic cysts are , however there is an indeterminate 1.9 x 1.5 cm left hepatic lobe lesion which measures above fluid attenuation. Consider further evaluation with MRI for further characterization if the patient is able. 3. Moderate left hydronephrosis without hydroureter. No obstructing stone identified. UPJ obstruction is suspected. 4. Cholelithiasis. 5. Age indeterminate T11 superior endplate compression deformity. Recommend correlation with focal area of pain. 6. Small left and trace right pleural effusions with adjacent atelectasis. Evaluation of lungs is otherwise slightly limited due to respiratory motion artifact. There is diffuse bronchial wall thickening and emphysematous changes. Questionable bronchiectasis. 7. Moderate hiatal hernia with mild wall thickening of the distal esophagus, nonspecific. The findings were sent to the Radiology Results Communication [facility] at 4:20 pm on 12/11/2017to be communicated to a licensed caregiver. D/ / 12/11/2017 16:55:27 Kathleen Mcpherson MD / [facility] Interpreting Provider: Kathleen Mcpherson MD Chest CT 12/11/17 14:55 IMPRESSION: 1. Findings are suggestive of acute uncomplicated sigmoid diverticulitis. However, would recommend correlation with colonoscopy once acute issues have resolved to exclude underlying mass in this region given wall thickening. 2. Several hepatic cysts are , however there is an indeterminate 1.9 x 1.5 cm left hepatic lobe lesion which measures above fluid attenuation. Consider further evaluation with MRI for further characterization if the patient is able. 3. Moderate left hydronephrosis without hydroureter. No obstructing stone identified. UPJ obstruction is suspected. 4. Cholelithiasis. 5. Age indeterminate T11 superior endplate compression deformity. Recommend correlation with focal area of pain. 6. Small left and trace right pleural effusions with adjacent atelectasis. Evaluation of lungs is otherwise slightly limited due to respiratory motion artifact. There is diffuse bronchial wall thickening and emphysematous changes. Questionable bronchiectasis. 7. Moderate hiatal hernia with mild wall thickening of the distal esophagus, nonspecific. The findings were sent to the Radiology Results Communication Center at 4:20 pm on 12/11/2017to be communicated to a licensed caregiver. D/ / 12/11/2017 16:55:27 Kathleen Mcpherson MD / [facility] Interpreting Provider: Kathleen Mcpherson MD - Attending Attestation Mr. Panchal is an unfortunate 72-year-old male who was some resident of a detention was found to have shortness of breath and looked rather pale and was brought to the emergency room with a hemoglobin of 6.8 g percent. Patient be transfused with 2 units of packed cells and the plan upper upper endoscopy tomorrow. I reviewed his past scans as well as his endoscopy in the past. To his son who is his power of associate attorney and obtained informed consent for endoscopy. Pathology patient is demented and of extremely poor historian so no information was obtained by interview. Patient appears to be hemodynamically stable and make further recommendations after endoscopy tomorrow which be done under monitored anesthesia care Thank very much for this consultation I have personally performed a face to face evaluation on this patient. I have reviewed and agree with the care plan. History and Exam by me shows:
[2017-12-11] MEDS ORDERED: *HR* Dextrose 50 % in Water (Syg) 50 ML SYRINGE IVP PRN (11:27)
[2017-12-11] MEDS ORDERED: D5% in Water 1,000 ML IVC PRN (11:27)
[2017-12-11] MEDS ORDERED: Dextrose Gel 15 GM/37.5 ML TUBE PO PRN ×2 (11:27)
--- NOTE | 2017-12-11 11:41 | Internal Med Progress Note ---
<Denzel Walker - Last Filed: 12/11/17 15:17> Date of Encounter: 12/11/17 Time of Encounter: 10:05 - Assessment and plan (1) GI bleeding Current Visit: Yes Status: Acute Assessment and plan: - Known history of previous GI bleeding - H/H on admission of 6.6/22.5. MCV demonstrates a microcytic anemia likely secondary to chronic blood loss versus iron deficiency - He received 2 units of packed red blood cells on admission with improvement of H&H to 7.9/25 - GI consult on admission, appreciate recommendations - Patient is minimally vocal and unable to express if he is experiencing symptoms - Consent for interventions and transfusions obtained from POA - Most recent investigations on 09/30/2016 with EGD showing atrophic gastritis as well as colonoscopy showing diverticulosis without evidence of diverticulitis - B12 mildly low at 242. Plan - Nothing by mouth for planned EGD this afternoon with gastroenterology - We will also plan for colonoscopy with prep tomorrow - We will trend H/H every 6 hours and transfuse as necessary - Continue Protonix 40 mg twice a day - Iron studies pending 5/3 PM: EGD results showing circumferential distal esophageal ulcers, stricture , obstructing mass, signs of recent bleeding. See report for full findings. Recommends carafate, PPI, mechanically soft diet indefinitely, CT chest/abdomen/ pelvis. Will order and follow up. Colonoscopy cancelled as source is likely found. Qualifiers: GI bleed type/associated pathology: unspecified gastrointestinal hemorrhage type Qualified Code(s): K92.2 - Gastrointestinal hemorrhage, unspecified (2) HTN (hypertension) Current Visit: No Status: Chronic Assessment and plan: -Blood pressures previously been well controlled however is mildly elevated today after receiving transfusion - Post recent blood pressure in the 150s over 80s - At this point due to risk of GI bleed as well as procedure requiring anesthesia plan for this afternoon, we will hold off on additional blood pressure medications and continue to monitor closely Qualifiers: Hypertension type: essential hypertension Qualified Code(s): I10 - Essential (primary) hypertension (3) COPD (chronic obstructive pulmonary disease) Current Visit: No Status: Chronic Assessment and plan: Patient is known to have COPD. Not in acute exacerbation Patient's respiratory status is stable at this point. Continue home medications we will monitor him pretty closely. Qualifiers: COPD type: unspecified COPD Qualified Code(s): J44.9 - Chronic obstructive pulmonary disease, unspecified (4) Pneumonia Current Visit: Yes Status: Ruled-out Assessment and plan: - Radiologically and serologically noted that patient has a possibility of a pneumonia. - After review of chest x-ray today, more likely that it is atelectasis - Patient received 1 dose of vancomycin/levofloxacin in the emergency room. - WBC is down trended from 15-11, likely reactive Plan -Patient is tolerating room air and white count is minimally elevated which is likely secondary to reactive process - No complaints of cough, shortness of breath -We will not give antibiotics at this time and continue to monitor Qualifiers: Pneumonia type: due to unspecified organism Laterality: unspecified laterality Lung location: lower lobe of lung Qualified Code(s): J18.1 - Lobar pneumonia, unspecified organism (5) CKD (chronic kidney disease) stage 3, GFR 30-59 ml/min Current Visit: Yes Status: Chronic Assessment and plan: - BUN/Cr of 27/1.08, improved from admission of 1.33 Cr, - Appears to be near baseline, 0.8-1.2 Plan - Avoid nephrotoxic agents - Continue fluids at slow rate until he is able to fully eat. - Monitor. (6) Anemia Current Visit: Yes Status: Chronic Assessment and plan: - H/H low on admission as above. - Decreased MCV suggesting iron deficiency as is increased RDW - Improved s/p 2 units PRBCs. - Likely secondary to GI bleed per endoscopy notes. Plan as above. Qualifiers: Anemia type: iron deficiency Iron deficiency anemia type: unspecified iron deficiency Qualified Code(s): D50.9 - Iron deficiency anemia, unspecified (7) DVT prophylaxis Current Visit: Yes Status: Acute Assessment and plan: This patient is not a candidate for pharmacological DVT prophylaxis in view of the possible underlying GI bleed. SCD provided (8) Intertrigo Current Visit: Yes Status: Acute Assessment and plan: - In axilla, groin. - Add nystatin - Time Spent With Patient Total time spent is greater than 50% in coordination of care (as documented) at patient's floor/unit and/or counseling patient: 25 - 35 minutes - Subjective Interval history: Patient was seen and examined at bedside this morning. He has a history of a fascia and is able to communicate yes or no answers. He states that he is not experiencing any complications or problems at this time. He has no complaints. Denies any pain. - Constitutional Vitals: Temp Pulse Resp BP Pulse Ox 98.1 F 77 18 157/70 97 12/11/17 07:02 12/11/17 07:02 12/11/17 07:02 12/11/17 07:02 12/11/17 09:07 General appearance: Present: A&O X 2, pleasant, no acute distress Exam: Gen.: Vitals noted. No acute distress. AAOx3 HEENT: PERRL/EOMI, oropharynx clear, Normocephalic, atraumatic, mildly dry mucous membranes Cardiac: RRR, no murmur, +S1/S2 Pulmonary: CTA bilaterally, no wheezes, rales or rhonchi, equal chest expansion Abdomen: soft, nontender, BS noted, no guarding MSK: ROM intact, no joint swelling noted : Evidence of intertrigo in bilateral groin and axilla. Extremities: no BLE edema, nontender calf, no cyanosis or clubbing Neuro: A&Ox3, moves all extremities, no focal deficits Psych: Appropriate mood and behavior Internal Medicine: Result - Labs CBC & Chem 7: 12/11/17 11:36 12/11/17 06:00 Labs: Short CBC 12/11/17 Range/Units 06:00 WBC 11.0 (4.3-11.1) K/mcL Hgb 7.9 L (12.9-16.9) g/dL Hct 25.6 L (37.5-50.1) % Plt Count 423 H (140-400) K/mcL Neutrophils # 8.4 (1.6-8.9) K/mcL BMP 12/10/17 12/11/17 13:32 06:00 Sodium 137 140 Potassium 4.7 4.3 Chloride 108 H 112 H Carbon Dioxide 21 L 19 L BUN 37 H 27 H Creatinine 1.33 H 1.08 Glucose 101 76 Calcium 7.9 L 7.6 L Cardiac Enzymes 12/10/17 12/10/17 12/11/17 Range/Units 13:32 21:48 06:00 Troponin I < 0.03 < 0.03 < 0.03 (< 0.04) ng/mL Liver Function 12/10/17 12/11/17 Range/Units 13:32 06:00 Total Bilirubin 0.3 0.5 (0.3-1.0) mg/dL AST 18 11 L (13-39) Units/L ALT 25 19 (7-52) Units/L Alkaline Phosphatase 50 46 (34-104) Units/L Albumin 2.8 L 2.4 L (3.5-5.7) g/dL Consult Discharge Plan - Plan Referrals: Clif Hamilton MD [Primary Care Provider] - <Néstor Skinner - Last Filed: 12/11/17 17:35> Date of Encounter: 12/11/17 - Assessment and plan (1) GI bleeding Current Visit: Yes Status: Suspected Qualifiers: GI bleed type/associated pathology: gastritis Gastritis type: acute gastritis Qualified Code(s): K29.01 - Acute gastritis with bleeding (2) Anemia Current Visit: Yes Status: Chronic Qualifiers: Anemia type: iron deficiency Iron deficiency anemia type: chronic blood loss Qualified Code(s): D50.0 - Iron deficiency anemia secondary to blood loss (chronic) (3) HTN (hypertension) Current Visit: No Status: Chronic Qualifiers: Hypertension type: essential hypertension Qualified Code(s): I10 - Essential (primary) hypertension (4) Pneumonia Current Visit: Yes Status: Ruled-out Qualifiers: Pneumonia type: due to unspecified organism Laterality: unspecified laterality Lung location: lower lobe of lung Qualified Code(s): J18.1 - Lobar pneumonia, unspecified organism (5) CKD (chronic kidney disease) stage 3, GFR 30-59 ml/min Current Visit: Yes Status: Chronic (6) COPD (chronic obstructive pulmonary disease) Current Visit: No Status: Chronic Qualifiers: COPD type: unspecified COPD Qualified Code(s): J44.9 - Chronic obstructive pulmonary disease, unspecified (7) Intertrigo Current Visit: Yes Status: Acute (8) DVT prophylaxis Current Visit: Yes Status: Acute - Time Spent With Patient Total time spent is greater than 50% in coordination of care (as documented) at patient's floor/unit and/or counseling patient: - Constitutional Vitals: Temp Pulse Resp BP Pulse Ox 98.2 F 79 16 163/93 97 12/11/17 14:00 12/11/17 15:02 12/11/17 15:02 12/11/17 15:02 12/11/17 15:02 Internal Medicine: Result - Labs CBC & Chem 7: 12/11/17 14:41 12/11/17 06:00 Labs: Short CBC 12/11/17 12/11/17 12/11/17 Range/Units 06:00 11:36 14:41 WBC 11.0 11.9 H (4.3-11.1) K/mcL Hgb 7.9 L 8.8 L 9.2 L (12.9-16.9) g/dL Hct 25.6 L 29.1 L 30.0 L (37.5-50.1) % Plt Count 423 H 465 H (140-400) K/mcL Neutrophils # 8.4 9.2 H (1.6-8.9) K/mcL BMP 12/11/17 06:00 Sodium 140 Potassium 4.3 Chloride 112 H Carbon Dioxide 19 L BUN 27 H Creatinine 1.08 Glucose 76 Calcium 7.6 L Cardiac Enzymes 12/10/17 12/11/17 Range/Units 21:48 06:00 Troponin I < 0.03 < 0.03 (< 0.04) ng/mL Liver Function 12/11/17 Range/Units 06:00 Total Bilirubin 0.5 (0.3-1.0) mg/dL AST 11 L (13-39) Units/L ALT 19 (7-52) Units/L Alkaline Phosphatase 46 (34-104) Units/L Albumin 2.4 L (3.5-5.7) g/dL - Impressions Impressions Abdomen/Pelvis CT 12/11/17 14:55 IMPRESSION: 1. Findings are suggestive of acute uncomplicated sigmoid diverticulitis. However, would recommend correlation with colonoscopy once acute issues have resolved to exclude underlying mass in this region given wall thickening. 2. Several hepatic cysts are , however there is an indeterminate 1.9 x 1.5 cm left hepatic lobe lesion which measures above fluid attenuation. Consider further evaluation with MRI for further characterization if the patient is able. 3. Moderate left hydronephrosis without hydroureter. No obstructing stone identified. UPJ obstruction is suspected. 4. Cholelithiasis. 5. Age indeterminate T11 superior endplate compression deformity. Recommend correlation with focal area of pain. 6. Small left and trace right pleural effusions with adjacent atelectasis. Evaluation of lungs is otherwise slightly limited due to respiratory motion artifact. There is diffuse bronchial wall thickening and emphysematous changes. Questionable bronchiectasis. 7. Moderate hiatal hernia with mild wall thickening of the distal esophagus, nonspecific. The findings were sent to the [facility] Results [facility] at 4:20 pm on 12/11/2017to be communicated to a licensed caregiver. D/ / 12/11/2017 16:55:27 Kathleen Mcpherson MD / tiago Interpreting Provider: Kathleen Mcpherson MD Chest CT 12/11/17 14:55 IMPRESSION: 1. Findings are suggestive of acute uncomplicated sigmoid diverticulitis. However, would recommend correlation with colonoscopy once acute issues have resolved to exclude underlying mass in this region given wall thickening. 2. Several hepatic cysts are , however there is an indeterminate 1.9 x 1.5 cm left hepatic lobe lesion which measures above fluid attenuation. Consider further evaluation with MRI for further characterization if the patient is able. 3. Moderate left hydronephrosis without hydroureter. No obstructing stone identified. UPJ obstruction is suspected. 4. Cholelithiasis. 5. Age indeterminate T11 superior endplate compression deformity. Recommend correlation with focal area of pain. 6. Small left and trace right pleural effusions with adjacent atelectasis. Evaluation of lungs is otherwise slightly limited due to respiratory motion artifact. There is diffuse bronchial wall thickening and emphysematous changes. Questionable bronchiectasis. 7. Moderate hiatal hernia with mild wall thickening of the distal esophagus, nonspecific. The findings were sent to the Radiology Results Communication [facility] at 4:20 pm on 12/11/2017to be communicated to a licensed caregiver. D/ / 12/11/2017 16:55:27 Kathleen Mcpherson MD / tiago Interpreting Provider: Kathleen Mcpherson MD - Attending Attestation I examined this patient and my medical decision-making was reviewed with the Resident Physician on 12/11/17. I agree with the documented findings, disposition and treatment plan as described except to the extent set forth below. Mr Panchal is currently admitted for anemia related to presumed GI bleed and possible pneumonia. He remains moderate to high risk due to potential for worsening clinical status. Mr Panchal is doing OK. He is able to answer Yes and No for me. Denies pain. No fever. No cough. Exam alert Comfortable at this time Mucus membranes dry Heart not tachy No wheeze abd soft and nontender No edema I/P 1. Anemia due to chronic blood loss - for endoscopy today 2. Probable GI bleed 3. Possible pneumonia - abx on hold at this time. Further diagnoses and plan as above.
[2017-12-11 12:04] LABS: Basophils % 0.3 %; Eosinophils # 0.2 K/mcL (0.0-0.6); Eosinophils % 1.9 %; Hematocrit 29.1 % (37.5-50.1); Hemoglobin 8.8 g/dL (12.9-16.9); Immature Granulocytes % 0.8 % (0-4); Lymphocytes # 1.7 K/mcL (0.6-4.6); Lymphocytes % 13.9 %; Mean Corpuscular HGB Conc 30.2 g/dL (31.6-35.5); Mean Corpuscular Volume 82.7 fL (83.0-100.0); Mean Platelet Volume 8.8 fL (9.4-12.4); Monocytes # 0.7 K/mcL (0.0-1.3); Monocytes % 5.9 %; Neutrophils # 9.2 K/mcL (1.6-8.9); Platelet Count 465 K/mcL (140-400); Red Blood Count 3.52 M/mcL (4.19-5.50); Red Cell Distribution Width 15.7 % (11.5-14.5); Segmented Neutrophils % 77.2 %
[2017-12-11] MEDS ORDERED: *HR* Propofol 200 MG/20 ML VIAL IVP ONE (12:28)
[2017-12-11] MEDS ORDERED: Lidocaine -MPF 2% 2 ML VIAL ONE (12:31)
--- NOTE | 2017-12-11 12:31 | Anesthesia Evaluation PreOp ---
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: Other (dementia) Other Medical History: Renal (stage 2 CKD), Diabetes Type II, GERD, Other ( anxiety/depression) Anesthesia History: No Prior Anesthetic Complications, Past Anesthesia Alcohol Use: none Drug use: none Medications and Allergies Finasteride [Proscar] 5 mg PO DAILY 09/30/16 [History] Acetaminophen [Non-Aspirin] 650 mg PO Q6H PRN 12/10/17 [History] Amoxicillin/Clavulanate [Augmentin] 875 mg PO BIDWM 12/10/17 [History] Ciclopirox Olamine [Ciclodan] 1 appl TP BID 12/10/17 [History] Citalopram [CeleXA] 10 mg PO DAILY 12/10/17 [History] Docusate [Colace] 100 mg PO BID PRN 12/10/17 [History] Docusate [Colace] 200 mg PO DAILY 12/10/17 [History] Famotidine [Pepcid] 10 mg PO DAILY 12/10/17 [History] Lisinopril [Zestril] 5 mg PO DAILY 12/10/17 [History] Loperamide [Imodium] 2 mg PO QID PRN 12/10/17 [History] Megestrol Acetate [Megace] 10 ml PO DAILY 12/10/17 [History] Oxycodone HCl 10 mg PO Q6H PRN 12/10/17 [History] Polyethylene Glycol 3350 [MiraLAX] 17 gm PO DAILY 12/10/17 [History] Pravastatin Sodium [Pravachol] 10 mg PO DAILY 12/10/17 [History] Sennosides/Docusate Sodium [Colace 2-in-1 Tablet] 1 tab PO DAILY PRN 12/10/17 [ History] Tamsulosin HCl [Flomax] 0.4 mg PO DAILY 12/10/17 [History] 3 Allergy/AdvReac Type Severity Reaction Status Date / Time ciprofloxacin Allergy Rash Verified 12/10/17 10:56 fluconazole Allergy Rash Verified 12/10/17 10:56 - Meds/Allergy Pre-op Review Medications Reviewed: Yes Allergies Reviewed: Yes Beta Blockers on Current Med List: No Anesthesia Results - Labs 12/11/17 11:36 12/11/17 06:00 Laboratory Tests 10/15/16 08:06 PT 11.6 INR 1.1 APTT 27.3 - Imaging EKG: report reviewed (10/15/2016 SINUS RHYTHM BORDERLINE LEFT AXIS DEVIATION) Anesthesia Exam Vital Signs/O2 Sat/Glucose, Most Recent Temp Pulse Resp BP Pulse Ox 98.1 F 77 18 157/70 97 12/11/17 07:02 12/11/17 07:02 12/11/17 07:02 12/11/17 07:02 12/11/17 09:07 Blood Glucose* 131 Height: 6'/1.83m Weight: 160 lbs/72.7 kg NPO (# of Hours): 8 Pain Scale: 0 Pain Scale Used: Numeric (1 - 10) - HEENT Mallampati: III Teeth: Edentulous Oral Opening: Greater than 3 - EQUIPMENT OILER LOC: Confused - Cardiac Rhythm: Regular Murmur: None - Pulmonary Breath Sounds: bilateral Clear Respiratory Effort: Symmetrical Anesthesia Assess/Plan ASA Score: 3 Modified Elsie Scale for Level of Consciousness: Cooperative, oriented, and tranquil Anesthetic Plan: MAC Monitoring Plan: Standard Monitors
[2017-12-11 15:23] LABS: Hemoglobin 9.2 g/dL (12.9-16.9)
[2017-12-11] MEDS ORDERED: SODIUM CHLORIDE/NAHCO3/KCL/PEG 4,000 ML SOLN.RECON PO ONE (17:00)
[2017-12-11] MEDS: Sucralfate 1 GM TABLET PO SCH ×2 (17:05→21:26)
[2017-12-11] MEDS: cefTRIAXone 1,000 MG in Water for inj. (sterile) 20 ML 10 ML IVP SCH (18:12)
[2017-12-11] MEDS: Clotrimazole 1% CRM 15 GM TUBE TP SCH (21:27)
[2017-12-11 21:58] LABS: Hematocrit 26.8 % (37.5-50.1); Hemoglobin 8.3 g/dL (12.9-16.9)
[2017-12-11] MEDS: MetroNIDAZOLE 500 MG/100 ML 500 MG/100 ML BAG IVPB SCH (23:09)
[2017-12-12 05:43] LABS: BUN/Creatinine Ratio 18 (6-26); Blood Urea Nitrogen 20 mg/dL (8-23); Calcium 7.5 mg/dL (8.6-10.3); Carbon Dioxide 19 mEq/L (23-29); Chloride 111 mEq/L (98-107); Glucose 85 mg/dL (70-105); Osmolality,Calculated 288 (280-300); Potassium 4.5 mEq/L (3.5-5.1); Sodium 138 mEq/L (136-145); eGFR For African Americans > 60 (> 60); eGFR For Non-African Americans > 60 (> 60)
[2017-12-12 06:01] LABS: Basophils % 0.4 %; Eosinophils # 0.3 K/mcL (0.0-0.6); Eosinophils % 2.6 %; Hematocrit 26.5 % (37.5-50.1); Hemoglobin 8.1 g/dL (12.9-16.9); Immature Granulocytes % 0.7 % (0-4); Lymphocytes # 1.3 K/mcL (0.6-4.6); Lymphocytes % 12.5 %; Mean Corpuscular HGB Conc 30.6 g/dL (31.6-35.5); Mean Corpuscular Hemoglobin 24.9 pg (28.0-33.3); Mean Corpuscular Volume 81.5 fL (83.0-100.0); Mean Platelet Volume 9.3 fL (9.4-12.4); Monocytes # 0.6 K/mcL (0.0-1.3); Monocytes % 6.1 %; Neutrophils # 7.9 K/mcL (1.6-8.9); Platelet Count 454 K/mcL (140-400); Red Blood Count 3.25 M/mcL (4.19-5.50); Red Cell Distribution Width 15.9 % (11.5-14.5); Segmented Neutrophils % 77.7 %
[2017-12-12] MEDS: Sucralfate 1 GM TABLET PO SCH ×2 (08:02→11:48)
[2017-12-12] MEDS: MetroNIDAZOLE 500 MG/100 ML 500 MG/100 ML BAG IVPB SCH (08:02)
[2017-12-12 08:54] LABS: Estimated Average Glucose 134 mg/dl; Hemoglobin A1C 6.3 %
[2017-12-12] MEDS: Finasteride 5 MG TABLET PO SCH (09:52)
[2017-12-12] MEDS: cefTRIAXone 1,000 MG in Water for inj. (sterile) 20 ML 10 ML IVP SCH (09:52)
[2017-12-12] MEDS: Nystatin POWDER 30 GM BOTTLE TP SCH (09:54)
[2017-12-12] MEDS: Clotrimazole 1% CRM 15 GM TUBE TP SCH (09:54)
--- NOTE | 2017-12-12 13:03 | Discharge Summary ---
<Denzel Walker - Last Filed: 12/12/17 15:30> - NOTES TO OUTPATIENT PROVIDER Notes to Outpatient Provider: Patient seen for GI bleed. Found Extensive esophageal ulcers, biopsy taken of mass in stomach and CT scans showed liver lesion which should be followed up on if desired. Orders not resulted at time of discharge: Pending orders 12/11/17 14:05 Surgical Pathology [PTH] Routine 12/12/17 13:00 H/H [Hemoglobin and Hematocrit] [HEME] Stat Date of Encounter: 12/12/17 Time of Encounter: 13:01 - Discharge Diagnosis (1) HTN (hypertension) Priority: Secondary Status: Chronic Qualifiers: Hypertension type: essential hypertension Qualified Code(s): I10 - Essential (primary) hypertension (2) CKD (chronic kidney disease) stage 3, GFR 30-59 ml/min Priority: Secondary Status: Chronic (3) COPD (chronic obstructive pulmonary disease) Priority: Secondary Status: Chronic Qualifiers: COPD type: unspecified COPD Qualified Code(s): J44.9 - Chronic obstructive pulmonary disease, unspecified (4) Anemia Priority: Secondary Status: Chronic Qualifiers: Anemia type: iron deficiency Iron deficiency anemia type: chronic blood loss Qualified Code(s): D50.0 - Iron deficiency anemia secondary to blood loss (chronic) (5) GI bleeding Priority: Primary Status: Suspected Qualifiers: GI bleed type/associated pathology: gastritis Gastritis type: acute gastritis Qualified Code(s): K29.01 - Acute gastritis with bleeding (6) Pneumonia Priority: Secondary Status: Ruled-out Qualifiers: Pneumonia type: due to unspecified organism Laterality: unspecified laterality Lung location: lower lobe of lung Qualified Code(s): J18.1 - Lobar pneumonia, unspecified organism (7) DVT prophylaxis Priority: Secondary Status: Acute (8) Intertrigo Priority: Secondary Status: Acute Hospital course: Mr. Panchal is a 72 year old male with a history of dementia and unable to vocalize thoughts presents to ED from senior care after bloodwork returned with Hgb of 6.7. The senior care did not report bloody or black stools. He does have a history of iron deficiency anemia, COPD, OA, HTN, HLD, CKD III. In the ED, vitals were significant for HR 103, otherwise unremarkable. Labs on presentation significant for 6.6 Hgb, WBC of 15.5, Platelets 519, BUN/Cr of 37/ 1.33. Chest Xray showed bibasilar consolidation which was suggestive of either atelectasis vs PNA. He was admitted to medicine service for further evaluation of suspected GI bleed and anemia. During course of hospital stay, patient improved. He was transfused 2 units of PRBC and underwent EGD with GI consult. Findings include circumferential ulceration of the esophagus with ulcers and recent bleeding; stenosis which was traversed, a polypoid mass which was thought to be malignant vs inflammatory, Biopsies were taken and are pending. He was started on carafate in addition to his PPI. CT scans of chest, abdomen, pelvis were obtained and were significant for acute uncomplicated diverticulitis, several hepatic cysts, left hepatic lobe lesion measuring 1.9x1.5 which may represent malignancy, cholelithiasis, moderate hydronephrosis, trace pleural effusions, moderate hiatal hernia. Patient's labs were trended and H/H has remained stable after transfusion. He did receive 2 doses of antibiotics however chest xray was thought to be more related to atelectasis. He did get antibiotics for diverticulitis finding on CT with ceftriaxone and flagyl, and will be discharged home on augmentin to complete his course. No further GI recommendations. He should follow up with his PCP for further management of his chronic conditions, anemia, and CT findings to rule out malignancy. Sent back with nystatin for intertrigo finding. Discharged back to LTC in stable condition. Discharge discussed with: patient, social work, case management - Time Spent with Patient Total time spent providing and/or coordinating discharge services: - Discharge Medications Prescriptions: Nystatin POWDER [Nystop] 1 appl TP BID #1 bottle Sucralfate [Carafate] 1 gm PO QIDAC #10 tablet Home Medications: Finasteride [Proscar] 5 mg PO DAILY 09/30/16 [History] Acetaminophen [Non-Aspirin] 650 mg PO Q6H PRN 12/10/17 [History] Amoxicillin/Clavulanate [Augmentin] 875 mg PO BIDWM 12/10/17 [History] Ciclopirox Olamine [Ciclodan] 1 appl TP BID 12/10/17 [History] Citalopram [CeleXA] 10 mg PO DAILY 12/10/17 [History] Docusate [Colace] 100 mg PO BID PRN 12/10/17 [History] Docusate [Colace] 200 mg PO DAILY 12/10/17 [History] Famotidine [Pepcid] 10 mg PO DAILY 12/10/17 [History] Lisinopril [Zestril] 5 mg PO DAILY 12/10/17 [History] Loperamide [Imodium] 2 mg PO QID PRN 12/10/17 [History] Megestrol Acetate [Megace] 10 ml PO DAILY 12/10/17 [History] Oxycodone HCl 10 mg PO Q6H PRN 12/10/17 [History] Polyethylene Glycol 3350 [MiraLAX] 17 gm PO DAILY 12/10/17 [History] Pravastatin Sodium [Pravachol] 10 mg PO DAILY 12/10/17 [History] Sennosides/Docusate Sodium [Colace 2-in-1 Tablet] 1 tab PO DAILY PRN 12/10/17 [ History] Tamsulosin HCl [Flomax] 0.4 mg PO DAILY 12/10/17 [History] Nystatin POWDER [Nystop] 1 appl TP BID #1 bottle 12/12/17 [Rx] Sucralfate [Carafate] 1 gm PO QIDAC #10 tablet 12/12/17 [Rx] Allergies/Adverse Reactions: 3 Allergy/AdvReac Type Severity Reaction Status Date / Time ciprofloxacin Allergy Rash Verified 12/10/17 10:56 fluconazole Allergy Rash Verified 12/10/17 10:56 Date of admission: 12/10/17 12:31 Primary care physician: Clif Hamilton MD Consults: 12/10/17 12:40 Consult to Gastroenterology [CONS] Routine Consulting Provider: [facility] [place] Reason for Consult: GI bleed Call Completed: Yes Discharging clinician: Denzel Walker Anticipated date of discharge: 12/12/17 - Constitutional Vitals: Temp Pulse Resp BP Pulse Ox 98 F 79 18 164/98 96 12/12/17 11:59 12/12/17 11:59 12/12/17 11:59 12/12/17 11:59 12/12/17 11:59 General appearance: Present: A&O X 2, pleasant, no acute distress Exam: Gen.: Vitals noted. No acute distress. AAOx3 HEENT: PERRL/EOMI, oropharynx clear, Normocephalic, atraumatic, MMM Cardiac: RRR, no murmur, +S1/S2 Pulmonary: CTA bilaterally, no wheezes, rales or rhonchi, equal chest expansion Abdomen: soft, BS noted, no guarding. Perhaps mildly tender in left lower quadrant, unable to appreciate verbal response MSK: ROM intact, no joint swelling noted Extremities: no BLE edema, nontender calf, no cyanosis or clubbing Neuro: A&Ox1, moves all extremities, only says yes or no at baseline Psych: Appropriate mood and behavior - Patient Status Disposition: Transfer LTC Condition: Fair Overall status at discharge: patient is progressing back to baseline - Discharge Instructions Follow Up With: Clif Hamilton MD [Primary Care Provider] - Additional Instructions: Please follow up with her primary care physician upon discharge and take all medications as prescribed. Return to the emergency room with any worsening of symptoms including increased bleeding, increased weakness, dizziness. - Diet and Activity Activity: increase activity as tolerated, resume usual activities as tolerated Diet: other (Pureed diet) <Néstor Skinner - Last Filed: 12/12/17 17:07> Orders not resulted at time of discharge: Pending orders 12/11/17 14:05 Surgical Pathology [PTH] Routine Date of Encounter: 12/12/17 - Discharge Diagnosis (1) Erosive esophagitis Priority: Primary Status: Acute Assessment and Plan: with bleeding (2) GI bleeding Status: Ruled-out Qualifiers: GI bleed type/associated pathology: gastritis Gastritis type: acute gastritis Qualified Code(s): K29.01 - Acute gastritis with bleeding (3) Anemia Status: Chronic Qualifiers: Anemia type: iron deficiency Iron deficiency anemia type: chronic blood loss Qualified Code(s): D50.0 - Iron deficiency anemia secondary to blood loss (chronic) (4) Esophageal stricture Priority: Secondary Status: Chronic (5) HTN (hypertension) Status: Chronic Qualifiers: Hypertension type: essential hypertension Qualified Code(s): I10 - Essential (primary) hypertension (6) CKD (chronic kidney disease) stage 3, GFR 30-59 ml/min Status: Chronic (7) COPD (chronic obstructive pulmonary disease) Status: Chronic Qualifiers: COPD type: unspecified COPD Qualified Code(s): J44.9 - Chronic obstructive pulmonary disease, unspecified (8) Pneumonia Status: Ruled-out Qualifiers: Pneumonia type: due to unspecified organism Laterality: unspecified laterality Lung location: lower lobe of lung Qualified Code(s): J18.1 - Lobar pneumonia, unspecified organism (9) DVT prophylaxis Status: Acute (10) Intertrigo Status: Acute Hospital course: Mr. Panchal is a 72 year old male - Time Spent with Patient Total time spent providing and/or coordinating discharge services: 39min Date of admission: 12/10/17 12:31 Primary care physician: Clif Hamilton MD Consults: 12/10/17 12:40 Consult to Gastroenterology [CONS] Routine Consulting Provider: [facility] [place] Reason for Consult: GI bleed Call Completed: Yes - Constitutional Vitals: Temp Pulse Resp BP Pulse Ox 97.7 F 77 16 168/88 97 12/12/17 16:36 12/12/17 16:36 12/12/17 16:36 12/12/17 16:36 12/12/17 16:36 - Attending Attestation I examined this patient and my medical decision-making was reviewed with the Resident Physician on 12/12/17. I agree with the documented findings, disposition and treatment plan as described except to the extent set forth below. Mr Panchal has been admitted for anemia related to GI bleed from esophagitis. He has been found to have significant esophageal stricture as well. His H/H is stable post transfusion and he is ready for return to ECF. Exam alert. Comfortable Mucus membranes dry Heart distant and not tachy No wheeze abd soft and nontender Plan D/C to ECF today. Biopsy pending Puree diet due to stricture.
[2017-12-12 13:14] LABS: Hematocrit 26.5 % (37.5-50.1)
--- NOTE | 2017-12-12 13:15 | Physician Discharge Referral ---
[facility] Referral Info Transfer To: [facility] Provider in Charge after Transfer: PCP - Diagnosis (1) HTN (hypertension) Priority: Secondary Status: Chronic (2) CKD (chronic kidney disease) stage 3, GFR 30-59 ml/min Priority: Secondary Status: Chronic (3) COPD (chronic obstructive pulmonary disease) Priority: Secondary Status: Chronic (4) Anemia Priority: Secondary Status: Chronic (5) GI bleeding Priority: Primary Status: Suspected (6) Pneumonia Priority: Secondary Status: Ruled-out (7) DVT prophylaxis Priority: Secondary Status: Acute (8) Intertrigo Priority: Secondary Status: Acute Prognosis: Poor - Transfer Medications Prescriptions: Nystatin POWDER [Nystop] 1 appl TP BID #1 bottle Sucralfate [Carafate] 1 gm PO QIDAC #10 tablet Home Medications: Finasteride [Proscar] 5 mg PO DAILY 09/30/16 [History] Acetaminophen [Non-Aspirin] 650 mg PO Q6H PRN 12/10/17 [History] Amoxicillin/Clavulanate [Augmentin] 875 mg PO BIDWM 12/10/17 [History] Ciclopirox Olamine [Ciclodan] 1 appl TP BID 12/10/17 [History] Citalopram [CeleXA] 10 mg PO DAILY 12/10/17 [History] Docusate [Colace] 100 mg PO BID PRN 12/10/17 [History] Docusate [Colace] 200 mg PO DAILY 12/10/17 [History] Famotidine [Pepcid] 10 mg PO DAILY 12/10/17 [History] Lisinopril [Zestril] 5 mg PO DAILY 12/10/17 [History] Loperamide [Imodium] 2 mg PO QID PRN 12/10/17 [History] Megestrol Acetate [Megace] 10 ml PO DAILY 12/10/17 [History] Oxycodone HCl 10 mg PO Q6H PRN 12/10/17 [History] Polyethylene Glycol 3350 [MiraLAX] 17 gm PO DAILY 12/10/17 [History] Pravastatin Sodium [Pravachol] 10 mg PO DAILY 12/10/17 [History] Sennosides/Docusate Sodium [Colace 2-in-1 Tablet] 1 tab PO DAILY PRN 12/10/17 [ History] Tamsulosin HCl [Flomax] 0.4 mg PO DAILY 12/10/17 [History] Nystatin POWDER [Nystop] 1 appl TP BID #1 bottle 12/12/17 [Rx] Sucralfate [Carafate] 1 gm PO QIDAC #10 tablet 12/12/17 [Rx] Allergies/Adverse Reactions: 3 Allergy/AdvReac Type Severity Reaction Status Date / Time ciprofloxacin Allergy Rash Verified 12/10/17 10:56 fluconazole Allergy Rash Verified 12/10/17 10:56 - Respiratory Orders Smoking Cessation: Smoking cessation has been advised. For more information, call the [place] Tobacco Quit Line at 7-012-[facility]-NOW. - Diet Orders Pureed CERTIFICATION: I certify that the transfer of the above named patient to an Extended Care Facility is necessary for the continuing treatment of the diagnosis listed. The above information is true and accurate reflection of patient's current condition. Confidential - Redisclosure prohibited without a patient's written consent.
[2017-12-12 16:37] VITALS: BP 168/88
== END 2017-12-12 17:05 | DRG 381 ==
LOC: EMEROO 10:02 → 3ANU 10:02 → SUATTDRO 12:31 → 3ANU 12:57
PROVIDERS: ADMIT Internal Medicine; ATTEND Internal Medicine

== ENCOUNTER 2017-12-19 09:18 | Inpatient (IN) ==
[2017-12-19] MEDS ORDERED: Pantoprazole 40 MG VIAL IVP ONE (09:35)
--- NOTE | 2017-12-19 09:38 | Emergency Department Note ---
Disposition Clinical Impression: History of GI bleed Anemia Qualifiers: Anemia type: other cause Other causes of anemia: other cause, not classified Qualified Code(s): D64.89 - Other specified anemias GI bleed Qualifiers: GI bleed type/associated pathology: unspecified gastrointestinal hemorrhage type Qualified Code(s): K92.2 - Gastrointestinal hemorrhage, unspecified Disposition: Admitted As Inpatient Condition: Fair Time of Disposition: 11:49 General Adult HPI - General Stated complaint: low HG Time Seen by Provider: 12/19/17 09:24 Source: patient, EMS Mode of arrival: EMS Limitations: no limitations Nursing Notes Reviewed: Yes Vital Signs Reviewed: Yes - History of Present Illness HPI Narrative: Patient is a 72-year-old male that presents to the emergency department due to anemia. Patient was brought in and EMS stated that he had a hemoglobin of 5.8. State that he has a history of GI bleed and was recently discharged from the hospital about one week ago. Due to patient having a history of MRDD minimal history was able to be obtained from the patient. Pain Scale: 0 - Related Data Home Medications Medication Instructions Recorded Confirmed Finasteride [Proscar] 5 mg PO DAILY 09/30/16 12/19/17 Acetaminophen [Non-Aspirin] 650 mg PO Q6H PRN 12/10/17 12/19/17 Ciclopirox Olamine [Ciclodan] 1 appl TP BID 12/10/17 12/19/17 Citalopram [CeleXA] 10 mg PO DAILY 12/10/17 12/19/17 Docusate [Colace] 200 mg PO DAILY 12/10/17 12/19/17 Famotidine [Pepcid] 10 mg PO DAILY 12/10/17 12/19/17 Lisinopril [Zestril] 5 mg PO DAILY 12/10/17 12/19/17 Loperamide [Imodium] 2 mg PO QID PRN 12/10/17 12/19/17 Megestrol Acetate [Megace] 400 mg PO DAILY 12/10/17 12/19/17 Oxycodone HCl 10 mg PO Q6H PRN 12/10/17 12/19/17 Polyethylene Glycol 3350 [MiraLAX] 17 gm PO DAILY 12/10/17 12/19/17 Pravastatin Sodium [Pravachol] 10 mg PO DAILY 12/10/17 12/19/17 Sennosides/Docusate Sodium [Colace 1 tab PO DAILY PRN 12/10/17 12/19/17 2-in-1 Tablet] Tamsulosin HCl [Flomax] 0.4 mg PO DAILY 12/10/17 12/19/17 Omeprazole [PriLOSEC] 20 mg PO BIDAC 12/19/17 12/19/17 Sucralfate [Carafate] 1 gm PO ACHS 12/19/17 12/19/17 Allergies Allergy/AdvReac Type Severity Reaction Status Date / Time ciprofloxacin Allergy Rash Verified 12/10/17 10:56 fluconazole Allergy Rash Verified 12/10/17 10:56 All systems ED: reviewed and negative except as stated. Limitations: ROS unobtainable due to patients medical condition Past Medical History - Past Medical History Medical history: Reports: arthritis, COPD, dementia, GI bleed, hyperlipidemia, hypertension, renal disease, other Surgical history: Reports: cataract, other (Craniotomy. EGD. Colonoscopy.) Psychiatric history: Reports: anxiety - Social History Smoking Status: Unknown if ever smoked Smokeless Tobacco Status: No Alcohol use: Reports: none Drug use: Reports: none Physical Exam - General Limitations: physical limitation General appearance: alert, in no apparent distress - Head Head exam: atraumatic, normocephalic - Eye Eye exam: Present: normal appearance, EOMI - Neck Neck exam: Present: normal inspection, full ROM, trachea midline - Respiratory Respiratory exam: Present: normal lung sounds bilaterally. Absent: respiratory distress, wheezes - Cardiovascular Cardiovascular exam: Present: regular rate, normal rhythm, normal heart sounds, +S1, +S2 - Abdominal Exam Abdominal exam: Present: soft, Non-Tender, normal bowel sounds - Rectal Exam Register Clerk present during exam: Yes Rectal exam: Present: heme (+) stool - Neurological Exam Neurological exam: Present: alert. Absent: oriented X3 - Psychiatric Psychiatric exam: Present: normal affect, normal mood - Skin Skin exam: Present: warm, dry, intact Course Vital Signs Temperature 98.4 F 12/19/17 09:20 Pulse Rate 84 12/19/17 09:20 Respiratory Rate 18 12/19/17 09:20 Blood Pressure 165/86 12/19/17 09:20 O2 Sat by Pulse Oximetry 94 12/19/17 09:20 Temperature 98.3 F 12/19/17 12:10 Pulse Rate 82 12/19/17 12:10 Respiratory Rate 18 12/19/17 12:10 Blood Pressure 149/86 12/19/17 12:10 O2 Sat by Pulse Oximetry 98 12/19/17 12:08 Oxygen Delivery Oxygen Delivery Room Air Medical Decision Making - MDM Narrative Medical decision making narrative: Due to the patient presenting with a hemoglobin of 5.9 that was obtained earlier this morning with a history of GI bleed we will obtain basic laboratory testing including a CBC, BMP and a type and screen as well as an EKG. We will also order 2 units of packed red blood cells to transfuse this patient here in the emergency department due the findings of significant anemia the patient will need to be admitted to the hospital for further evaluation and management. The patient's repeat hemoglobin here in the emergency department was 5.6. The patient also had and elevated BUN which could be elevated due blood breakdown and reabsorption in the GI tract. Patient was also given prontonix here in the ED. I called and spoke with the hospitalist Dr Cr and he has accepted to their service. The patient be and admitted to the hospital for further evaluation and management of the patient's anemia. - Medical Records Medical records reviewed: Yes I reviewed the patient's medical records. - Lab Data Lab results reviewed: Yes I reviewed the patient's lab results. Result diagrams: 12/19/17 09:46 12/19/17 09:46 Lab Results 12/19/17 12/19/17 12/19/17 Range/Units 09:46 09:46 09:46 WBC 8.8 (4.3-11.1) K/mcL RBC 2.26 L (4.19-5.50) M/mcL Hgb 5.6 L* (12.9-16.9) g/dL Hct 18.9 L (37.5-50.1) % MCV 83.6 (83.0-100.0) fL MCH 24.8 L (28.0-33.3) pg MCHC 29.6 L (31.6-35.5) g/dL RDW 17.4 H (11.5-14.5) % Plt Count 451 H (140-400) K/mcL MPV 9.6 (9.4-12.4) fL Seg Neutrophils % 58.0 % Band Neutrophils % 26.0 H (0-4) % Lymphocytes % 12.0 % Monocytes % 2.0 % Metamyelocytes % 2.0 H (0) % Neutrophils # 7.4 (1.6-8.9) K/mcL Lymphocytes # 1.1 (0.6-4.6) K/mcL Monocytes # 0.2 (0.0-1.3) K/mcL Toxic Granulation Present A (Not Present) Platelet Estimate Slight increase H (Normal) Polychromasia 1+ A (Not Present) Hypochromasia Present A (Not Present) Anisocytosis 1+ A (Not Present) Sodium 142 (136-145) mEq/L Potassium 4.1 (3.5-5.1) mEq/L Chloride 114 H (98-107) mEq/L Carbon Dioxide 22 L (23-29) mEq/L BUN 40 H (8-23) mg/dL Creatinine 1.16 (0.70-1.30) mg/dL Est GFR ( Amer) > 60 (> 60) Est GFR (Non-Af Amer) > 60 (> 60) BUN/Creatinine Ratio 34 H (6-26) Glucose 110 H (70-105) mg/dL Calculated Osmolality 304 H (280-300) Calcium 7.8 L (8.6-10.3) mg/dL Blood Type O POSITIVE Antibody Screen NEGATIVE Crossmatch See Detail - EKG Data EKG #1 EKG attestation: Yes I reviewed and interpreted this EKG. EKG results narrative: EKG shows a sinus rhythm at a rate of 92 bpm, NE interval of 203, curious duration of 118, QTC of 447 with a normal axis. There are PVCs present on EKG. No evidence of STEMI on EKG. This is compared to previous EKG on 10/15/16 which showed a sinus rhythm at a rate of 65 is per minute.
--- NOTE | 2017-12-19 09:40 | Emergency Department Note ---
Disposition Clinical Impression: History of GI bleed Anemia Qualifiers: Anemia type: other cause Other causes of anemia: other cause, not classified Qualified Code(s): D64.89 - Other specified anemias Disposition: Admitted As Inpatient Condition: Fair General Adult HPI - General Chief complaint: ED GI Bleed Stated complaint: low HG Time Seen by Provider: 12/19/17 09:24 Source: patient, EMS Mode of arrival: EMS Limitations: no limitations - History of Present Illness Pain Scale: 0 - Related Data Home Medications Medication Instructions Recorded Confirmed Finasteride [Proscar] 5 mg PO DAILY 09/30/16 12/19/17 Acetaminophen [Non-Aspirin] 650 mg PO Q6H PRN 12/10/17 12/19/17 Ciclopirox Olamine [Ciclodan] 1 appl TP BID 12/10/17 12/19/17 Citalopram [CeleXA] 10 mg PO DAILY 12/10/17 12/19/17 Docusate [Colace] 200 mg PO DAILY 12/10/17 12/19/17 Famotidine [Pepcid] 10 mg PO DAILY 12/10/17 12/19/17 Lisinopril [Zestril] 5 mg PO DAILY 12/10/17 12/19/17 Loperamide [Imodium] 2 mg PO QID PRN 12/10/17 12/19/17 Megestrol Acetate [Megace] 400 mg PO DAILY 12/10/17 12/19/17 Oxycodone HCl 10 mg PO Q6H PRN 12/10/17 12/19/17 Polyethylene Glycol 3350 [MiraLAX] 17 gm PO DAILY 12/10/17 12/19/17 Pravastatin Sodium [Pravachol] 10 mg PO DAILY 12/10/17 12/19/17 Sennosides/Docusate Sodium [Colace 1 tab PO DAILY PRN 12/10/17 12/19/17 2-in-1 Tablet] Tamsulosin HCl [Flomax] 0.4 mg PO DAILY 12/10/17 12/19/17 Omeprazole [PriLOSEC] 20 mg PO BIDAC 12/19/17 12/19/17 Sucralfate [Carafate] 1 gm PO ACHS 12/19/17 12/19/17 Allergies Allergy/AdvReac Type Severity Reaction Status Date / Time ciprofloxacin Allergy Rash Verified 12/10/17 10:56 fluconazole Allergy Rash Verified 12/10/17 10:56 Past Medical History - Past Medical History Medical history: Reports: arthritis, COPD, dementia, GI bleed, hyperlipidemia, hypertension, renal disease, other Surgical history: Reports: cataract, other (Craniotomy. EGD. Colonoscopy.) Psychiatric history: Reports: anxiety - Social History Smoking Status: Unknown if ever smoked Smokeless Tobacco Status: No Alcohol use: Reports: none Drug use: Reports: none Physical Exam - General Limitations: no limitations General appearance: alert, in no apparent distress Course Vital Signs Temperature 98.4 F 12/19/17 09:20 Pulse Rate 84 12/19/17 09:20 Respiratory Rate 18 12/19/17 09:20 Blood Pressure 165/86 12/19/17 09:20 O2 Sat by Pulse Oximetry 94 12/19/17 09:20 Temperature 98.3 F 12/19/17 12:08 Pulse Rate 80 12/19/17 12:08 Respiratory Rate 18 12/19/17 12:08 Blood Pressure 162/91 12/19/17 12:08 O2 Sat by Pulse Oximetry 98 12/19/17 12:08 Oxygen Delivery Oxygen Delivery Room Air Medical Decision Making - Lab Data Result diagrams: 12/19/17 09:46 12/19/17 09:46 Lab Results 12/19/17 12/19/17 12/19/17 Range/Units 09:46 09:46 09:46 WBC 8.8 (4.3-11.1) K/mcL RBC 2.26 L (4.19-5.50) M/mcL Hgb 5.6 L* (12.9-16.9) g/dL Hct 18.9 L (37.5-50.1) % MCV 83.6 (83.0-100.0) fL MCH 24.8 L (28.0-33.3) pg MCHC 29.6 L (31.6-35.5) g/dL RDW 17.4 H (11.5-14.5) % Plt Count 451 H (140-400) K/mcL MPV 9.6 (9.4-12.4) fL Seg Neutrophils % 58.0 % Band Neutrophils % 26.0 H (0-4) % Lymphocytes % 12.0 % Monocytes % 2.0 % Metamyelocytes % 2.0 H (0) % Neutrophils # 7.4 (1.6-8.9) K/mcL Lymphocytes # 1.1 (0.6-4.6) K/mcL Monocytes # 0.2 (0.0-1.3) K/mcL Toxic Granulation Present A (Not Present) Platelet Estimate Slight increase H (Normal) Polychromasia 1+ A (Not Present) Hypochromasia Present A (Not Present) Anisocytosis 1+ A (Not Present) Sodium 142 (136-145) mEq/L Potassium 4.1 (3.5-5.1) mEq/L Chloride 114 H (98-107) mEq/L Carbon Dioxide 22 L (23-29) mEq/L BUN 40 H (8-23) mg/dL Creatinine 1.16 (0.70-1.30) mg/dL Est GFR ( Amer) > 60 (> 60) Est GFR (Non-Af Amer) > 60 (> 60) BUN/Creatinine Ratio 34 H (6-26) Glucose 110 H (70-105) mg/dL Calculated Osmolality 304 H (280-300) Calcium 7.8 L (8.6-10.3) mg/dL Blood Type O POSITIVE Antibody Screen NEGATIVE Crossmatch See Detail Attestation Statement - Attestation Attestation: I examined this patient and my medical decision-making was reviewed with the [employer]/PA/Advanced Practice Nurse/Resident Physician. I agree with the documented findings, disposition and treatment plan as described except to the extent set forth below. Patient presents with severe anemia, he does have MRDD and does know his name and that he is at the hospital but does not know the month or the year. He denies any pain, vomiting or blood in the stool but this history is somewhat unreliable. Patient will be transfused and admitted to the hospital, IV Protonix, labs are pending. He is pale but breathing comfortably. 0939 I did review the EKG showing normal sinus rhythm with a rate of 64 and without acute ischemic change and it does also show some nonspecific T-wave change. No evidence of significant arrhythmia 0949
[2017-12-19 10:05] LABS: Hematocrit 18.9 % (37.5-50.1); Mean Corpuscular HGB Conc 29.6 g/dL (31.6-35.5); Mean Corpuscular Hemoglobin 24.8 pg (28.0-33.3); Mean Corpuscular Volume 83.6 fL (83.0-100.0); Mean Platelet Volume 9.6 fL (9.4-12.4); Platelet Count 451 K/mcL (140-400); Red Blood Count 2.26 M/mcL (4.19-5.50); Red Cell Distribution Width 17.4 % (11.5-14.5)
[2017-12-19 10:11] LABS: Hemoglobin 5.6 g/dL (12.9-16.9)
[2017-12-19 10:18] LABS: BUN/Creatinine Ratio 34 (6-26); Blood Urea Nitrogen 40 mg/dL (8-23); Calcium 7.8 mg/dL (8.6-10.3); Carbon Dioxide 22 mEq/L (23-29); Chloride 114 mEq/L (98-107); Glucose 110 mg/dL (70-105); Osmolality,Calculated 304 (280-300); Potassium 4.1 mEq/L (3.5-5.1); Sodium 142 mEq/L (136-145); eGFR For African Americans > 60 (> 60); eGFR For Non-African Americans > 60 (> 60)
[2017-12-19 10:48] LABS: Lymphocytes # 1.1 K/mcL (0.6-4.6); Monocytes # 0.2 K/mcL (0.0-1.3); Neutrophils # 7.4 K/mcL (1.6-8.9)
[2017-12-19 10:50] LABS: Anisocytosis 1+ (Not Present); Hypochromasia Present (Not Present); Toxic Granulation Present (Not Present)
[2017-12-19 10:51] LABS: Polychromasia 1+ (Not Present)
[2017-12-19] MEDS ORDERED: 0.9 % Sodium Chloride 250 ML ONE ×2 (11:36→16:32)
[2017-12-19] MEDS ORDERED: Naloxone 0.4 MG/ML INJ IVP PRN (11:54)
[2017-12-19] MEDS ORDERED: Sennosides/Docusate Sodium TABLET PO PRN (11:57)
[2017-12-19] MEDS ORDERED: Acetaminophen 325 MG TABLET PO PRN (11:57)
[2017-12-19] MEDS ORDERED: *HR* OxyCODONE Immed Rel 5 MG TABLET PO PRN (11:57)
--- NOTE | 2017-12-19 12:03 | Internal Med History&Physical ---
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 Panchal is a 72 year old male who is a background history of a COPD, hypertension, chronic kidney disease, advantage dementia. patient was recently hospitalized for gastrointestinal bleed. Patient underwent EGD and found to have a lower esophageal polyploid mass. Patient was started on appropriate medication and was sent back to the [facility]- term [place] [facility]. today from the [facility] it was noted that patient has a abnormal labs as well as possible bleeding from per rectum and patient was sent to emergency department for further evaluation. Next line workup in the emergency department: Patient was evaluated in the emergency department. Basic labs were drawn. Noted that patient's improvement was 5.6. Reason for admission: Symptomatic anemia. Family history: Noncontributory. Past Med Surg Social Fam HX - Past Medical History Medical history: arthritis, COPD, dementia, GI bleed, hyperlipidemia, hypertension, renal disease, other Psychiatric history: anxiety - Past Surgical History Surgical History: cataract, other (Craniotomy. EGD. Colonoscopy.) - Social History Smoking Status: Unknown if ever smoked Smokeless Tobacco Status: No Alcohol use: none Drug use: none Internal Medicine - H&P: Meds Finasteride [Proscar] 5 mg PO DAILY 09/30/16 [History] Acetaminophen [Non-Aspirin] 650 mg PO Q6H PRN 12/10/17 [History] Ciclopirox Olamine [Ciclodan] 1 appl TP BID 12/10/17 [History] Citalopram [CeleXA] 10 mg PO DAILY 12/10/17 [History] Docusate [Colace] 200 mg PO DAILY 12/10/17 [History] Famotidine [Pepcid] 10 mg PO DAILY 12/10/17 [History] Lisinopril [Zestril] 5 mg PO DAILY 12/10/17 [History] Loperamide [Imodium] 2 mg PO QID PRN 12/10/17 [History] Megestrol Acetate [Megace] 400 mg PO DAILY 12/10/17 [History] Oxycodone HCl 10 mg PO Q6H PRN 12/10/17 [History] Polyethylene Glycol 3350 [MiraLAX] 17 gm PO DAILY 12/10/17 [History] Pravastatin Sodium [Pravachol] 10 mg PO DAILY 12/10/17 [History] Sennosides/Docusate Sodium [Colace 2-in-1 Tablet] 1 tab PO DAILY PRN 12/10/17 [ History] Tamsulosin HCl [Flomax] 0.4 mg PO DAILY 12/10/17 [History] Omeprazole [PriLOSEC] 20 mg PO BIDAC 12/19/17 [History] Sucralfate [Carafate] 1 gm PO ACHS 12/19/17 [History] 3 Allergy/AdvReac Type Severity Reaction Status Date / Time ciprofloxacin Allergy Rash Verified 12/10/17 10:56 fluconazole Allergy Rash Verified 12/10/17 10:56 ROS unobtainable: due to mental status All Systems PM: A 10-system review of systems was performed and is negative for pertinent findings except as documented above in the HPI. - Constitutional Vitals: Temp Pulse Resp BP Pulse Ox 98.4 F 82 18 161/85 98 12/19/17 09:20 12/19/17 11:08 12/19/17 11:08 12/19/17 11:08 12/19/17 11:08 General appearance: Present: A&O X 2, mild distress, pleasant - Head Head exam: Present: atraumatic, normocephalic - Eye Eye exam: Present: PERRL, conjuntiva pink, sclera anicteric Pupils: Present: PERRL - Neck Neck exam general surgery: Present: supple, trachea midline. Absent: lymphadenopathy - Respiratory Respiratory exam: Present: CTAB. Absent: accessory muscle use, rales, rhonchi, wheezes - Cardiovascular Cardiovascular exam: Present: RRR, +S1, +S2. Absent: diastolic murmur, gallop, rubs, systolic murmur - GI/Abdominal GI/Abdominal exam: Present: normal bowel sounds, soft, no peritoneal signs. Absent: distended, tenderness - Extremities Exam Extremities exam: Present: warm, radial pulses palpable and symmetrical. Absent : calf tenderness, cyanotic, pedal edema - Neurological Exam Neurological exam: Present: CN II-XII intact, oriented X3, no focal deficits. Absent: pronater drift, facial droop, speech deficit - Skin Skin exam: Present: dry, intact Internal Med - H&P Results - Labs CBC & Chem 7: 12/19/17 09:46 12/19/17 09:46 - Assessment and plan (1) GI bleeding Current Visit: No Status: Ruled-out Assessment and plan: 72/male Admitted with GI bleed. Plan: Admit as inpatient. IV PPI. Clear Liquid diet. Nothing by mouth from Friday midnight. Patient is scheduled for EGD on Friday. Blood transfusion 2. Keep hemoglobin above 7. IV fluids. I examined this patient in the emergency room. The family members at bedside. Qualifiers: GI bleed type/associated pathology: gastritis Gastritis type: acute gastritis Qualified Code(s): K29.01 - Acute gastritis with bleeding (2) Dementia Current Visit: Yes Status: Acute Assessment and plan: Patient does have advanced dementia. Patient does not have any behavioral changes. We will continue home medication. Qualifiers: Dementia type: unspecified type Dementia behavioral disturbance: without behavioral disturbance Qualified Code(s): F03.90 - Unspecified dementia without behavioral disturbance (3) COPD (chronic obstructive pulmonary disease) Current Visit: No Status: Chronic Assessment and plan: Patient has a COPD. at this point patient is not in evaluation. We will resume home medication. Qualifiers: COPD type: unspecified COPD Qualified Code(s): J44.9 - Chronic obstructive pulmonary disease, unspecified (4) Erosive esophagitis Current Visit: No Status: Acute Assessment and plan: Patient has a decent EGD where they found a polypoid mass along with the erosive esophagitis. Biopsies were taken. Pathology: Brushings: Pertinacious material no malignancy. Pathology: Histopathology of the lower esophagus: Metaplasia noted. No dysplasia /no malignancy I have personally spoke with the pathologist. Discussed the EGD findings. Informed him that there will be another EGD on Friday. (5) DVT prophylaxis Current Visit: No Status: Acute Assessment and plan: This patient is not a candidate for pharmacological DVT prophylaxis. Antiembolic stockings provided. Medical decision making: This patient has a moderate to severe risk of worsening in spite of being on appropriate medication due to the underlying complex comorbid conditions. - Time Spent With Patient Total time spent is greater than 50% in coordination of care (as documented) at patient's floor/unit and/or counseling patient:
[2017-12-19] MEDS: 0.9 % Sodium Chloride 1,000 ML IVC SCH (19:30)
[2017-12-19] MEDS: Pantoprazole 40 MG VIAL IVP SCH (20:02)
[2017-12-19] MEDS ORDERED: Clotrimazole 1% CRM 15 GM TUBE TP SCH (21:00)
[2017-12-19 21:14] LABS: Basophils % 0.2 %; Eosinophils # 0.2 K/mcL (0.0-0.6); Eosinophils % 2.4 %; Hematocrit 23.3 % (37.5-50.1); Immature Granulocytes % 2.7 % (0-4); Lymphocytes # 1.1 K/mcL (0.6-4.6); Lymphocytes % 11.5 %; Mean Corpuscular HGB Conc 32.6 g/dL (31.6-35.5); Mean Corpuscular Hemoglobin 27.3 pg (28.0-33.3); Mean Corpuscular Volume 83.8 fL (83.0-100.0); Mean Platelet Volume 9.2 fL (9.4-12.4); Monocytes # 0.8 K/mcL (0.0-1.3); Monocytes % 8.7 %; Neutrophils # 6.8 K/mcL (1.6-8.9); Nucleated Red Blood Cells 0.7 /100 WBC (0); Platelet Count 317 K/mcL (140-400); Red Blood Count 2.78 M/mcL (4.19-5.50); Red Cell Distribution Width 16.9 % (11.5-14.5); Segmented Neutrophils % 74.5 %
[2017-12-19 21:15] LABS: Hemoglobin 7.6 g/dL (12.9-16.9)
[2017-12-20 02:02] LABS: Alanine Aminotransferase 21 Units/L (7-52); Albumin 2.2 g/dL (3.5-5.7); Albumin/Globulin Ratio 0.9 (1.1-2.2); Alkaline Phosphatase 42 Units/L (34-104); Aspartate Amino Transferase 11 Units/L (13-39); BUN/Creatinine Ratio 28 (6-26); Bilirubin,Total 0.4 mg/dL (0.3-1.0); Blood Urea Nitrogen 27 mg/dL (8-23); Calcium 7.3 mg/dL (8.6-10.3); Carbon Dioxide 22 mEq/L (23-29); Chloride 114 mEq/L (98-107); Globulin 2.4 g/dL (2.4-3.5); Glucose 106 mg/dL (70-105); Magnesium 1.7 mg/dL (1.6-2.6); Osmolality,Calculated 296 (280-300); Phosphorous 3.1 mg/dL (2.7-4.5); Potassium 3.8 mEq/L (3.5-5.1); Sodium 140 mEq/L (136-145); Total Protein 4.6 g/dL (6.4-8.9); eGFR For African Americans > 60 (> 60); eGFR For Non-African Americans > 60 (> 60)
[2017-12-20 02:36] LABS: Activated Partial Thrombo Time 25.9 Seconds (26.0-36.0); INR 1.2; Prothrombin Time 13.4 Seconds (9.4-12.1)
[2017-12-20 02:47] LABS: Basophils % 0.4 %; Eosinophils # 0.2 K/mcL (0.0-0.6); Eosinophils % 2.7 %; Hematocrit 22.1 % (37.5-50.1); Hemoglobin 7.2 g/dL (12.9-16.9); Immature Granulocytes % 2.3 % (0-4); Lymphocytes # 1.2 K/mcL (0.6-4.6); Lymphocytes % 14.9 %; Mean Corpuscular HGB Conc 32.6 g/dL (31.6-35.5); Mean Corpuscular Hemoglobin 27.5 pg (28.0-33.3); Mean Corpuscular Volume 84.4 fL (83.0-100.0); Mean Platelet Volume 9.4 fL (9.4-12.4); Monocytes # 0.7 K/mcL (0.0-1.3); Monocytes % 8.6 %; Neutrophils # 5.6 K/mcL (1.6-8.9); Nucleated Red Blood Cells 0.5 /100 WBC (0); Platelet Count 324 K/mcL (140-400); Red Blood Count 2.62 M/mcL (4.19-5.50); Red Cell Distribution Width 16.8 % (11.5-14.5); Segmented Neutrophils % 71.1 %
[2017-12-20] MEDS: Pantoprazole 40 MG VIAL IVP SCH ×2 (05:37→16:31)
[2017-12-20 07:15] LABS: Basophils # 0.1 K/mcL (0.0-0.2); Basophils % 0.6 %; Eosinophils # 0.3 K/mcL (0.0-0.6); Eosinophils % 3.7 %; Hematocrit 26.6 % (37.5-50.1); Immature Granulocytes % 1.7 % (0-4); Lymphocytes # 1.4 K/mcL (0.6-4.6); Lymphocytes % 16.8 %; Mean Corpuscular HGB Conc 30.1 g/dL (31.6-35.5); Mean Corpuscular Volume 86.4 fL (83.0-100.0); Mean Platelet Volume 9.6 fL (9.4-12.4); Monocytes # 0.7 K/mcL (0.0-1.3); Neutrophils # 5.8 K/mcL (1.6-8.9); Nucleated Red Blood Cells 0.2 /100 WBC (0); Platelet Count 355 K/mcL (140-400); Red Blood Count 3.08 M/mcL (4.19-5.50); Red Cell Distribution Width 17.2 % (11.5-14.5); Segmented Neutrophils % 69.2 %
[2017-12-20] MEDS: Finasteride 5 MG TABLET PO SCH (08:26)
[2017-12-20] MEDS: Megestrol Acetate 400 MG/10 ML UDC PO SCH (08:26)
[2017-12-20] MEDS: 0.9 % Sodium Chloride 1,000 ML IVC SCH (08:26)
[2017-12-20] MEDS: Ketoconazole 2% CRM 15 GM TUBE TP SCH ×2 (08:34→21:55)
--- NOTE | 2017-12-20 11:05 | Internal Med Progress Note ---
Date of Encounter: 12/20/17 Time of Encounter: 11:02 - Assessment and plan (1) GI bleeding Current Visit: No Status: Ruled-out Assessment and plan: Acute severe blood loss anemia secondary to upper GI bleed, history of severe esophagitis, chronic gastritis, esophageal ulcers and benign polypoid esophageal tumor. Has esophageal stenosis IV PROTONIX twice a day. Clear Liquid diet. Nothing by mouth from Friday midnight. Patient is scheduled for EGD on Friday morning. Blood transfusion 2. Transfuse a third unit of blood IV fluids. Qualifiers: GI bleed type/associated pathology: gastritis Gastritis type: acute gastritis Qualified Code(s): K29.01 - Acute gastritis with bleeding (2) Elevated troponin Current Visit: Yes Status: Acute Assessment and plan: Possibly secondary to demand ischemia related to severe blood loss anemia Denies chest pain May repeat EKG, troponins are adynamic at this point Consider cardiology consult Not a candidate for anticoagulation or antiplatelet therapy due to severe GI bleed (3) COPD (chronic obstructive pulmonary disease) Current Visit: No Status: Chronic Assessment and plan: Not oxygen dependent No exacerbation Qualifiers: COPD type: unspecified COPD Qualified Code(s): J44.9 - Chronic obstructive pulmonary disease, unspecified (4) DVT prophylaxis Current Visit: No Status: Acute Assessment and plan: This patient is not a candidate for pharmacological DVT prophylaxis. Antiembolic stockings provided. (5) Erosive esophagitis Current Visit: No Status: Acute Assessment and plan: EGD during last hospitalization found a polypoid mass along with the erosive esophagitis. Pathology: Brushings: Pertinacious material no malignancy. Pathology: Histopathology of the lower esophagus: Metaplasia noted. No dysplasia /no malignancy (6) Dementia Current Visit: Yes Status: Acute Assessment and plan: Patient does have advanced dementia. Patient does not have any behavioral changes. Qualifiers: Dementia type: unspecified type Dementia behavioral disturbance: without behavioral disturbance Qualified Code(s): F03.90 - Unspecified dementia without behavioral disturbance - Time Spent With Patient Total time spent is greater than 50% in coordination of care (as documented) at patient's floor/unit and/or counseling patient: - Subjective Interval history: The patient has dementia, denies any chest pain, appears to be comfortable, nurse mentions that he continues to have dark bowel movements, unable to complete review of systems due to the patient's MRDD - Constitutional Vitals: Temp Pulse Resp BP Pulse Ox 98.4 F 85 17 148/80 96 12/20/17 10:31 12/20/17 10:31 12/20/17 10:31 12/20/17 10:31 12/20/17 10:31 General appearance: Present: A&O X 2, mild distress, pleasant - Head Head exam: Present: atraumatic, normocephalic - Eye Eye exam: Present: PERRL, conjuntiva pink, sclera anicteric Pupils: Present: PERRL - Neck Neck exam general surgery: Present: supple, trachea midline. Absent: lymphadenopathy - Respiratory Respiratory exam: Present: CTAB. Absent: accessory muscle use, rales, rhonchi, wheezes - Cardiovascular Cardiovascular exam: Present: RRR, +S1, +S2. Absent: diastolic murmur, gallop, rubs, systolic murmur - GI/Abdominal GI/Abdominal exam: Present: normal bowel sounds, soft, no peritoneal signs. Absent: distended, tenderness - Extremities Exam Extremities exam: Present: warm, radial pulses palpable and symmetrical. Absent : calf tenderness, cyanotic, pedal edema - Neurological Exam Neurological exam: Present: CN II-XII intact, oriented X3, no focal deficits. Absent: pronater drift, facial droop, speech deficit - Skin Skin exam: Present: dry, intact Internal Medicine: Result - Labs CBC & Chem 7: 12/20/17 06:07 12/20/17 01:33 Labs: Short CBC 12/19/17 12/20/17 12/20/17 Range/Units 20:57 01:33 06:07 WBC 9.1 7.8 8.4 (4.3-11.1) K/mcL Hgb 7.6 L D 7.2 L 8.0 L (12.9-16.9) g/dL Hct 23.3 L 22.1 L 26.6 L (37.5-50.1) % Plt Count 317 324 355 (140-400) K/mcL Neutrophils # 6.8 5.6 5.8 (1.6-8.9) K/mcL BMP 12/20/17 01:33 Sodium 140 Potassium 3.8 Chloride 114 H Carbon Dioxide 22 L BUN 27 H Creatinine 0.97 Glucose 106 H Calcium 7.3 L Cardiac Enzymes 12/19/17 12/20/17 12/20/17 Range/Units 19:40 01:33 07:27 Troponin I 0.80 H* 0.77 H* 0.63 H* (< 0.04) ng/mL Liver Function 12/20/17 Range/Units 01:33 Total Bilirubin 0.4 (0.3-1.0) mg/dL AST 11 L (13-39) Units/L ALT 21 (7-52) Units/L Alkaline Phosphatase 42 (34-104) Units/L Albumin 2.2 L (3.5-5.7) g/dL - ABG Interpretation ABG results: PT/INR, D-dimer PT 13.4 Seconds (9.4-12.1) H 12/20/17 01:33 - VTE Documentation of Mechanical Device: Graduated compression elastic hosiery Consult Discharge Plan - Plan Referrals: Clif Hamilton MD [Primary Care Provider] -
[2017-12-20] MEDS ORDERED: 0.9 % Sodium Chloride 250 ML ONE (13:54)
[2017-12-21 01:13] LABS: Hematocrit 29.2 % (37.5-50.1); Hemoglobin 9.4 g/dL (12.9-16.9); Mean Corpuscular HGB Conc 32.2 g/dL (31.6-35.5); Mean Corpuscular Hemoglobin 26.5 pg (28.0-33.3); Mean Corpuscular Volume 82.3 fL (83.0-100.0); Mean Platelet Volume 9.2 fL (9.4-12.4); Platelet Count 349 K/mcL (140-400); Red Blood Count 3.55 M/mcL (4.19-5.50); Red Cell Distribution Width 16.4 % (11.5-14.5)
[2017-12-21 01:37] LABS: BUN/Creatinine Ratio 20 (6-26); Blood Urea Nitrogen 16 mg/dL (8-23); Calcium 7.5 mg/dL (8.6-10.3); Carbon Dioxide 21 mEq/L (23-29); Chloride 109 mEq/L (98-107); Chol/HDL Ratio 3.5 (0-4.9); Cholesterol 80 mg/dL (< 200); Glucose 86 mg/dL (70-105); HDL Cholesterol 23 mg/dL (40-59); LDL Cholesterol,Calculated 41 mg/dL (0-99); Osmolality,Calculated 286 (280-300); Potassium 3.8 mEq/L (3.5-5.1); Sodium 138 mEq/L (136-145); Triglycerides 80 mg/dL (< 150); eGFR For African Americans > 60 (> 60); eGFR For Non-African Americans > 60 (> 60)
[2017-12-21] MEDS: Pantoprazole 40 MG VIAL IVP SCH ×2 (05:45→16:52)
[2017-12-21] MEDS: Megestrol Acetate 400 MG/10 ML UDC PO SCH (07:41)
[2017-12-21] MEDS: Finasteride 5 MG TABLET PO SCH (07:42)
[2017-12-21] MEDS: Ketoconazole 2% CRM 15 GM TUBE TP SCH ×2 (07:42→20:06)
--- NOTE | 2017-12-21 08:51 | Internal Med Progress Note ---
Date of Encounter: 12/21/17 Time of Encounter: 08:49 - Assessment and plan (1) GI bleeding Current Visit: No Status: Ruled-out Assessment and plan: Acute severe blood loss anemia secondary to upper GI bleed, history of severe esophagitis, chronic gastritis, esophageal ulcers and benign polypoid esophageal tumor. Has esophageal stenosis as well IV PROTONIX twice a day. Clear Liquid diet. Nothing by mouth from Friday midnight. Patient is scheduled for EGD on Friday morning. Has received 3 units of blood IV fluids. Qualifiers: GI bleed type/associated pathology: gastritis Gastritis type: acute gastritis Qualified Code(s): K29.01 - Acute gastritis with bleeding (2) Elevated troponin Current Visit: Yes Status: Acute Assessment and plan: Possibly secondary to demand ischemia related to severe blood loss anemia Denies chest pain Troponins are adynamic at this point Consider cardiology consult Not a candidate for anticoagulation or antiplatelet therapy due to severe GI bleed for now (3) COPD (chronic obstructive pulmonary disease) Current Visit: No Status: Chronic Assessment and plan: Not oxygen dependent No exacerbation Qualifiers: COPD type: unspecified COPD Qualified Code(s): J44.9 - Chronic obstructive pulmonary disease, unspecified (4) DVT prophylaxis Current Visit: No Status: Acute Assessment and plan: This patient is not a candidate for pharmacological DVT prophylaxis. Antiembolic stockings provided. (5) Erosive esophagitis Current Visit: No Status: Acute Assessment and plan: EGD during last hospitalization found a polypoid mass along with the erosive esophagitis. Pathology: Brushings: Pertinacious material no malignancy. Pathology: Histopathology of the lower esophagus: Metaplasia noted. No dysplasia /no malignancy (6) Dementia Current Visit: Yes Status: Acute Assessment and plan: Patient does have advanced dementia. Patient does not have any behavioral changes. Qualifiers: Dementia type: unspecified type Dementia behavioral disturbance: without behavioral disturbance Qualified Code(s): F03.90 - Unspecified dementia without behavioral disturbance (7) CKD (chronic kidney disease) stage 3, GFR 30-59 ml/min Current Visit: No Status: Chronic - Time Spent With Patient Total time spent is greater than 50% in coordination of care (as documented) at patient's floor/unit and/or counseling patient: - Subjective Interval history: Has dementia, denies any chest pain, appears to be comfortable, nurse mentions that he continues to have dark bowel movements, unable to complete review of systems due to the patient's MRDD - Constitutional Vitals: Temp Pulse Resp BP Pulse Ox 99.1 F 73 15 158/77 95 12/21/17 07:08 12/21/17 07:08 12/21/17 07:08 12/21/17 07:08 12/21/17 07:31 General appearance: Present: A&O X 2, mild distress, pleasant Exam: - Head Head exam: Present: atraumatic, normocephalic - Eye Eye exam: Present: PERRL, conjuntiva pink, sclera anicteric Pupils: Present: PERRL - Neck Neck exam general surgery: Present: supple, trachea midline. Absent: lymphadenopathy - Respiratory Respiratory exam: Present: CTAB. Absent: accessory muscle use, rales, rhonchi, wheezes - Cardiovascular Cardiovascular exam: Present: RRR, +S1, +S2. Absent: diastolic murmur, gallop, rubs, systolic murmur - GI/Abdominal GI/Abdominal exam: Present: normal bowel sounds, soft, no peritoneal signs. Absent: distended, tenderness - Extremities Exam Extremities exam: Present: warm, radial pulses palpable and symmetrical. Absent : calf tenderness, cyanotic, pedal edema - Neurological Exam Neurological exam: Present: CN II-XII intact, oriented X2, no focal deficits. Absent: pronater drift, facial droop, speech deficit - Skin Skin exam: Present: dry, intact Internal Medicine: Result - Labs CBC & Chem 7: 12/21/17 00:59 12/21/17 00:59 Labs: Short CBC 12/21/17 Range/Units 00:59 WBC 10.0 (4.3-11.1) K/mcL Hgb 9.4 L (12.9-16.9) g/dL Hct 29.2 L (37.5-50.1) % Plt Count 349 (140-400) K/mcL BMP 12/21/17 00:59 Sodium 138 Potassium 3.8 Chloride 109 H Carbon Dioxide 21 L BUN 16 Creatinine 0.82 Glucose 86 Calcium 7.5 L - ABG Interpretation ABG results: PT/INR, D-dimer PT 13.4 Seconds (9.4-12.1) H 12/20/17 01:33 - VTE Documentation of Mechanical Device: Graduated compression elastic hosiery Consult Discharge Plan - Plan Referrals: Clif Hamilton MD [Primary Care Provider] -
[2017-12-21] MEDS: 0.9 % Sodium Chloride 1,000 ML IVC SCH (09:18)
[2017-12-22] MEDS: 0.9 % Sodium Chloride 1,000 ML IVC SCH (04:36)
[2017-12-22] MEDS: Pantoprazole 40 MG VIAL IVP SCH ×2 (04:36→18:28)
[2017-12-22 05:43] LABS: Hematocrit 27.7 % (37.5-50.1); Hemoglobin 9.1 g/dL (12.9-16.9)
--- NOTE | 2017-12-22 05:54 | Electrocardiograph Report ---
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
--- NOTE | 2017-12-22 08:29 | Internal Med Progress Note ---
Date of Encounter: 12/22/17 Time of Encounter: 08:28 - Assessment and plan (1) GI bleeding Current Visit: No Status: Ruled-out Assessment and plan: Acute severe blood loss anemia secondary to upper GI bleed, history of severe esophagitis, chronic gastritis, esophageal ulcers and benign polypoid esophageal tumor. Has esophageal stenosis as well IV PROTONIX twice a day. Nothing by mouth for possible EGD Has received 3 units of blood GI consulted IV fluids. Qualifiers: GI bleed type/associated pathology: gastritis Gastritis type: acute gastritis Qualified Code(s): K29.01 - Acute gastritis with bleeding (2) Elevated troponin Current Visit: Yes Status: Acute Assessment and plan: Possibly secondary to demand ischemia related to severe blood loss anemia Denies chest pain Troponins are adynamic at this point Consider cardiology consult if CP Not a candidate for anticoagulation or antiplatelet therapy due to severe GI bleed for now (3) COPD (chronic obstructive pulmonary disease) Current Visit: No Status: Chronic Assessment and plan: Not oxygen dependent No exacerbation Qualifiers: COPD type: unspecified COPD Qualified Code(s): J44.9 - Chronic obstructive pulmonary disease, unspecified (4) DVT prophylaxis Current Visit: No Status: Acute Assessment and plan: This patient is not a candidate for pharmacological DVT prophylaxis. Antiembolic stockings provided. (5) Erosive esophagitis Current Visit: No Status: Acute Assessment and plan: EGD during last hospitalization found a polypoid mass along with the erosive esophagitis. Pathology: Brushings: Pertinacious material no malignancy. Pathology: Histopathology of the lower esophagus: Metaplasia noted. No dysplasia /no malignancy (6) Dementia Current Visit: Yes Status: Acute Assessment and plan: Patient does have advanced dementia. Patient does not have any behavioral changes. Qualifiers: Dementia type: unspecified type Dementia behavioral disturbance: without behavioral disturbance Qualified Code(s): F03.90 - Unspecified dementia without behavioral disturbance (7) CKD (chronic kidney disease) stage 3, GFR 30-59 ml/min Current Visit: No Status: Chronic - Time Spent With Patient Total time spent is greater than 50% in coordination of care (as documented) at patient's floor/unit and/or counseling patient: - Subjective Interval history: No issues overnight. Has dementia, denies any chest pain, appears to be comfortable, nurse mentions that he continues to have dark bowel movements, unable to complete review of systems due to the patient's MRDD - Constitutional Vitals: Temp Pulse Resp BP Pulse Ox 99.5 F 80 16 153/81 95 12/22/17 06:22 12/22/17 06:22 12/22/17 06:22 12/22/17 06:22 12/22/17 06:22 General appearance: Present: A&O X 2, pleasant Exam: - Head Head exam: Present: atraumatic, normocephalic - Eye Eye exam: Present: PERRL, conjuntiva pink, sclera anicteric Pupils: Present: PERRL - Neck Neck exam general surgery: Present: supple, trachea midline. Absent: lymphadenopathy - Respiratory Respiratory exam: Present: CTAB. Absent: accessory muscle use, rales, rhonchi, wheezes - Cardiovascular Cardiovascular exam: Present: RRR, +S1, +S2. Absent: diastolic murmur, gallop, rubs, systolic murmur - GI/Abdominal GI/Abdominal exam: Present: normal bowel sounds, soft, no peritoneal signs. Absent: distended, tenderness - Extremities Exam Extremities exam: Present: warm, radial pulses palpable and symmetrical. Absent : calf tenderness, cyanotic, pedal edema - Neurological Exam Neurological exam: Present: CN II-XII intact, oriented X2, no focal deficits. Absent: pronater drift, facial droop, speech deficit - Skin Skin exam: Present: dry, intact Internal Medicine: Result - Labs CBC & Chem 7: 12/22/17 05:06 12/21/17 00:59 Labs: Short CBC 12/22/17 Range/Units 05:06 Hgb 9.1 L (12.9-16.9) g/dL Hct 27.7 L (37.5-50.1) % - ABG Interpretation ABG results: PT/INR, D-dimer PT 13.4 Seconds (9.4-12.1) H 12/20/17 01:33 - VTE Documentation of Mechanical Device: Graduated compression elastic hosiery Consult Discharge Plan - Plan Referrals: Clif Hamilton MD [Primary Care Provider] -
--- NOTE | 2017-12-22 11:28 | Gastroenterology Consult Note ---
<Celeste Spain - Last Filed: 12/23/17 08:06> Date of Encounter: 12/23/17 Time of Encounter: 09:55 - Assessment and plan (1) Anemia Status: Chronic Assessment and plan: Pt presents with Hgb 5.6 and reports of tarry stools. He had EGD last month that showed polypoid tumor in lower esophagus, negative pathology for malignancy. He needs repeat EGD to rule out AVM, PUD, bleeding esophageal ulcers , and to repeat biopsies on lower esophageal mass. Spoke with pt's Sarah ALMODOVAR and consent recieved, questions answered and she verbalized understanding. 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 - Time Spent With Patient Total time spent is greater than 50% in coordination of care (as documented) at patient's floor/unit and/or counseling patient: GI History of Present Illness - Data of Consult Patient: known to practice within the last 3 years Consult date: 12/22/17 Requesting Physician: Chase Cr - Consult Narrative Reason for consult: anemia History of present illness: Mr. Panchal is a 72 year old male who is a background history of a COPD, hypertension, chronic kidney disease, advantage dementia. He was recently hospitalized for gastrointestinal bleed. Patient underwent EGD by Dr Carlisle and found to have a lower esophageal polyploid mass. 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 Patient was started on appropriate medication and was sent back to the long-term care/ECF. today from the ECF it was noted that patient has a abnormal labs as well as possible bleeding from per rectum and patient was sent to emergency department for further evaluation. He was found to have a Hgb of 5.6, he has been transfused 3 units PRBC and hgb is now 9.1. He has MRDD and dementia and is a poor historian. Nursing report one episode of tarry stools. EGD 12/11/17 esophageal ulcers and tumor biopsy positive for Marks's without dysplasia Colon: 09/27 diverticulosis, sesile serated adenoma and tubular adenoma Past Med Surg Social Fam HX - Past Medical History Medical history: arthritis, COPD, dementia, GI bleed, hyperlipidemia, hypertension, renal disease, other Psychiatric history: anxiety - Past Surgical History Surgical History: cataract, other (Craniotomy. EGD. Colonoscopy.) - Social History Smoking Status: Unknown if ever smoked Smokeless Tobacco Status: No Alcohol use: none Drug use: none ROS unobtainable: due to mental status - Constitutional Vitals: Temp Pulse Resp BP Pulse Ox 98.9 F 79 18 152/59 93 12/22/17 10:53 12/22/17 10:53 12/22/17 10:53 12/22/17 10:53 12/22/17 10:53 Exam: CONSTITUTIONAL:~alert, no acute distress.~HEAD:~normocephalic.~EYES:~no jaundice.~NECK:~no obvious swelling.~HEART:~regular rate and rhythm, no murmurs. ~LUNGS:~bilateral fair air entry.~ABDOMEN:~non distended, soft, non tender, no masses palpable, no organomegaly.~RECTAL EXAM:~Deferred.~EXTREMITIES:~no clubbing, cyanosis, trace BLE edema noted.~SKIN:~pallor noted, no stigmata of chronic liver disease.~NEUROLOGIC:~no obvious focal defect.~~~~ Results - Labs CBC & Chem 7: 12/23/17 01:29 12/23/17 01:29 Labs: Last Result Calcium 7.5 mg/dL (8.6-10.3) L 12/21/17 00:59 Troponin I 0.63 ng/mL (< 0.04) H* 12/20/17 07:27 Triglycerides 80 mg/dL (< 150) 12/21/17 00:59 Stool Occult Blood Negative (Negative) 12/21/17 23:09 Entire Visit Hgb 9.1 g/dL (12.9-16.9) L 12/22/17 05:06 Hct 27.7 % (37.5-50.1) L 12/22/17 05:06 PT 13.4 Seconds (9.4-12.1) H 12/20/17 01:33 Total Bilirubin 0.4 mg/dL (0.3-1.0) 12/20/17 01:33 AST 11 Units/L (13-39) L 12/20/17 01:33 ALT 21 Units/L (7-52) 12/20/17 01:33 - ABG ABG results: PT/INR, D-dimer PT 13.4 Seconds (9.4-12.1) H 12/20/17 01:33 Consult Discharge Plan - Plan Additional Instructions: F/up with PCP in 1-2 weeks F/up with GI as scheduled Referrals: Clif Hamilton MD [Primary Care Provider] - <Tyler Carlisle - Last Filed: 12/30/17 18:35> Date of Encounter: 12/23/17 - Time Spent With Patient Total time spent is greater than 50% in coordination of care (as documented) at patient's floor/unit and/or counseling patient: GI History of Present Illness - Data of Consult Requesting Physician: Luci Saenz MD - Consult Narrative History of present illness: Mr. Panchal is a 72 year old male - Constitutional Vitals: Temp Pulse Resp BP Pulse Ox 98.0 F 76 16 127/83 97 12/24/17 12:10 12/24/17 12:10 12/24/17 12:10 12/24/17 12:10 12/24/17 12:10 Results - Labs CBC & Chem 7: 12/24/17 01:11 12/24/17 01:11 Labs: Last Result Calcium 7.3 mg/dL (8.6-10.3) L 12/24/17 01:11 Troponin I 0.63 ng/mL (< 0.04) H* 12/20/17 07:27 Triglycerides 80 mg/dL (< 150) 12/21/17 00:59 Stool Occult Blood Negative (Negative) 12/21/17 23:09 Entire Visit Hgb 9.8 g/dL (12.9-16.9) L 12/24/17 01:11 Hct 31.4 % (37.5-50.1) L 12/24/17 01:11 PT 13.4 Seconds (9.4-12.1) H 12/20/17 01:33 Total Bilirubin 0.4 mg/dL (0.3-1.0) 12/20/17 01:33 AST 11 Units/L (13-39) L 12/20/17 01:33 ALT 21 Units/L (7-52) 12/20/17 01:33 - ABG ABG results: PT/INR, D-dimer PT 13.4 Seconds (9.4-12.1) H 12/20/17 01:33 - Attending Attestation presents once again with severe anemia EGD last admission revealed an ulcerated mass in the distal esophagus at the GE junction. Biopsies suggested marked inflammation with ulceration noted without evidence of any dysplasia in a setting of Marks's esophagus. We may need to repeat the endoscopy on the patient and take more biopsies and brushings for cytology I have personally performed a face to face evaluation on this patient. I have reviewed and agree with the care plan. History and Exam by me shows:
[2017-12-22] MEDS ORDERED: *HR* Propofol 200 MG/20 ML VIAL IVP ONE (11:38)
[2017-12-22] MEDS ORDERED: Lidocaine -MPF 2% 2 ML VIAL ONE (11:40)
[2017-12-22] MEDS: Megestrol Acetate 400 MG/10 ML UDC PO SCH (11:44)
[2017-12-22] MEDS: Ketoconazole 2% CRM 15 GM TUBE TP SCH ×2 (11:45→19:49)
[2017-12-22] MEDS: Finasteride 5 MG TABLET PO SCH (11:45)
--- NOTE | 2017-12-22 12:28 | Anesthesia Evaluation PreOp ---
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: TIA (hx of anxiety and depression), Other (dementia) Other Medical History: Renal (CKD stage II), GERD, Other (anemia) Anesthesia History: No Prior Anesthetic Complications, Past Anesthesia (EGD) Alcohol Use: none Drug use: none Medications and Allergies Finasteride [Proscar] 5 mg PO DAILY 09/30/16 [History] Acetaminophen [Non-Aspirin] 650 mg PO Q6H PRN 12/10/17 [History] Ciclopirox Olamine [Ciclodan] 1 appl TP BID 12/10/17 [History] Citalopram [CeleXA] 10 mg PO DAILY 12/10/17 [History] Docusate [Colace] 200 mg PO DAILY 12/10/17 [History] Famotidine [Pepcid] 10 mg PO DAILY 12/10/17 [History] Lisinopril [Zestril] 5 mg PO DAILY 12/10/17 [History] Loperamide [Imodium] 2 mg PO QID PRN 12/10/17 [History] Megestrol Acetate [Megace] 400 mg PO DAILY 12/10/17 [History] Oxycodone HCl 10 mg PO Q6H PRN 12/10/17 [History] Polyethylene Glycol 3350 [MiraLAX] 17 gm PO DAILY 12/10/17 [History] Pravastatin Sodium [Pravachol] 10 mg PO DAILY 12/10/17 [History] Sennosides/Docusate Sodium [Colace 2-in-1 Tablet] 1 tab PO DAILY PRN 12/10/17 [ History] Tamsulosin HCl [Flomax] 0.4 mg PO DAILY 12/10/17 [History] Omeprazole [PriLOSEC] 20 mg PO BIDAC 12/19/17 [History] Sucralfate [Carafate] 1 gm PO ACHS 12/19/17 [History] 3 Allergy/AdvReac Type Severity Reaction Status Date / Time ciprofloxacin Allergy Rash Verified 12/10/17 10:56 fluconazole Allergy Rash Verified 12/10/17 10:56 - Meds/Allergy Pre-op Review Medications Reviewed: Yes Allergies Reviewed: Yes Beta Blockers on Current Med List: No Anesthesia Results - Labs 12/22/17 05:06 12/21/17 00:59 - Imaging EKG: report reviewed (10/2016 NSR, borderline left axis deviation) Anesthesia Exam Vital Signs/O2 Sat, Most Current Temp Pulse Resp BP Pulse Ox 98.9 F 79 18 152/59 93 12/22/17 10:53 12/22/17 10:53 12/22/17 10:53 12/22/17 10:53 12/22/17 10:53 Height: 1.83m Weight: 83kg NPO (# of Hours): >8 Pain Scale: 0 Pain Scale Used: Numeric (1 - 10) - HEENT Pupil (Motor): Pupils equal, EOMI Mallampati: III Teeth: Edentulous Oral Opening: Greater than 3 - FERMENTING CELLAR DROPPER LOC: Confused FERMENTING CELLAR DROPPER Motor: Normal RUE, Normal LUE, Normal RLE, Normal LLE, Normal Face FERMENTING CELLAR [employer]OPPER Sensory: Normal: RUE, LUE, RLE, LLE, Face - Cardiac Rhythm: Regular - Pulmonary Breath Sounds: bilateral Clear Respiratory Effort: Symmetrical Anesthesia Assess/Plan ASA Score: 3 Anesthetic Plan: MAC Monitoring Plan: Standard Monitors Recovery Plan: PACU
--- NOTE | 2017-12-22 15:29 | Electrocardiograph Report ---
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
[2017-12-23 02:15] LABS: Hemoglobin 10.3 g/dL (12.9-16.9); Mean Corpuscular HGB Conc 31.2 g/dL (31.6-35.5); Mean Corpuscular Hemoglobin 26.2 pg (28.0-33.3); Mean Platelet Volume 9.6 fL (9.4-12.4); Platelet Count 385 K/mcL (140-400); Red Blood Count 3.93 M/mcL (4.19-5.50)
[2017-12-23 02:34] LABS: BUN/Creatinine Ratio 15 (6-26); Blood Urea Nitrogen 14 mg/dL (8-23); Calcium 7.8 mg/dL (8.6-10.3); Carbon Dioxide 20 mEq/L (23-29); Chloride 109 mEq/L (98-107); Glucose 77 mg/dL (70-105); Osmolality,Calculated 287 (280-300); Potassium 3.7 mEq/L (3.5-5.1); Sodium 139 mEq/L (136-145); eGFR For African Americans > 60 (> 60); eGFR For Non-African Americans > 60 (> 60)
[2017-12-23] MEDS: Pantoprazole 40 MG VIAL IVP SCH ×2 (06:35→18:15)
[2017-12-23] MEDS: Finasteride 5 MG TABLET PO SCH (08:00)
[2017-12-23] MEDS: Megestrol Acetate 400 MG/10 ML UDC PO SCH (08:00)
[2017-12-23] MEDS: Ketoconazole 2% CRM 15 GM TUBE TP SCH ×2 (08:01→22:46)
--- NOTE | 2017-12-23 22:00 | Internal Med Progress Note ---
Date of Encounter: 12/23/17 Time of Encounter: 13:15 - Assessment and plan (1) Anemia Status: Acute Assessment and plan: Patient was admitted with acute blood loss anemia due to upper GI bleed. Hemoglobin was as low as 5.6 at admission, currently stable around 10, received 3 units PRBC transfusion during this admission. Continue to monitor closely. Qualifiers: Anemia type: other cause Other causes of anemia: acute posthemorrhagic Qualified Code(s): D62 - Acute posthemorrhagic anemia (2) GI bleeding Status: Acute Assessment and plan: Suspected upper GI bleed. Gastroenterology has been consulted, patient underwent EGD which showed mucosal changes due to Marks's disease in distal esophagus, small mass with no bleeding at the gastroesophageal junction which was partially obstructing, diffuse gastritis without bleeding. Continue IV PPI, Carafate, clear liquid diet as tolerated. Monitor hemoglobin closely. Follow-up pathology reports as the mass at the gastroesophageal junction appeared to be malignant per report. Qualifiers: GI bleed type/associated pathology: gastritis Gastritis type: chronic gastritis Qualified Code(s): K29.51 - Unspecified chronic gastritis with bleeding (3) CKD (chronic kidney disease) stage 3, GFR 30-59 ml/min Status: Chronic Assessment and plan: Serum creatinine and GFR at baseline. Avoid nephrotoxins and monitor closely. (4) COPD (chronic obstructive pulmonary disease) Status: Chronic Qualifiers: COPD type: unspecified COPD Qualified Code(s): J44.9 - Chronic obstructive pulmonary disease, unspecified (5) DVT prophylaxis Status: Acute (6) Dementia Status: Chronic Qualifiers: Dementia type: unspecified type Dementia behavioral disturbance: without behavioral disturbance Qualified Code(s): F03.90 - Unspecified dementia without behavioral disturbance (7) Elevated troponin Status: Acute (8) Ventricular bigeminy seen on satellite project site monitor Status: Acute Assessment and plan: Patient's telemetry shows multiple PVCs with intermittent ventricular bigeminy and trigeminy. Will start low-dose beta courtney, continue to monitor. Patient had a troponin leak at admission with peak troponin at 0.8, which is likely demand ischemia due to severe anemia. Patient is not a candidate for aggressive cardiac workup due to advanced dementia, severe anemia and GI bleed. - Time Spent With Patient Total time spent is greater than 50% in coordination of care (as documented) at patient's floor/unit and/or counseling patient: - Subjective Interval history: Patient is unable to provide any history or answer appropriately due to dementia and altered mental status; denies pain; - Constitutional Vitals: Temp Pulse Resp BP Pulse Ox 99.1 F 85 18 116/58 94 12/23/17 17:53 12/23/17 17:53 12/23/17 17:53 12/23/17 17:53 12/23/17 17:53 General appearance: Present: A&O X 1. Absent: answers questions appropriately - Respiratory Respiratory exam: Present: CTAB. Absent: accessory muscle use, rales, rhonchi, wheezes - Cardiovascular Cardiovascular exam: Present: irregular rhythm, +S1, +S2. Absent: diastolic murmur, gallop, rubs, systolic murmur - GI/Abdominal GI/Abdominal exam: Present: normal bowel sounds, soft, no peritoneal signs. Absent: distended, tenderness - Extremities Exam Extremities exam: Present: warm, radial pulses palpable and symmetrical. Absent : calf tenderness, cyanotic, pedal edema - Neurological Exam Neurological exam: Present: altered, no focal deficits (moves all 4 extremities spontaneously; cannot assess further due to mental status). Absent: pronater drift, facial droop, speech deficit - Skin Skin exam: Present: dry, excoriation (B/L inguinal rash/dermatitis), intact Internal Medicine: Result - Labs CBC & Chem 7: 12/24/17 01:11 12/24/17 01:11 Labs: Short CBC 12/23/17 Range/Units 01:29 WBC 10.1 (4.3-11.1) K/mcL Hgb 10.3 L (12.9-16.9) g/dL Hct 33.0 L (37.5-50.1) % Plt Count 385 (140-400) K/mcL BMP 12/23/17 01:29 Sodium 139 Potassium 3.7 Chloride 109 H Carbon Dioxide 20 L BUN 14 Creatinine 0.91 Glucose 77 Calcium 7.8 L - ABG Interpretation ABG results: PT/INR, D-dimer PT 13.4 Seconds (9.4-12.1) H 12/20/17 01:33 - VTE Documentation of Mechanical Device: Graduated compression elastic hosiery Consult Discharge Plan - Plan Additional Instructions: F/up with PCP in 1-2 weeks F/up with GI as scheduled Referrals: Clif Hamilton MD [Primary Care Provider] -
[2017-12-24 02:12] LABS: Basophils # 0.1 K/mcL (0.0-0.2); Basophils % 0.5 %; Eosinophils # 0.3 K/mcL (0.0-0.6); Eosinophils % 2.9 %; Hematocrit 31.4 % (37.5-50.1); Hemoglobin 9.8 g/dL (12.9-16.9); Lymphocytes # 1.6 K/mcL (0.6-4.6); Lymphocytes % 14.5 %; Mean Corpuscular HGB Conc 31.2 g/dL (31.6-35.5); Mean Corpuscular Hemoglobin 25.9 pg (28.0-33.3); Mean Corpuscular Volume 82.8 fL (83.0-100.0); Mean Platelet Volume 9.8 fL (9.4-12.4); Monocytes # 0.6 K/mcL (0.0-1.3); Monocytes % 5.6 %; Neutrophils # 8.4 K/mcL (1.6-8.9); Platelet Count 385 K/mcL (140-400); Red Blood Count 3.79 M/mcL (4.19-5.50); Red Cell Distribution Width 17.1 % (11.5-14.5); Segmented Neutrophils % 75.5 %
[2017-12-24 02:34] LABS: BUN/Creatinine Ratio 15 (6-26); Blood Urea Nitrogen 15 mg/dL (8-23); Calcium 7.3 mg/dL (8.6-10.3); Carbon Dioxide 22 mEq/L (23-29); Chloride 110 mEq/L (98-107); Glucose 92 mg/dL (70-105); Osmolality,Calculated 290 (280-300); Potassium 3.5 mEq/L (3.5-5.1); Sodium 140 mEq/L (136-145); eGFR For African Americans > 60 (> 60); eGFR For Non-African Americans > 60 (> 60)
[2017-12-24] MEDS: Pantoprazole 40 MG VIAL IVP SCH (06:22)
[2017-12-24] MEDS: Megestrol Acetate 400 MG/10 ML UDC PO SCH (08:48)
[2017-12-24] MEDS: Finasteride 5 MG TABLET PO SCH (08:49)
[2017-12-24] MEDS: Ketoconazole 2% CRM 15 GM TUBE TP SCH (08:50)
[2017-12-24 12:13] VITALS: BP 127/83
--- NOTE | 2017-12-24 12:21 | Discharge Summary ---
- NOTES TO OUTPATIENT PROVIDER Notes to Outpatient Provider: Monitor Hb, f/up esophageal mass biopsy report; Orders not resulted at time of discharge: Pending orders 12/22/17 13:05 Surgical Pathology [PTH] Routine 12/24/17 11:14 ECG 12 lead ECG [ECG] Stat Date of Encounter: 12/24/17 Time of Encounter: 12:19 - Discharge Diagnosis (1) Anemia Priority: Primary Status: Acute Qualifiers: Anemia type: other cause Other causes of anemia: acute posthemorrhagic Qualified Code(s): D62 - Acute posthemorrhagic anemia (2) GI bleeding Priority: Primary Status: Acute Qualifiers: GI bleed type/associated pathology: gastritis Gastritis type: chronic gastritis Qualified Code(s): K29.51 - Unspecified chronic gastritis with bleeding (3) CKD (chronic kidney disease) stage 3, GFR 30-59 ml/min Priority: Secondary Status: Chronic (4) COPD (chronic obstructive pulmonary disease) Priority: Secondary Status: Chronic Qualifiers: COPD type: unspecified COPD Qualified Code(s): J44.9 - Chronic obstructive pulmonary disease, unspecified (5) Erosive esophagitis Priority: Primary Status: Acute (6) Dementia Priority: Secondary Status: Chronic Qualifiers: Dementia type: unspecified type Dementia behavioral disturbance: without behavioral disturbance Qualified Code(s): F03.90 - Unspecified dementia without behavioral disturbance (7) Elevated troponin Priority: Primary Status: Acute Hospital course: Mr. Panchal is a 72 year old male jail resident, with the above medical problems including advanced dementia, was sent from the jail for evaluation of anemia. He was noted to have acute blood loss anemia with hemoglobin 5.6 at admission, received 3 units PRBC transfusion during this admission with improvement in hemoglobin to around 10. He was noted to have upper GI bleed. Gastroenterology was consulted, patient underwent EGD which showed mucosal changes due to Marks's disease in distal esophagus, small mass with no bleeding at the gastroesophageal junction which was partially obstructing, suspicious for malignancy, diffuse gastritis without bleeding. He was continued on twice-daily IV PPI and Carafate. Patient was noted to have abnormal telemetry with frequent PVCs, PACs, ventricular bigeminy and trigeminy, he was started on beta courtney which he tolerated well. I have discussed this patient's case with YESIKA Miles at [facility], where the patient resides; discussed about following pathology reports from EGD for suspected malignancy, following up EKG, discussing CODE STATUS with patient's power of litigation attorney in light of his advanced dementia, recurrent anemia and GI bleeds. Patient is otherwise medically stable for discharge back to jail at this time. Discharge discussed with: nurse, social work, other (PCP) - Time Spent with Patient Total time spent providing and/or coordinating discharge services: Greater than 30 minutes (45 min) - Discharge Medications Home Medications: Finasteride [Proscar] 5 mg PO DAILY 09/30/16 [History] Acetaminophen [Non-Aspirin] 650 mg PO Q6H PRN 12/10/17 [History] Ciclopirox Olamine [Ciclodan] 1 appl TP BID 12/10/17 [History] Citalopram [CeleXA] 10 mg PO DAILY 12/10/17 [History] Docusate [Colace] 200 mg PO DAILY 12/10/17 [History] Famotidine [Pepcid] 10 mg PO DAILY 12/10/17 [History] Lisinopril [Zestril] 5 mg PO DAILY 12/10/17 [History] Loperamide [Imodium] 2 mg PO QID PRN 12/10/17 [History] Megestrol Acetate [Megace] 400 mg PO DAILY 12/10/17 [History] Polyethylene Glycol 3350 [MiraLAX] 17 gm PO DAILY 12/10/17 [History] Pravastatin Sodium [Pravachol] 10 mg PO DAILY 12/10/17 [History] Sennosides/Docusate Sodium [Colace 2-in-1 Tablet] 1 tab PO DAILY PRN 12/10/17 [ History] Tamsulosin HCl [Flomax] 0.4 mg PO DAILY 12/10/17 [History] Omeprazole [PriLOSEC] 20 mg PO BIDAC 12/19/17 [History] Sucralfate [Carafate] 1 gm PO ACHS 12/19/17 [History] Metoprolol [Lopressor] 25 mg PO BID tablet 12/24/17 [Rx] Oxycodone HCl 5 mg PO Q6H PRN 5 Days #5 12/24/17 [Rx] Allergies/Adverse Reactions: 3 Allergy/AdvReac Type Severity Reaction Status Date / Time ciprofloxacin Allergy Rash Verified 12/10/17 10:56 fluconazole Allergy Rash Verified 12/10/17 10:56 Date of admission: 12/19/17 14:50 Primary care physician: Clif Hamilton MD Discharging clinician: Luci Saenz Anticipated date of discharge: 12/24/17 - Constitutional Vitals: Temp Pulse Resp BP Pulse Ox 98.0 F 76 16 127/83 97 12/24/17 12:10 12/24/17 12:10 12/24/17 12:10 12/24/17 12:10 12/24/17 12:10 General appearance: Present: A&O X 1, pleasant. Absent: answers questions appropriately - Cardiovascular Cardiovascular exam: Present: irregular rhythm, +S1, +S2. Absent: diastolic murmur, gallop, rubs, systolic murmur - Patient Status Disposition: Transfer SNF Condition: Fair Functional capacity at discharge: bed bound Overall status at discharge: patient is progressing back to baseline - Discharge Instructions Follow Up With: Clif Hamilton MD [Primary Care Provider] - Additional Instructions: F/up with PCP in 1-2 weeks F/up with GI as scheduled - Diet and Activity Activity: as per physical therapy Diet: other (soft diet) - VTE Documentation of Mechanical Device: Graduated compression elastic hosiery
--- NOTE | 2017-12-24 12:30 | Physician Discharge Referral ---
ExtendedCare Referral Info Transfer To: [facility] Provider in Charge: Luci Saenz Provider in Charge after Transfer: PCP Institutional Level of Care: Skilled - Diagnosis (1) Anemia Priority: Primary Status: Acute (2) GI bleeding Priority: Primary Status: Acute (3) CKD (chronic kidney disease) stage 3, GFR 30-59 ml/min Priority: Secondary Status: Chronic (4) COPD (chronic obstructive pulmonary disease) Priority: Secondary Status: Chronic (5) Erosive esophagitis Priority: Primary Status: Acute (6) Dementia Priority: Secondary Status: Chronic (7) Elevated troponin Priority: Primary Status: Acute Expected Duration of Placement: manager intermediate Prognosis: Fair - Transfer Medications Home Medications: Finasteride [Proscar] 5 mg PO DAILY 09/30/16 [History] Acetaminophen [Non-Aspirin] 650 mg PO Q6H PRN 12/10/17 [History] Ciclopirox Olamine [Ciclodan] 1 appl TP BID 12/10/17 [History] Citalopram [CeleXA] 10 mg PO DAILY 12/10/17 [History] Docusate [Colace] 200 mg PO DAILY 12/10/17 [History] Famotidine [Pepcid] 10 mg PO DAILY 12/10/17 [History] Lisinopril [Zestril] 5 mg PO DAILY 12/10/17 [History] Loperamide [Imodium] 2 mg PO QID PRN 12/10/17 [History] Megestrol Acetate [Megace] 400 mg PO DAILY 12/10/17 [History] Polyethylene Glycol 3350 [MiraLAX] 17 gm PO DAILY 12/10/17 [History] Pravastatin Sodium [Pravachol] 10 mg PO DAILY 12/10/17 [History] Sennosides/Docusate Sodium [Colace 2-in-1 Tablet] 1 tab PO DAILY PRN 12/10/17 [ History] Tamsulosin HCl [Flomax] 0.4 mg PO DAILY 12/10/17 [History] Omeprazole [PriLOSEC] 20 mg PO BIDAC 12/19/17 [History] Sucralfate [Carafate] 1 gm PO ACHS 12/19/17 [History] Metoprolol [Lopressor] 25 mg PO BID tablet 12/24/17 [Rx] Oxycodone HCl 5 mg PO Q6H PRN 5 Days #5 12/24/17 [Rx] Allergies/Adverse Reactions: 3 Allergy/AdvReac Type Severity Reaction Status Date / Time ciprofloxacin Allergy Rash Verified 12/10/17 10:56 fluconazole Allergy Rash Verified 12/10/17 10:56 - Respiratory Orders Smoking Cessation: Smoking cessation has been advised. For more information, call the [employer] Tobacco Quit Line at 2-497-OSNF-NOW. - Advance Directives Power of Cobol Mainframe Developer: Yes Code Status: Full Code - Mobility Orders Ambulate - Rehabiliation Orders Rehab Potential: Poor Rehab Orders: ROM Exercises, Evaluation for Physical Therapy, Evaluation for Occupational Therapy - Diet Orders Mechanical Soft CERTIFICATION: I certify that the transfer of the above named patient to an Extended Care Facility is necessary for the continuing treatment of the diagnosis listed. The above information is true and accurate reflection of patient's current condition. Confidential - Redisclosure prohibited without a patient's written consent.
--- NOTE | 2017-12-26 22:42 | Electrocardiograph Report ---
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
== END 2017-12-24 14:54 | DRG 811 ==
LOC: EMEROO 09:18 → 3NENU 09:18 → SUATTDRO 14:50
PROVIDERS: ADMIT Internal Medicine; ATTEND Internal Medicine
PROC: ENDOEBX (2017-12-22 14:00)